=== PATIENT | female | born 1985 | race Caucasian/White ===

== ENCOUNTER 2017-02-22 10:36 | Inpatient (IN) ==
[2017-02-22] MEDS ORDERED: CEFAZOLIN PREMIX (MC ONLY) 2 GM/50 ML BAG IV ONE (10:55)
[2017-02-22] MEDS ORDERED: FAMOTIDINE PB 20 MG/50 ML BAG IV ONE (10:55)
[2017-02-22] MEDS ORDERED: CITRIC ACID/SODIUM CITRATE 30ml PO ONE (10:55)
--- OUTSIDE RECORDS SUMMARY | 2017-02-22 10:55 | External Medical Summary ---
:1985 Author Organization eClinicalWorks Care Team Providers Name Role Phone Mitesh Dickinson Provider Role Unavailable Allergies No Known Allergies Problems Problem Type Condition ICD-9 Code Onset Dates Condition Status Problem Hyperlipemia 272.4 Active Medications Medication Code System Code Instructions Start Date End Date Status Dosage alprazolam [facility] [address]64 0.25 mg orally 2 July 11, 1 tab(s) times a day as 2015 needed for anxiety Results No Known Results Summary Purpose eClinicalWorks Submission
--- OUTSIDE RECORDS SUMMARY | 2017-02-22 10:56 | External Medical Summary | Continuity of Care Document ---
:1985 Author Organization [facility] Address [address] [place], [place] [id number] Phone Care Team Providers Name Role Phone Mitesh Dickinson DO Unavailable Unavailable Allergies, Adverse Reactions, Alerts Substance Reaction Severity Status No Known Drug Allergies Unknown Active Medications Medication Instructions Dosage Effective Status Comments Dates (start - stop) valacyclovir 1 take 1 tablet by - Active gram tablet oral route every day for 5 days levothyroxine 50 take 1 tablet by 50 MCG - Active Adrian Kay , mcg tablet oral route every MD supervising day 28 mg take 1 tablet by Not Available - Active iron-800 mcg oral route every tablet day Problems Condition Effective Dates (start - stop) Clinical Status Encntr screen for infections w sexl - mode of transmiss state, incidental - Encounter for suprvsn of normal - , first trimester 8 weeks gestation of - Encounter for suprvsn of normal - , second trimester 20 weeks gestation of - Generalized anxiety disorder - 9 weeks gestation of - Irregular Menses Abnormal Pap, LSIL - Abnormal Pap, ALEXANDER - Encntr screen for infections w sexl mode of transmiss Encounter for test, result - positive state, incidental state, incidental Endo, nutritional and metab diseases - comp preg, first tri Encounter for suprvsn of normal - , first trimester 13 weeks gestation of - Abnormal Pap, LSIL Abnormal Pap, LSIL Encounter for test, result - negative 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) w/o abn findings Encntr screen for infections w sexl mode of transmiss Pap Smear Screening, Cervix - Encntr screen for infections w sexl mode of transmiss Pap Smear Screening, Cervix High risk heterosexual behavior Contact w and exposure to infect w a - sexl mode of transmiss Encounter for suprvsn of normal - , first trimester 10 weeks gestation of - Encounter for suprvsn of normal - , first trimester Less than 8 weeks gestation of - Encounter for suprvsn of normal - , first trimester 13 weeks gestation of - 9 weeks gestation of - Encounter for suprvsn of normal - , first trimester Encounter for suprvsn of normal - , first trimester 13 weeks gestation of - Encounter for suprvsn of normal - , second trimester 16 weeks gestation of - Encounter for screening of - mother 20 weeks gestation of - Encounter for suprvsn of normal - , second trimester 22 weeks gestation of - Encounter for suprvsn of normal - , second trimester 23 weeks gestation of - Encounter for suprvsn of normal - , second trimester 24 weeks gestation of - IUD Surveillance - Active Trichomonas Vaginitis - Active Vaginal Discharge - Active Herpes Simplex Virus Active Procedures Procedure Date Unknown Results Test Name Date and Time Measure Units Reference Range Abnormal Flag Comments Unknown Advance Directives Directive Yes / No Effective Date File Name Unknown Encounters Encounter Practice Location Reason(s) Diagnoses Date Provider Care Description For Visit Team Members Lowell Mishra Encounter for George-2 Rahul In Womens suprvsn of normal 6-201 [place]. 700 [facility] [place], , second 7 Medical PO Box [email or web address] weeks Center 1522, gestation of [place], 120, [place], [place], [id number], [place], [place] [id number] tel:+ , [place]. tel: [phone] Lowell Mishra Encounter for George-2 Rahul In Womens suprvsn of normal 0-201 [place]. 700 [facility] [place], , second 7 Medical PO Box [email or web address] weeks Center 1522, gestation of [place], 120, [place], [place], [id number], [place] [id number] tel:+ , [place]. tel: [phone] Lowell Mishra Encounter for George-1 Rahul In Womens suprvsn of normal 2-201 [place]. 700 [facility] [place], , second 7 Medical PO Box weeks Center 1522, gestation of [place], 120, [place], [place], [id number], [place] [id number] tel:+ , [place]. tel: [phone] [facility] [place]-0 Rahul In Womens 9-201 [place]. 700 [facility] [place], 7 Medical PO Box Center 1522, [place], 120, [place], [place], [id number], [place] [id number] tel:+ , [place]. tel:[phone] Lowell Mishra Encounter for Juancarlos-2 Rahul In Womens suprvsn of normal 8-201 [place]. 700 [facility] [place], , second 7 Medical PO Box [email or web address] weeks Center 1522, gestation of [place], 120, [place], [place], [id number], [place], [place] [id number] tel:+ , [place]. tel:[phone] Lowell Mishra Encounter for Juancarlos-2 Rahul In Womens Ultrasound screening 8-201 [place]. 700 [facility] [place], of [email or web address] weeks 7 Medical PO Box gestation of Center 1522, [place], 120, [place], [place], , [place] [id number] tel:+2 , [place]. tel: [phone] [facility] Encounter for Juancarlos-0 Rahul In Womens suprvsn of normal 1-201 [place]. 700 [facility] [place], , second 7 Medical PO Box [email or web address] weeks Center 1522, gestation of [place], 120, [place], [place], [id number], [place] [id number] tel: , [place]. tel: [phone] [facility] Encounter for May-1 Rahul In Womens suprvsn of normal 1-201 [place]. 700 [facility] [place], , first 7 Medical PO Box [email or web address] weeks Center 1522, gestation of [place], 120, [place], [place], [id number], [place], [place] [id number] tel: , [place]. tel: [phone] [facility] Endo, nutritional May-1 Rahul In Womens Ultrasound and metab diseases 1-201 [place]. 700 [facility] [place], comp preg, first 7 Medical PO Box triEncounter for Center 1522, suprvsn of normal [place], , first 120, [place], [email or web address] weeks [place], [id number], gestation of [place], [place] [id number] tel: , [place]. tel: [phone] Lowell Mishra Encounter for May-0 Rahul In Womens suprvsn of normal 9-201 [place]. 700 [facility] [place], , first 7 Medical PO Box [email or web address] weeks Center 1522, gestation of [place], 120, [place], [place], [id number], [place], [place] [id number] tel: , [place]. tel: [phone] [facility] Contact w and Apr-2 Rahul In Womens exposure to infect 0-201 [place]. 700 [facility] [place], w a sexl mode of 7 Medical PO Box transmissEncounter Center 1522, for suprvsn of [place], normal , 120, [place], first [email or web address] Mishra, [id number], weeks gestation of [place], [place] [id number] tel: , [place]. tel: [phone] Lowell Mishra 9 weeks gestation Apr-1 Rahul In Womens of 2-201 [place]. 700 [facility] [place], pregnancyEncounter 7 Medical PO Box for suprvsn of Center 1522, normal , [place], first trimester 120, [place], [place], [id number], [place], [place] [id number] tel:+ , [place]. tel: [phone] Lowell Mishra Generalized anxiety Apr-1 Rahul In Womens disorder9 weeks 0-201 [place]. 700 [facility], gestation of 7 Medical PO Box Center 1522, [place], 120, [place], [place], [id number], [place], [place] [id number] tel: , [place]. tel: [phone] Lowell Mishra Encounter for Mar-3 Rahul In Womens suprvsn of normal 0-201 [place]. 700 [facility], , first 7 Medical PO Box trimesterLess than Center 1522, 8 weeks gestation [place], of 120, [place], [place], [id number], [place], [place] [id number] tel:+ , [place]. tel: [phone] Lowell Mishra state, Mar-1 Rahul In Womens incidentalEncounter 6-201 [place]. 700 [facility], for suprvsn of 7 Medical PO Box normal , Center 1522, first trimester8 [place], weeks gestation of 120, [place], [place], , [place], [place] [id number] tel: , [place]. tel: [phone] Lowell Mishra Irregular Mar-0 [place] In Womens MensesAbnormal Pap, 8-201 [facility]. Health [place], LSILAbnormal Pap, 7 700 PO Box AGUSEncntr screen [place] [id number], for infections w Leland Sanam, sexl mode of [place], transmissEncounter 120, , for test, [place], [place] result [place], tel:+ positive [phone] state, , [place]. incidental tel: state, incidental [phone] Lowell Mishra Encntr screen for Aug-2 [place] In Womens infections w sexl 2-201 [place]. [facility] [place], mode of 6 700 PO Box transmissPap Smear Medical 1522, Screening, Center [place], CervixHigh risk [place], heterosexual 120, [id number], behavior [place], [place], tel:+ [phone] , [place]. tel: [phone] [facility] Abnormal Pap, Jun- Rahul In Womens LSILAbnormal Pap, - [place]. 700 [facility], LSILEncounter for 6 Medical PO Box test, Center 1522, result negative [place], 120, [place], [place], [id number], [place], [place] [id number] tel: , [place]. 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 [facility] [place], w/o abn 6 700 PO Box findingsEncntr Medical 1522, screen for Center [place], infections w sexl [place], mode of 120, , transmissEncntr [place]ish[place], screen for [place], tel: infections w sexl [phone] mode of , [place]. transmissPap Smear tel: Screening, Cervix [phone] Lowell Mishra Mar-0 [place] In Womens 4-200 [facility]. [facility], 8 700 PO Box Medical 1522, [address] [place] [address] [place], 120, [id number], [place], [place], tel:[phone] , [place]. tel: [phone] Family History Family Member Diagnosis Age At Onset Maternal uncle Diabetes mellitus Paternal Grandfather Diabetes mellitus Immunizations Vaccine Date Status Comments Unknown Payers Payer name Insurance type Covered libertarian ID [facility]) [facility] Medicare ALWAYS CI [id number] [facility] [id number] Medica [place] [id number] Social History Type Description Quantity Date Captured Unknown Vital Signs Date / Height Weight BMI Pulse Blood Temperature Respiratory Body Head BMI Time: Rate Pressure Rate Surface Circumference percentile Area Unknown Chief Complaint And Reason For Visit Unknown Chief Complaint And Reason For Visit Reason For Referral Reason For Referral Unknown Plan Of Care Date Type Action Status Appointment Ricky Dupree BOOKED Future Order: Radiology Order Ultrasound < 14 wks ([id number]) Ordered Future Order: Lab Order Pap Smear With HPV Reflex If ASCUS Ordered ([id number]) Future Order: Lab Order Pap Smear With HPV Reflex If ASCUS Ordered ([id number]) Future Order: Radiology Order Complete OB Ultrasound > 14 Ordered Weeks ([id number]) Date Type Problem Goal Intervention Status Start Date Unknown. History Of Present Illness Encounter Date Complaint History Of Present Illness This patient has no known history of present illness Functional Status Encounter Date Functional Assessment Cognitive Assessment Unknown Medications Administered Medication Instructions Dosage Effective Dates (start - stop) Status Comments Drug Treatment Unknown Instructions Date Instruction Additional Information HIV and other routine tests risk factors identified by history anticipated course of care nutrition and weight gain counseling, special diet toxoplasmosis precautions (cats / raw meat) sexual activity exercise indications for ultrasound influenza vaccine environmental / work hazards travel use of any medications (including supplements, vitamins, herbs, OTC drugs) domestic violence seat belt use childbirth classes / hospital facilities hospital registration genetic testing new ob handbook
--- OUTSIDE RECORDS SUMMARY | 2017-02-22 10:59 | External Medical Summary | Continuity of Care Document ---
:1985 Author Organization [facility] Address [address] [place], [place] [id number] Phone Care Team Providers Name Role Phone [...] 1 tablet by 50 MCG - Active dArian Kay , mcg tablet oral route every MD supervising day 28 mg take 1 tablet by Not Available - Active iron-800 mcg oral route every tablet day Problems Condition Effective Dates (start - stop) Clinical Status Encntr screen for infections w sexl - mode of transmiss Encounter for suprvsn of normal - , first trimester state, incidental - 8 weeks gestation of - 20 weeks gestation of - Encounter for suprvsn of normal - , second trimester Generalized anxiety disorder - 9 weeks gestation of - Irregular Menses Abnormal Pap, LSIL - Abnormal Pap, ALEXANDER - Encntr screen for infections w sexl mode of transmiss Encounter for test, result - positive state, incidental state, incidental Endo, nutritional and metab diseases - comp preg, first tri Encounter for suprvsn of normal - , first trimester 13 weeks gestation of - Endo, nutritional and metab diseases - comp preg, third tri Encounter for suprvsn of normal - , third trimester 28 weeks gestation of - Abnormal Pap, LSIL Abnormal Pap, LSIL Encounter for test, result - negative 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 [...] first trimester 10 weeks gestation of - Less than 8 weeks gestation of - Encounter for suprvsn of normal - , first trimester Encounter for suprvsn of normal - , first trimester 9 weeks gestation of - Encounter for suprvsn of normal - , first trimester 13 weeks gestation of - 13 weeks gestation of - Encounter for suprvsn of normal - , first trimester Encounter for suprvsn of normal - , second trimester 16 weeks gestation of - Encounter for screening of - mother 20 weeks gestation of - 22 weeks gestation of - Encounter for suprvsn of normal - , second trimester Encounter for suprvsn of normal - , second trimester 23 weeks gestation of - 24 weeks gestation of - Encounter for suprvsn of normal - , second trimester IUD Surveillance - Active Trichomonas Vaginitis - Active Vaginal Discharge - Active Herpes Simplex Virus Active Procedures Procedure Date Unknown Results Test Name Date and Time Measure Units Reference Range Abnormal Flag Comments Unknown Advance Directives Directive Yes / No Effective Date File Name Unknown Encounters Encounter Practice Location Reason(s) Diagnoses Date Provider Care Description For Visit Team Members [facility], nutritional Aug-2 Rahul In Womens and metab diseases 3-201 [place]. 700 [facility] [place], comp preg, third 7 Medical PO Box triEncounter for Center 1522, suprvsn of normal [place], , third 120, [place], [email or web address] weeks Mishra, , gestation of [place], [id number] tel:+ , [place]. tel: [phone] Lowell Mishra Aug-0 Rahul In Womens 4-201 [place]. 700 [facility] [place], 7 Medical PO Box [place] 1522, [place], 120, [place], [place], [id number], [place], [place] [id number] tel: , . tel: [phone] Lowell Mishra 24 weeks gestation George-2 Rahul In Womens of 6-201 [place]. 700 [facility] [place], pregnancyEncounter 7 Medical PO Box for suprvsn of [place] 1522, normal , [place], second trimester 120, [place], [place], , [place], [place] [id number] tel: , . tel: [phone] Lowell Mishra Encounter for George-2 Rahul In Womens suprvsn of normal 0-201 [place]. 700 [facility] [place], , second 7 Medical PO Box [email or web address] weeks Center 1522, gestation of [place], 120, [place], [place], , [place], [place] [id number] tel: , . tel: [phone] Lowell Mishra 22 weeks gestation George-1 Rahul In Womens 2-201 [place]. 700 [facility] [place], pregnancyEncounter 7 Medical PO Box for suprvsn of Center 1522, normal , [place], second trimester 120, [place], [place], , [place], [place] [id number] tel: , . tel: [phone] Lowell Mishra 20 weeks gestation Juancarlos-2 Rahul In Womens of 8-201 [place]. 700 [facility] [place], pregnancyEncounter 7 Medical PO Box for suprvsn of Center 1522, normal , [place], second trimester 120, [place], [place], [id number], [place], [place] [id number] tel:+ , [place]. tel:[phone] [facility] Encounter for Juancarlos-2 Rahul In Womens Ultrasound screening 8 [place]. 700 [facility] [place], of [email or web address] weeks 7 Medical PO Box gestation of Center 1522, [place], 120, [place], [place], [id number], [place], [place] [id number] tel:+ , [place]. tel: [phone] [facility] Encounter for Juancarlos-0 Rahul In Womens suprvsn of normal [place]. 700 [facility] [place], , second 7 Medical PO Box [email or web address] weeks Center 1522, gestation of [place], 120, [place], [place], [id number], [place], [place] [id number] tel:+ , [place]. tel:[phone] Lowell Mishra 13 weeks gestation May-1 Rahul In Womens of [place]. 700 [facility] [place], pregnancyEncounter 7 Medical PO Box for suprvsn of Center 1522, normal , [place], first trimester 120, [place], [place], [id number], [place], [place] [id number] tel:+ , [place]. tel: [phone] Lowell Mishra Endo, nutritional May-1 Rahul In Womens Ultrasound and metab diseases 1- [place]. 700 [facility] [place], comp preg, first 7 Medical PO Box triEncounter for Center 1522, suprvsn of normal [place], , first 120, [place], [id number] weeks Mishra, [id number], gestation of [place], [place] [id number] tel:+ , [place]. tel:[phone] Lowell Mishra Encounter for May-0 Rahul In Womens suprvsn of normal 9- [place]. 700 [facility] [place], , first 7 Medical PO Box [email or web address] weeks Center 1522, gestation of [place], 120, [place], [place], [id number], [place], [place] [id number] tel:+ , [place]. tel:[phone] [facility] Contact w and Apr-2 Rahul In Womens exposure to infect 0-201 [place]. 700 [facility] [place], w a sexl mode of [address] [facility] Center 1522, for suprvsn of [place], normal , 120, [place], first [email or web address] Mishra, [id number], weeks gestation of [place], [place] [id number] tel:+ , [place]. tel:[phone] [facility] Encounter for Apr-1 Rahul In Womens suprvsn of normal 2-201 [place]. 700 [facility] [place], , first 7 Medical PO Box trimester9 weeks Center 1522, gestation of [place], 120, [place], [place], [id number], [place], [place] [id number] tel:+ , [place]. tel:[phone] [facility] Generalized anxiety Apr-1 Rahul In Womens disorder9 weeks 0-201 [place]. 700 [facility] [place], gestation of 7 Medical PO Box Center 1522, [place], 120, [place], [place], , [place], [place] [id number] tel:+ , [place]. tel:[phone] [facility] Less than 8 weeks Mar-3 Rahul In Womens gestation of 0-201 [place]. 700 [facility] [place], pregnancyEnccollege medical centerer 7 Medical PO Box for suprvsn of Center 1522, normal , [place], first trimester 120, [place], [place], [id number], [place], [place] [id number] tel:+ , [place]. tel:[phone] [facility] Encounter for Mar-1 Rahul In Womens suprvsn of normal 6-201 [place]. 700 [facility] [place], , first 7 Medical PO Box trimester Center 1522, state, incidental8 [place], weeks gestation of 120, [place], [place], , [place], [place] [id number] tel: , [place]. tel: [phone] [facility] Irregular Mar-0 [place] In Womens MensesAbnormal Pap, 8-201 [facility]. [facility] [place], LSILAbnormal Pap, 7 700 PO Box AGUSEncntr screen Medical 1522, for infections w Center [place], sexl mode of [place], transmissEncounter 120, , for test, Mishra, result [place], tel: positive [phone] state, , [place]. incidental tel: state, incidental [phone] [facility] Encntr screen for Aug-2 [place] In Womens infections w sexl 2-201 [place]. [facility] [place], mode of 6 700 PO Box transmissPap Smear Medical 1522, Screening, [place], CervixHigh risk [place], heterosexual 120, [id number], behavior [place], [place], tel:[phone] , [place]. tel: [phone] [facility] Abnormal Pap, Mar-1 Rahul In Womens LSILAbnormal Pap, 1-201 [place]. 700 [facility] [place], LSILEncounter for 6 Medical PO Box test, Center 1522, result negative [place], 120, [place], [place], , [place], [place] [id number] tel: , [place]. 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 [facility] [place], w/o abn 6 700 PO Box findingsEncntr Medical 1522, screen for Center [place], infections w sexl [place], mode of 120, [id number], transmissEncntr [place]ish[place], screen for [place], tel: infections w sexl [phone] mode of , [place]. transmissPap Smear tel: Screening, Cervix [phone] [facility] Mar-0 [place] In Womens 4-200 [facility]. [facility] [place], 8 700 PO Box Medical 1522, [place], [place], 120, [id number], [place], [place], tel:[phone] 392310 , . tel:[phone] Family History Family Member Diagnosis Age At Onset Maternal uncle Diabetes mellitus Paternal Grandfather Diabetes mellitus Immunizations Vaccine Date Status Comments Unknown Payers Payer name Insurance type Covered libertarian ID Authorization(s) [employer] ([employer]) Medicare ALWAYS CI [id number] PRIM [employer] [place] [employer] - Medicaid MC [id number] Medica CI [id number] Social History Type Description Quantity Date Captured Alcohol Use Details No Caffeine Use Details Unknown Tobacco Use Status Unknown Smoking Status Never smoker Vital Signs Date / Height Weight BMI Pulse Blood Temperature Respiratory Body Head BMI Time: Rate Pressure Rate Surface Circumference percentile Area Unknown Chief Complaint And Reason For Visit Unknown Chief Complaint And Reason For Visit Reason For Referral Reason For Referral Unknown Plan Of Care Date Type Action Status Appointment Kristal Dupree & CHERIE BOOKED Future Order: Radiology Order Ultrasound < 14 wks ([id number]) Ordered Future Order: Lab Order Pap Smear With HPV Reflex If ASCUS Ordered ([id number]) Future Order: Lab Order Pap Smear With HPV Reflex If ASCUS Ordered ([id number]) Future Order: Radiology Order Complete OB Ultrasound > 14 Ordered Weeks ([id number]) Date Type Problem Goal Intervention Status Start [...]
--- OUTSIDE RECORDS SUMMARY | 2017-02-22 10:59 | External Medical Summary | Continuity of Care Document ---
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 tel: [phone] Lowell Mishra Encounter for George-2 Rahul In Womens suprvsn of normal 0-201 [place]. 700 Health [place], , second 7 Medical PO Box [email or web address] weeks Center 1522, gestation of [place], 120, [place], [place], [id number], [place], [place] [id number] tel:+ , [place]. tel: [phone] Lowell Mishra George-1 Rahul In Womens 9-201 [place]. 700 Health [place], 7 Medical PO Box Center 1522, [place], 120, [place], [place], , [place], [place] [id number] tel:+ , [place]. tel: [phone] Lowell Mishra Encounter for George-1 Rahul In Womens suprvsn of normal 2-201 [place]. 700 Health [place], , second 7 Medical PO Box [email or web address] weeks Center 1522, gestation of [place], 120, [place], [place], [id number], [place], [place] [id number] tel: , [place]. tel: [phone] Lowell Mishra Encounter for Juancarlos-2 Rahul In Womens suprvsn of normal 8-201 [place]. 700 Health [place], , second 7 Medical PO Box [email or web address] weeks Center 1522, gestation of [place], 120, [place], [place], [id number], [place], [place] [id number] tel: , [place]. tel: [phone] Lowell Mishra Encounter for Juancarlos-2 Rahul In Womens Ultrasound screening 8-201 [place]. 700 Health [place], of [email or web address] weeks 7 Medical PO Box gestation of Center 1522, [place], 120, [place], [place], , [place], [place] [id number] tel: , [place]. tel: [phone] [facility] Encounter for Juancarlos-0 Rahul In Womens suprvsn of normal 1-201 [place]. 700 Health [place], , second 7 Medical PO Box [email or web address] weeks Center 1522, gestation of [place], 120, [place], [place]ra, [id number], [place], [place] [id number] tel:+ , [place]. tel: [phone] [facility] Encounter for May-1 Rahul In Womens suprvsn of normal 1-201 [place]. 700 Health [place], , first 7 Medical PO Box [email or web address] weeks Center 1522, gestation of [place], 120, [place], [place], [id number], [place], [place] [id number] tel:+ , [place]. tel: [phone] [facility] Endo, nutritional May-1 Rahul In Womens Ultrasound and metab diseases 1-201 [place]. 700 Health [place], comp preg, first 7 Medical PO Box triEncounter for Neptune 1522, suprvsn of normal [place]es, , first 120, [place], [email or web address] weeks Tad, [id number], gestation of [place], [place] [id number] tel: , [place]. tel: [phone] Lowell Mishra 13 weeks gestation May-0 Rahul In Womens of 9-201 [place]. 700 Health [place], pregnancyEncounter 7 Medical PO Box for suprvsn of Ne[place] 1522, normal , [place] Montes, first trimester 120, [place], [place], [id number], [place], [place] [id number] tel: , [place]. tel: [phone] [facility] Contact w and Apr-2 Rahul In Womens exposure to infect 0-201 [place]. 700 [facility] [place], w a sexl mode of 7 Medical PO Box transmissEncounter Nept[place] 1522, for suprvsn of [place]es, normal , 120, [place], first [email or web address] Mishra, [id number], weeks gestation of [place], [place] [id number] tel: , [place]. tel: [phone] Lowell Mishra 9 weeks gestation Apr-1 Rahul In Womens of 2-201 [place]. 700 Health [place], pregnancyEncounter 7 Medical PO Box for suprvsn of Center 1522, normal , [place]es, first trimester 120, [place], Mishra, [id number], [place], [place] [id number] tel:+ , [place]. tel: [phone] Lowell Mishra Generalized anxiety Apr-1 Rahul In Womens disorder9 weeks 0-201 [place]. 700 [facility], gestation of 7 Medical PO Box Center 1522, [place], 120, [place], [place]ra, [id number], [place], [place] [id number] tel: , [place]. tel: [phone] Lowell Mishra Encounter for Mar-3 Rahul In Womens suprvsn of normal 0-201 [place]. 700 [facility], , first 7 Medical PO Box trimesterLess than Center 1522, 8 weeks gestation [place], of 120, [place], Mishra, [id number], [place], [place] [id number] tel:+ , [place]. tel: [phone] Lowell Mishra state, Mar-1 Rahul In Womens incidentalEncounter 6-201 [place]. 700 [facility], for suprvsn of 7 Medical PO Box normal , Center 1522, first trimester8 [place]es, weeks gestation of 120, [place], [place], , [place], [place] [id number] tel: , US. tel: [phone] Lowell Mishra Irregular Mar-0 Gibbs In Womens MensesAbnormal Pap, 8-201 [facility]. Health [place], LSILAbnormal Pap, 7 700 PO Box AGUSEncntr screen [place] [id number], for infections w Neptune Teller, sexl mode of [place] Montes, transmissEncounter 120, , for test, Mishra, [place] result [place], tel:+ positive [phone] state, , [place]. incidental tel: state, incidental [phone] Lowell Mishra Encntr screen for Aug-2 Gibbs In Womens infections w sexl 2-201 [place]. Health [place], mode of 6 700 PO Box transmissPap Smear Medical 1522, Screening, Center [place], CervixHigh risk [place] Montes, heterosexual 120, [id number], behavior Mishra, [place], tel:+ [phone] , [place]. tel: [phone] [facility] Abnormal Pap, Jun- Rahul In Womens LSILAbnormal Pap, - Adrian. 700 [employer] [place], LSILEncounter for 6 Medical PO Box test, Center 1522, result negative [place], 120, [place], Mishra, [id number], [place], [place] [id number] tel: , [place]. 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 Health [place], w/o abn 6 700 PO Box findingsEncntr Medical 1522, screen for [place], infections w sexl [place]es, mode of 120, , transmissEncntr Mishra, screen for [place], tel: infections w sexl [phone] mode of , [place]. transmissPap Smear tel: Screening, Cervix [phone] Lowell Mishra Mar-0 Gibbs In Womens 4-200 [place]. [employer] [place], 8 700 PO Box Medical 1522, [address] [place] [address] [place], 120, [id number], [place], [place], tel:[phone] , [place]. tel: [phone] Family History Family Member Diagnosis Age At Onset Maternal uncle Diabetes mellitus Paternal Grandfather Diabetes mellitus Immunizations Vaccine Date Status Comments Unknown Payers Payer name Insurance type Covered constitution party ID Authorization(s) [facility] Medicare ALWAYS CI [id number] [facility] [id number] Medica CI [id number] Social History Type Description Quantity Date Captured [...] Order: Radiology Order Ultrasound < 14 wks ([id number]) Ordered Future Order: Lab Order Pap Smear With HPV Reflex If ASCUS Ordered ([id number]) Future Order: Lab Order Pap Smear With HPV Reflex If ASCUS Ordered (WPMPap1) Future Order: Radiology Order Complete OB Ultrasound > 14 Ordered Weeks ([id number]) Date Type Problem Goal Intervention Status Start [...]
--- OUTSIDE RECORDS SUMMARY | 2017-02-22 10:59 | External Medical Summary | Continuity of Care Document ---
:1985 Author Organization [facility] [employer] [facility] Address [address] [place], [place] [phone] Phone Care Team Providers Name Role Phone [...] infections w sexl - mode of transmiss Endo, nutritional and metab diseases - comp preg, third tri Encounter for suprvsn of normal - , third trimester 28 weeks gestation of - state, incidental - Encounter for suprvsn of normal - , first trimester 8 weeks gestation of - Encounter for suprvsn of normal - , second trimester 20 weeks gestation of - Generalized anxiety disorder - 9 weeks gestation of - Irregular Menses Abnormal Pap, LSIL - Encntr screen for infections w sexl mode of transmiss Abnormal Pap, ALEXANDER - state, incidental state, incidental Encounter for test, result - positive Endo, nutritional and metab diseases - comp preg, first tri Encounter for suprvsn of normal - , first trimester 13 weeks gestation of - Encntr screen for infections w sexl mode of transmiss 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) w/o abn findings Pap Smear Screening, Cervix - Abnormal Pap, LSIL Abnormal Pap, LSIL Encounter for test, result - negative Encntr screen for infections w sexl mode of transmiss Pap Smear Screening, Cervix High risk heterosexual behavior Abnormal Pap, LSIL - Abnormal Pap, LSIL Encounter for suprvsn of normal - , third trimester Encounter for suprvsn of normal , third trimester 30 weeks gestation of - 30 weeks gestation of Encounter for suprvsn of normal - , first trimester Less than 8 weeks gestation of - Encounter for suprvsn of normal - , first trimester 9 weeks gestation of - Encounter for suprvsn of normal - , first trimester Contact w and exposure to infect w a - sexl mode of transmiss 10 weeks gestation of - Encounter for suprvsn of normal - , first trimester 13 weeks gestation of - Encounter for suprvsn of normal - , first trimester 13 weeks gestation of - Encounter for suprvsn of normal - , second trimester 16 weeks gestation of - Encounter for suprvsn of normal - , second trimester 22 weeks gestation of - Encounter for suprvsn of normal - , second trimester 23 weeks gestation of - Encounter for suprvsn of normal - , second trimester 24 weeks gestation of - Encounter for screening of - mother 20 weeks gestation of - IUD Surveillance - Active Trichomonas Vaginitis - Active Vaginal Discharge - Active Herpes Simplex Virus Active Procedures Procedure Date OB Visit No Charge Results Test Name Date and Time Measure Units Reference Range Abnormal Flag Comments Panel Description: Glucose [Mass/volume] in Serum or Plasma --1 hour post 50 g glucose PO GLUCOSE, 106 mg/dL <140 N Test performed at [facility] GESTATIONAL SCREEN 14:17:00 [id number] (50G)-[address] [place] [address]Yxjgbbhd: ASHTYN MACKEY DO,MPH Panel Description: HEMOGLOBIN + HEMATOCRIT HEMOGLOBIN 14:17:00 10.9 g/dL 11.7-15.5 L HEMATOCRIT 14:17:00 31.7 % 35.0-45.0 L Test performed at [id number] [place] [address]Mjcvnsrl: ASHTYN MACKEY DO,MPH Panel Description: Thyrotropin [Units/volume] in Serum or Plasma TSH 14:17:00 1.02 mIU/L N Reference Range > or=20 Years 0.40-4.50 Ranges First trimester 0.26-2.66 Second trimester 0.55-2.73 Third trimester 0.43-2.91REPORT COMMENT:FASTING:NOTest performed at [employer] [id number] [place] [address]Ossksabz: ASHTYN MACKEY DO,MPH Advance Directives Directive Yes / No Effective Date File Name Unknown Encounters Encounter Practice Location Reason(s) Diagnoses Date Provider Care Description For Visit Team Members Lowell Mishra Abnormal Pap, Sep-0 Rahul In Womens LSILAbnormal Pap, 6-[address], LSILEncounter for 7 Medical PO Box suprvsn of [place] Center 1522, , third DrCasper, trimesterEncount 120, [place], for suprvsn of Mishra, [id number], normal , [place], third [email or web address] tel:[phone] weeks gestation of , [place]. [email or web address] weeks tel: gestation of [phone] [facility] Endo, nutritional Aug-2 Rahul In Womens and metab diseases 3-201 [place]. 700 Health [place], comp preg, third 7 Medical PO Box triEncounter for Center 1522, suprvsn of normal [place], , third 120, [place], [email or web address] weeks Mishra, , gestation of [place], [place] [id number] tel:+ , [place]. tel: [phone] [facility] Encounter for George-2 Rahul In Womens suprvsn of normal 6-201 [place]. 700 Health [place], , second 7 Medical PO Box [email or web address] weeks Center 1522, gestation of [place], 120, [place], [place], [id number], [place], [place] [id number] tel: , [place]. tel: [phone] [facility] Encounter for George-2 Rahul In Womens suprvsn of normal 0-201 [place]. 700 Health [place], , second 7 Medical PO Box [email or web address] weeks Center 1522, gestation of [place], 120, [place], [place], [id number], [place], [place] [id number] tel: , [place]. tel: [phone] Lowell Mishra Encounter for George-1 Rahul In Womens suprvsn of normal 2-201 [place]. 700 [facility] [place], , second 7 Medical PO Box [email or web address] weeks Center 1522, gestation of [place], 120, [place], [place], [id number], [place], [place] [id number] tel: , . tel: [phone] Lowell Mishra Encounter for Juancarlos-2 Rahul In Womens suprvsn of normal 8-201 [place]. 700 [facility] [place], , second 7 Medical PO Box [email or web address] weeks Center 1522, gestation of [place], 120, [place], [place], [id number], [place], [place] [id number] tel: , . tel: [phone] [facility] Encounter for Juancarlos-2 Rahul In Womens Ultrasound screening 8-201 [place]. 700 Health [place], of [email or web address] weeks 7 Medical PO Box gestation of Center 1522, [place], 120, [place], Mishra, [id number], [place], [place] [id number] tel:+ , [place]. tel: [phone] [facility] Encounter for Juancarlos-0 Rahul In Womens suprvsn of normal 1-201 [place]. 700 [facility] [place], , second 7 Medical PO Box [email or web address] weeks Center 1522, gestation of [place], 120, [place], [place]ishra, [id number], [place], [place] [id number] tel:+ , [place]. tel: [phone] [facility] Encounter for May-1 Rahul In Womens suprvsn of normal 1-201 [place]. 700 [facility] [place], , first 7 Medical PO Box [email or web address] weeks Center 1522, gestation of [place], 120, [place], [place], [id number], [place], [place] [id number] tel:+ , [place]. tel: [phone] [facility] Endo, nutritional May-1 Rahul In Womens Ultrasound and metab diseases 1-201 [place]. 700 Health [place], comp preg, first 7 Medical PO Box triEncounter for Center 1522, suprvsn of normal [place], , first 120, [place], [email or web address] weeks Tad, , gestation of [place], [place] [id number] tel:+ , . tel: [phone] Lowell Mishra Encounter for May-0 Rahul In Womens suprvsn of normal 9-201 [place]. 700 Health [place], , first 7 Medical PO Box [email or web address] weeks Center 1522, gestation of [place], 120, [place], [place], [id number], [place], [place] [id number] tel:+ , . tel: [phone] Lowell Mishra Encounter for Apr-2 Rahul In Womens suprvsn of normal 0-201 [place]. 700 Health [place], , first 7 Medical PO Box trimesterContact w Center 1522, and exposure to [place]es, infect w a sexl 120, [place], mode of [email or web address] Mishra, , weeks gestation of [place], [place] [id number] tel:+ , [place]. tel:[phone] Lowell Mishra Encounter for Apr-1 Rahul In Womens suprvsn of normal 2-201 [place]. 700 [facility], , first 7 Medical PO Box trimester9 weeks Center 1522, gestation of [place], 120, [place], [place]ishra, [id number], [place], [place] [id number] tel:+ , [place]. tel:[phone] Lowell Mishra Generalized anxiety Apr-1 Rahul In Womens disorder9 weeks 0-201 [place]. 700 [facility], gestation of 7 Medical PO Box Center 1522, [place], 120, [place], Mishra, , [place], [place] [id number] tel:+ , [place]. tel:[phone] Lowell Mishra Encounter for Mar-3 Rahul In Womens suprvsn of normal 0-201 [place]. 700 [facility], , first 7 Medical PO Box trimesterLess than Center 1522, 8 weeks gestation [place], of 120, [place], Mishra, [id number], [place], [place] [id number] tel:+ , [place]. tel:[phone] Lowell Mishra state, Mar-1 Rahul In Womens incidentalEncounter 6-201 [place]. 700 [facility], for suprvsn of 7 Medical PO Box normal , Center 1522, first trimester8 [place]es, weeks gestation of 120, [place], [place], , [place], [place] [address] tel:+ , [place]. tel:[phone] Lowell Mishra Irregular Mar-0 Gibbs In Womens MensesAbnormal Pap, 8-201 [facility]. Health ID, LSILEncntr screen 7 700 PO Box for infections w Medical 1522, sexl mode of Center [place], transmissAbnormal [place]es, Pap, AGUS 120, , state, [place], [place] incidental [place], tel: [facility], [phone] incidentalEncounter , . for test, tel: result positive [phone] [facility] Veliz screen for Aug-2 Gibbs In Womens infections w sexl 2-201 [place]. Health [place], mode of 6 700 PO Box transmissPap Smear Medical 1522, Screening, Center [place], CervixHigh risk Cas[place] Montes, heterosexual 120, , behavior [place], [place], tel:[phone] , [place]. tel: [phone] [facility] Abnormal Pap, Mar-1 Rahul In Womens LSILAbnormal Pap, 1-201 [place]. 700 Health [place], LSILEncounter for 6 Medical PO Box test, Center 1522, result negative [place], 120, [place], Mish[place], , [place], [place] tel: , [place]. tel: [phone] Lowell Veliz screen for Mar-0 Gibbs In Womens infections w sexl 2-201 [place]. 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 Screening, Cervix tel: [phone] Lowell Mishra Mar-0 Gibbs In Womens 4-200 [facility] [place]. Health PA, 8 700 PO Box Medical 1522, Center [place], [place] Montes, 120, , [facility] [place], tel:[phone] , [place]. tel: [phone] Family History Family Member Diagnosis Age At Onset Maternal uncle Diabetes mellitus Paternal Grandfather Diabetes mellitus Immunizations Vaccine Date Status Comments Unknown Payers Payer name Insurance type Covered libertarian ID Authorization(s) [employer] ([employer]) Medicare ALWAYS CI [id number] PRIM [employer] [place] [employer] - Medicaid [place] [id number] Medica [id number] Social History Type Description Quantity Date Captured Alcohol Use Details No Caffeine Use Details Unknown Tobacco Use Status Unknown Smoking Status Never smoker Vital Signs Date / Height Weight BMI Pulse Blood Temperature Respiratory Body Head BMI Time: Rate Pressure Rate Surface Circumference percentile Area 179.70 29.9 126/63 -2017 lbs 0 mm[Hg] 1:26 kg/m PM eter (2) Chief Complaint And Reason For Visit Unknown Chief Complaint And Reason For Visit Reason For Referral Reason For Referral Unknown Plan Of Care Date Type Action Status Appointment Kristal Dupree BOOKED Future Order: Radiology Order Ultrasound < 14 wks ([id number]) Ordered Future Order: Lab Order Pap Smear With HPV Reflex If ASCUS Ordered (WPMPap1) Future Order: Lab Order Pap Smear With HPV Reflex If ASCUS Ordered (WPMPap1) Future Order: Radiology Order Complete OB Ultrasound > 14 Ordered Weeks ([id number]) Date Type Problem Goal Intervention Status Start [...]
--- OUTSIDE RECORDS SUMMARY | 2017-02-22 10:59 | External Medical Summary | Continuity of Care Document ---
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 tel: [phone] Lowell Mishra Encounter for George-2 Rahul In Womens suprvsn of normal 0-201 [place]. 700 Health [place], , second 7 Medical PO Box [email or web address] weeks Center 1522, gestation of [place] Montes, 120, [place], [place], [id number], [place], [place] [id number] tel:+ , [place]. tel: [phone] Lowell iMshra George-1 Rahul In Womens 3-201 [place]. 700 Health PA, 7 Medical PO Box Center 1522, [place], 120, [place], [place], , [place], [place] [id number] tel:+ , [place]. tel: [phone] Lowell Mishra Encounter for George-1 Rahul In Womens suprvsn of normal 2-201 [place]. 700 Health [place], , second 7 Medical PO Box [email or web address] weeks Center 1522, gestation of [place]es, 120, [place], [place]ad, [id number], [place], [place] [id number] tel: , [place]. tel: [phone] Lowell Mishra Encounter for Juancarlos-2 Rahul In Womens suprvsn of normal 8-201 [place]. 700 Health [place], , second 7 Medical PO Box [email or web address] weeks Center 1522, gestation of [place] Montes, 120, [place], [place], [id number], [place], [place] [id number] tel: , [place]. tel: [phone] Lowell Mishra Encounter for Juancarlos-2 Rahul In Womens Ultrasound screening 8-201 [place]. 700 Health PA, of weeks 7 Medical PO Box gestation of Center 1522, [place], 120, [place], [place], , [place], [place] [id number] tel: , [place]. tel: [phone] [facility] Encounter for Juancarlos-0 Rahul In Womens suprvsn of normal 1-201 [place]. 700 Health [place], , second 7 Medical PO Box [email or web address] weeks Center 1522, gestation of [place] Montes, 120, [place], Mishra, [id number], [place], [place] [id number] tel: , [place]. tel: [phone] Lowell Mishra Encounter for May-1 Rahul In Womens suprvsn of normal 1-201 [place]. 700 Health [place], , first 7 Medical PO Box [email or web address] weeks Center 1522, gestation of [place] Montes, 120, [place], [place]ad, [id number], [place], [place] [id number] tel:+ , [place]. tel: [phone] [facility] Endo, nutritional May-1 Rahul In Womens Ultrasound and metab diseases 1-201 [place]. 700 Health PA, comp preg, first 7 Medical PO Box [facility], suprvsn of normal [place], , first 120, [place], [email or web address] weeks Tad, [id number], gestation of [place], [place] [id number] tel: , [place]. tel: [phone] Lowell Mishra Encounter for May-0 Rahul In Womens suprvsn of normal 9-201 [place]. 700 Health PA, , first 7 Medical PO Box [email or web address] weeks Center 1522, gestation of [place] Montes, 120, [place], Tad, [id number], [place], [place] [id number] tel:+ , [place]. tel: [phone] [facility] Contact w and Apr-2 Rahul In Womens exposure to infect 0-201 [place]. 700 Health PA, w a sexl mode of 7 Medical PO Box transmissEncounter Center 1522, for suprvsn of [place] Montes, normal , 120, [place], first [email or web address] Mishra, [id number], weeks gestation of [place], [place] [id number] tel: , [place]. tel: [phone] Lowell Mishra 9 weeks gestation Apr-1 Rahul In Womens of 2-201 [place]. 700 Health MD, pregnancyEncounter 7 Medical PO Box for suprvsn of Center 1522, normal , [place] Montes, first trimester 120, [place], Mishra, [id number], [place], [place] [id number] tel:+ , [place]. tel: [phone] [facility] Generalized anxiety Apr-1 Rahul In Womens disorder9 weeks 0-201 [place]. 700 Health MD, gestation of 7 Medical PO Box Center 1522, [place], 120, [place], Mishra, [id number], [place], [place] [id number] tel: , [place]. tel: [phone] [facility] Less than 8 weeks Mar-3 Rahul In Womens gestation of 0-201 [facility] 700 [facility], pregnancyEncounter 7 Medical PO Box for suprvsn of Center 1522, normal , Cas[place] Montes, first trimester 120, [place], Mishra, [id number], [place], [place] [id number] tel: , [place]. tel: [phone] [facility] state, Mar-1 Rahul In Womens incidentalEncounter 6-201 [place]. 700 [facility], for suprvsn of 7 Medical PO Box normal , Center 1522, first trimester8 Casper Montes, weeks gestation of 120, [place], Mishra, , [place], [place] [id number] tel: , [place]. tel: [phone] [facility] Irregular Mar-0 Gibbs In Womens MensesAbnormal Pap, 8-201 [facility]. Health MD, LSILAbnormal Pap, 7 700 PO Box AGUSEncntr screen [place] [id number], for infections w [place], sexl mode of Casper Montes, transmissEncounter 120, , for test, Tad, result [place], tel:+ positive [phone] state, , [place]. incidental tel: state, incidental [phone] [facility] Encntr screen for Aug-2 Gibbs In Womens infections w sexl 2-201 [facility]. Health PA, mode of 6 700 PO Box transmissPap Smear Medical 1522, Screening, Center [place], CervixHigh risk Casper Montes, heterosexual 120, [id number], behavior Mishra, [place], tel:+ [phone] , [place]. tel: [phone] [facility] Abnormal Pap, Jun- Rahul In Womens LSILAbnormal Pap, - [place]. 700 [employer] PA, LSILEncounter for 6 Medical PO Box test, Center 1522, result negative [place], 120, [place], Mishra, [id number], [place], [place] [id number] tel: , [place]. 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 Health PA, w/o abn 6 700 PO Box findingsEncntr Medical 1522, screen for [place], infections w sexl Casper Montes, mode of 120, , transmissEncntr Mishra, screen for [place], tel: infections w sexl [id number] mode of , [place]. transmissPap Smear tel: Screening, Cervix [phone] Lowell Mishra Mar-0 Gibbs In Womens 4-200 [facility]. [employer] PA, 8 700 PO Box Medical 1522, [address] [place], 120, [id number], [place], [place], tel:[phone] , [place]. tel: [phone] Family History Family Member Diagnosis Age At Onset Maternal uncle Diabetes mellitus Paternal Grandfather Diabetes mellitus Immunizations Vaccine Date Status Comments Unknown Payers Payer name Insurance type Covered republican ID [facility]) [facility] Medicare ALWAYS CI [id number] [facility] [id number] Medica CI [id number] Social History Type Description Quantity Date Captured [...] Order: Radiology Order Ultrasound < 14 wks ([id number]) Ordered Future Order: Lab Order Pap Smear With HPV Reflex If ASCUS Ordered (WPMPap1) Future Order: Lab Order Pap Smear With HPV Reflex If ASCUS Ordered (WPMPap1) Future Order: Radiology Order Complete OB Ultrasound > 14 Ordered Weeks ([id number]) Date Type Problem Goal Intervention Status Start [...]
--- OUTSIDE RECORDS SUMMARY | 2017-02-22 10:59 | External Medical Summary | Continuity of Care Document ---
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 tel: [phone] Lowell Mishra Encounter for George-2 Rahul In Womens suprvsn of normal 0-201 [place]. 700 [facility] [place], , second 7 Medical PO Box [email or web address] weeks Center 1522, gestation of [place], 120, [place], [place], [id number], [place], [place] [id number] tel:+ , [place]. tel: [phone] Lowell Mishra Encounter for George-1 Rahul In Womens suprvsn of normal 2-201 [place]. 700 Health [place], , second 7 Medical PO Box [email or web address] weeks Center 1522, gestation of [place], 120, [place], [place], [id number], [place], [place] [id number] tel:+ , [place]. tel: [phone] Lowell Mishra George-1 Rahul In Womens 2-201 [place]. 700 Health [place], 7 Medical PO Box Center 1522, [place], 120, [place], [place], [id number], [place], [place] [id number] tel:+ , [place]. tel: [phone] Lowell Mishra Encounter for Juancarlos-2 Rahul In Womens suprvsn of normal 8-201 [place]. 700 Health [place], , second 7 Medical PO Box [email or web address] weeks Center 1522, gestation of [place], 120, [place], [place], [id number], [place], [place] [id number] tel:+ , [place]. tel:[phone] Lowell Mishra Encounter for Juancarlos-2 Rahul In Womens Ultrasound screening 8-201 [place]. 700 Health [place], of weeks 7 Medical PO Box gestation of Center 1522, [place], 120, [place], [place], [id number], [place] [id number] tel:+ , [place]. tel: [phone] [facility] Encounter for Juancarlos-0 Rahul In Womens suprvsn of normal 1-201 [place]. 700 [facility] [place], , second 7 Medical PO Box [email or web address] weeks Center 1522, gestation of [place], 120, [place], [place], [id number], [place], [place] [id number] tel: , [place]. tel: [phone] Lowell Mishra Encounter for May-1 Rahul In Womens suprvsn of normal 1-201 [place]. 700 Health [place], , first 7 Medical PO Box [email or web address] weeks Center 1522, gestation of [place], 120, [place], [place], [id number], [place], [place] [id number] tel:+ , [place]. tel: [phone] [facility] Endo, nutritional May-1 Rahul In Womens Ultrasound and metab diseases 1-201 [place]. 700 Health [place], comp preg, first 7 [facility], suprvsn of normal [place], , first 120, [place], [email or web address] weeks Tad, [id number], gestation of [place], [place] [id number] tel: , [place]. tel: [phone] Lowell Mishra Encounter for May-0 Rahul In Womens suprvsn of normal 9-201 [place]. 700 Health [place], , first 7 Medical PO Box [email or web address] weeks Center 1522, gestation of [place], 120, [place], [place], [id number], [place], [place] [id number] tel:+ , [place]. tel: [phone] [facility] Contact w and Apr-2 Rahul In Womens exposure to infect 0-201 [place]. 700 [facility] [place], w a sexl mode of 7 Medical PO Box transmissEncounter Center 1522, for suprvsn of [place], normal , 120, [place], first [email or web address] Mishra, [id number], weeks gestation of [place], [place] [id number] tel: , [place]. tel: [phone] Lowell Mishra 9 weeks gestation Apr-1 Rahul In Womens of 2-201 [place]. 700 Health [place], pregnancyEncounter 7 Medical PO Box for suprvsn of Center 1522, normal , [place], first trimester 120, [place], [place], [id number], [place], [place] [id number] tel:+ , [place]. tel: [phone] [facility] Generalized anxiety Apr-1 Rahul In Womens disorder9 weeks 0-201 [place]. 700 Health [place], gestation of 7 Medical PO Box Center 1522, [place], 120, [place], [place], [id number], [place], [place] [id number] tel: , [place]. tel: [phone] [facility] Less than 8 weeks Mar-3 Rahul In Womens gestation of 0-201 [facility] 700 [facility], pregnancyEncounter 7 Medical PO Box for suprvsn of Center 1522, normal , [place], first trimester 120, [place], [place], [id number], [place], [place] [id number] tel: , [place]. tel: [phone] [facility] state, Mar-1 Rahul In Womens incidentalEncounter 6-201 [place]. 700 [facility], for suprvsn of 7 Medical PO Box normal , Center 1522, first trimester8 [place], weeks gestation of 120, [place], [place], , [place], [place] [id number] tel: , [place]. tel: [phone] [facility] Irregular Mar-0 Gibbs In Womens MensesAbnormal Pap, 8-201 [facility]. Health [place], LSILAbnormal Pap, 7 700 PO Box AGUSEncntr screen [place] [id number], for infections w [place], sexl mode of [place]es, transmissEncounter 120, , for test, Tad, result [place], tel:+ positive [phone] state, , [place]. incidental tel: state, incidental [phone] [facility] Encntr screen for Aug-2 Gibbs In Womens infections w sexl 2-201 [place]. Health [place], mode of 6 700 PO Box transmissPap Smear Medical 1522, Screening, [place], CervixHigh risk [place], heterosexual 120, [id number], behavior [place], [place], tel:+ [phone] , [place]. tel: [phone] [facility] Abnormal Pap, Jun- Rahul In Womens LSILAbnormal Pap, - [place]. 700 [facility], LSILEncounter for 6 Medical PO Box test, Center 1522, result negative [place], 120, [place], [place], [id number], [place], [place] [id number] tel: , [place]. 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 [facility] [place], w/o abn 6 700 PO Box findingsEncntr Medical 1522, screen for [place], infections w sexl [place], mode of 120, , transmissEncntr Mishra, screen for [place], tel: infections w sexl [phone] mode of , [place]. transmissPap Smear tel: Screening, Cervix [phone] Lowell Mishra Mar-0 Gibbs In Womens 4-200 [place]. [facility], 8 700 PO Box Medical 1522, [address] [place], 120, [id number], [place], [place], tel:[phone] , [place]. tel: [phone] Family History Family Member Diagnosis Age At Onset Maternal uncle Diabetes mellitus Paternal Grandfather Diabetes mellitus Immunizations Vaccine Date Status Comments Unknown Payers Payer name Insurance type Covered democrat ID [facility] Medicare ALWAYS CI [id number] [facility] [id number] Medica CI [id number] Social History Type Description Quantity Date Captured [...] Order: Radiology Order Ultrasound < 14 wks ([id number]) Ordered Future Order: Lab Order Pap Smear With HPV Reflex If ASCUS Ordered ([id number]) Future Order: Lab Order Pap Smear With HPV Reflex If ASCUS Ordered ([id number]) Future Order: Radiology Order Complete OB Ultrasound > 14 Ordered Weeks ([id number]) Date Type Problem Goal Intervention Status Start [...]
--- OUTSIDE RECORDS SUMMARY | 2017-02-22 11:00 | External Medical Summary | Continuity of Care Document ---
:1985 Author Organization [facility] Address [address] [place], [place] [phone] Phone Care Team Providers Name Role Phone Mitesh Dickinson DO Unavailable Unavailable Allergies, Adverse Reactions, Alerts Substance Reaction Severity Status No Known Drug Allergies Unknown Active Medications Medication Instructions Dosage Effective Dates Status Comments (start - stop) LEVOTHYROXIN 50MCG TAKE ONE TABLET BY - Active TAB MOUTH ONCE DAILY ProAir HFA 90 inhale 2 puff by Not Available - Active mcg/actuation Inhalation route aerosol inhaler every 4 - 6 hours as needed valacyclovir 1 gram take 1 tablet by - Active tablet oral route every day for 5 days 28 mg take 1 tablet by Not Available - Active iron-800 mcg tablet oral route every day Problems Condition Effective Dates (start - stop) Clinical Status Encntr screen for infections w sexl - mode of transmiss state, incidental - Encounter for suprvsn of normal - , first trimester 8 weeks gestation of - Encounter for suprvsn of normal - , third trimester 32 weeks gestation of - Encounter for suprvsn of normal - , third trimester 37 weeks gestation of - Generalized anxiety disorder [...] metab diseases - comp preg, third tri 36 weeks gestation of - Endo, nutritional and metab diseases - comp preg, third tri Encounter for suprvsn of normal - , third trimester 36 weeks gestation of - Endo, nutritional and metab diseases - comp preg, third tri Encounter for suprvsn of normal - , third trimester 28 weeks gestation of - Abnormal Pap, LSIL - Abnormal Pap, LSIL Encounter for suprvsn of normal - , third trimester Encounter for suprvsn of normal , third trimester 30 weeks gestation of - 30 weeks gestation of Abnormal Pap, LSIL Abnormal Pap, LSIL Encounter for test, result - negative 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) - (routine) w/o abn findings [...] second trimester 20 weeks gestation of - Encounter for suprvsn of normal - , second trimester 16 weeks gestation of - Encounter for suprvsn of normal - , second trimester 23 weeks gestation of - Encounter for suprvsn of normal - , second trimester 24 weeks gestation of - Encounter for suprvsn of normal - , third trimester 32 weeks gestation of - Encounter for suprvsn of normal - , third trimester Encounter for suprvsn of normal - , third trimester 34 weeks gestation of - Encounter for screening [...] Practice Location Reason(s) Diagnoses Date Provider Care Team Description For Visit Members Lowell Mishra Encounter for Oct-2 Rahul In Womens suprvsn of normal 5-[address], , third 7 Medical PO Box [email or web address] weeks Center 1522, gestation of [place], 120, [place], [place], [id number], [place], [place] [id number] tel: , [place]. [id number] tel: [phone] Lowell Mishra Encounter for Oct-2 Rahul In Womens suprvsn of normal 0-[address], , third 7 Medical PO Box trimester Center 1522, [place], 120, [place], [place], , [place], [place] [id number] tel: , [place]. tel: [phone] Lowell Barry, nutritional Oct-1 Rahul Referring In Womens and metab 8-201 [place]. 700 Provider: Health PA, diseases comp 7 Medical [place] PO Box preg, third Center Rahul R, 1522, triEncounter for [place], suprvsn of normal 120, Medical [place], , third [facility] [id number], weeks [place], [facility] 120, [place] gestation of [id number] Tad, tel: , [place]. [place] tel:[phone]. [id number] tel:[phone] Lowell Barry, nutritional Oct-1 Rahul In Womens Ultrasound and metab 8-201 [place]. 700 Health [place], diseases comp 7 Medical PO Box preg, third tri36 Center 1522, weeks gestation [place], of 120, [place], [place], [id number], [place], [place] [id number] tel: , [place]. tel: [phone] Lowell Mishra Oct-0 Rahul In Womens 9-201 [place]. 700 Health [place], 7 Medical PO Box Center 1522, [place], 120, [place], [place], [id number], [place], [place] [id number] tel: , [place]. tel: [phone] Lowell Mishra Encounter for Oct-0 Rahul In Womens suprvsn of normal 3-201 [place]. 700 Health [place], , third 7 Medical PO Box [email or web address] weeks Center 1522, gestation of [place], 120, [place], [place], [id number], [place], [place] [id number] tel: , [place]. tel: [phone] Lowell Mishra Encounter for Sep-2 Rahul In Womens suprvsn of normal 2-201 [place]. 700 Health [place], , third 7 Medical PO Box weeks Center 1522, gestation of [place], 120, [place], [place], [id number], [place], [place] [id number] tel: , [place]. tel: [phone] Lowell Mishra Encounter for Sep-1 Rahul In Womens suprvsn of normal 9-201 [place]. 700 Health [place], , third 7 Medical PO Box [email or web address] weeks Center 1522, gestation of [place], 120, [place], [place], [id number], [place], [place] [id number] tel:+ , [place]. tel: [phone] [facility] Sep-1 Rahul In Womens 4-201 [place]. 700 [facility] [place], 7 Medical PO Box Center 1522, [place], 120, [place], [place], , [place], [place] tel:+ , [place]. tel: [phone] Lowell Mishra Abnormal Pap, Sep-0 Rahul In Womens LSILAbnormal Pap, 6-201 [place]. 700 Health PA, LSILEncounter for 7 Medical PO Box suprvsn of normal Center 1522, , third [place], trimesterEncounte 120, [place], r for suprvsn of Mishra, , normal , [place], [place] third [id number] tel:+2 weeks gestation , [place]. of [email or web address] tel:+05-19 weeks gestation [phone] of [facility] Endo, nutritional Aug-2 Rahul In Womens and metab 3-201 [place]. 700 Health PA, diseases comp 7 Medical PO Box preg, third Center 1522, triEncounter for [place], suprvsn of normal 120, [place], , third Tad, , [email or web address] weeks [place], [place] gestation of [id number] tel: , [place]. tel: [phone] Lowell Mishra Encounter for George-2 Rahul In Womens suprvsn of normal 6-201 [place]. 700 Health [place], , second 7 Medical PO Box [email or web address] weeks Center 1522, gestation of [place], 120, [place], [place], [id number], [place], [place] [id number] tel: , [place]. tel: [phone] Lowell Mishra Encounter for George-2 Rahul In Womens suprvsn of normal 0-201 [place]. 700 Health [place], , second 7 Medical PO Box [email or web address] weeks Center 1522, gestation of [place], 120, [place], [place], [id number], [place], [place] [id number] tel:+ , [place]. tel: [phone] [facility] Encounter for George-1 Rahul In Womens suprvsn of normal 2-201 [place]. 700 Health [place], , second 7 Medical PO Box [email or web address] weeks Center 1522, gestation of [place], 120, [place], [place], [id number], [place], [place] [id number] tel:+ , [place]. tel: [phone] [facility] Encounter for Juancarlos-2 Rahul In Womens suprvsn of normal 8-201 [place]. 700 Health [place], , second 7 Medical PO Box weeks Center 1522, gestation of [place], 120, [place], [place], [id number], [place], [place] [id number] tel:+ , [place]. tel: [phone] Lowell Mishra Encounter for Juancarlos-2 Rahul In Womens Ultrasound 8-201 [place]. 700 Health [place], screening of 7 Medical PO Box [email or web address] weeks Center 1522, gestation of [place], 120, [place], [place], [id number], [place], [place] [id number] tel:+ , [place]. tel: [phone] Lowell Mishra Encounter for Juancarlos-0 Rahul In Womens suprvsn of normal 1-201 [place]. 700 Health [place], , second 7 Medical PO Box [email or web address] weeks Center 1522, gestation of [place], 120, [place], [place], [id number], [place], [place] [id number] tel:+ , [place]. tel:[phone] Lowell Mishra Encounter for May-1 Rahul In Womens suprvsn of normal 1-201 [place]. 700 Health [place], , first 7 Medical PO Box [email or web address] weeks Center 1522, gestation of [place], 120, [place], [place], [id number], [place], [place] [id number] tel:+ , [place]. tel: [phone] [facility] Endo, nutritional May-1 Rahul In Womens Ultrasound and metab 1-201 [place]. 700 Health PA, diseases comp 7 Medical PO Box preg, first Center 1522, triEncounter for [place], suprvsn of normal 120, [place], , first Mishra, [id number], weeks [place], [place] gestation of [id number] tel: , [place]. tel: [phone] [facility] Encounter for May-0 Rahul In Womens suprvsn of normal 9-201 [place]. 700 Health PA, , first 7 Medical PO Box [email or web address] weeks Center 1522, gestation of [place], 120, [place], [place], [id number], [place], [place] [id number] tel: , [place]. tel: [phone] [facility] Contact w and Apr-2 Rahul In Womens exposure to 0-201 [place]. 700 Health PA, infect w a sexl 7 Medical PO Box mode of Center 1522, transmissEncounte [place], r for suprvsn of 120, [place], normal , Mishra, , first [id number] [place], [place] weeks gestation [id number] tel: of , [place]. tel: [phone] Lowell Mishra Encounter for Apr-1 Rahul In Womens suprvsn of normal 2-201 [place]. 700 Health [place], , first 7 Medical PO Box trimester9 weeks Center 1522, gestation of [place], 120, [place], [place], [id number], [place], [place] [id number] tel:+ , [place]. tel: [phone] [facility] Generalized Apr-1 Rahul In Womens anxiety disorder9 0-201 [place]. 700 Health [place], weeks gestation 7 Medical PO Box of Center 1522, [place], 120, [place], [place], [id number], [place], [place] [id number] tel: , [place]. tel: [phone] Lowell Mishra Encounter for Mar-3 Rahul In Womens suprvsn of normal 0-201 [place]. 700 Health [place], , first 7 Medical PO Box trimesterLess Center 1522, than 8 weeks [place], gestation of 120, [place], [place], , [place], [place] tel:+ , [place]. tel: [phone] Lowell Mishra state, Mar-1 Rahul In Womens incidentalEncount 6-201 [place]. 700 [facility], er for suprvsn of 7 Medical PO Box normal , Center 1522, first trimester8 [place], weeks gestation 120, [place], of [place], , [place], [place] tel: , [place]. tel: [phone] Lowell Mishra Irregular Mar-0 Gibbs In Womens MensesAbnormal 8-201 [facility]. Health [place], Pap, LSILAbnormal 7 700 PO Box [facility], screen for [facility] [place], infections w sexl [place], mode of 120, , transmissEncounte Mishra, [place] r for [place], tel: test, result positive , [place]. state, tel: incidentalPregnan [phone] t state, incidental [facility] Veliz screen for Aug-2 Gibbs In Womens infections w sexl 2-201 [facility]. Health [place], mode of 6 700 PO Box transmissPap [facility] 1522, [facility] CervixHigh risk [place], heterosexual 120, [id number], behavior [place], [place], tel:[phone] , [place]. tel: [phone] Lowell Mishra Abnormal Pap, Mar-1 Rahul In Womens LSILAbnormal Pap, 1-201 [facility] 700 Health [place], LSILEncounter for 6 Medical PO Box test, Center 1522, result negative [place], 120, [place], [place]ra, [id number], [place], [place] [id number] tel: , [place]. 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 [facility], (routine) w/o abn 6 700 PO Box findingsEncntr Medical 1522, screen for [facility] [place], infections w sexl , [place], mode of 120, [id number], transmissEncntr Mishra, screen for [place], tel: infections w sexl [phone] mode of , [place]. transmissPap tel: Smear Screening, [phone] Cervix [facility] Mar-0 Gibbs In Womens 4-200 [facility]. [facility], 8 700 PO Box Medical 1522, Center [place], [place], 120, [id number], [place], [place], tel: [phone] , [place]. tel: [phone] Family History Family Member Diagnosis Age At Onset Maternal uncle Diabetes mellitus Paternal Grandfather Diabetes mellitus Immunizations Vaccine Date Status Comments Influenza, injectable, completed Source: New Immunization Record quadrivalent, preservative free, 3 yrs or older Tdap completed Source: New Immunization Record Tdap ordered Source: New Immunization Record Payers Payer name Insurance type Covered libertarian ID Authorization(s) [employer] Medicare ALWAYS CI [id number] PRIM [employer] [place] [employer] - Medicaid [place] [id number] Medica CI [id number] [employer]) Medicare ALWAYS CI [id number] PRIM [employer] [place] [employer] - Medicaid MC [id number] [employer] Medicare ALWAYS CI [id number] PRIM [employer] [place] [employer] - Medicaid MC [id number] Social History Type Description Quantity Date Captured Unknown Vital Signs Date / Height Weight BMI Pulse Blood Temperature Respiratory Body Head BMI Time: Rate Pressure Rate Surface Circumference percentile Area Unknown Chief Complaint And Reason For Visit Unknown Chief Complaint And Reason For Visit Reason For Referral Reason For Referral Unknown Plan Of Care Date Type Action Status Appointment Kristal Dupree BOOKED Appointment Kristal Dupree [place] [facility] [place], BOOKED PPTL Appointment Kristal Dupree [facility] [place]/S, PPTL. BOOKED MB Assist Unknown Immunization Tdap ordered Future Order: Radiology Order Ultrasound < 14 wks ([id number]) Ordered Future Order: Radiology Order Ultrasound OB Follow-up ([id number]) Ordered Future Order: Lab Order Pap Smear With HPV Reflex If ASCUS Ordered (WPMPap1) Future Order: Lab Order Pap Smear With HPV Reflex If ASCUS Ordered (WPMPap1) Future Order: Radiology Order Complete OB Ultrasound > 14 Ordered Weeks ([id number]) Date Type Problem Goal Intervention Status Start [...]
--- OUTSIDE RECORDS SUMMARY | 2017-02-22 11:00 | External Medical Summary | Continuity of Care Document ---
:1985 Author Organization [facility] Address [address] [place], [place] [phone] Phone Care Team Providers Name Role Phone [...] second trimester 23 weeks gestation of - state, incidental - [...] for test, result - negative Encntr for crna exam (general) - (routine) w/o abn findings [...] gestation of [place] Montes, 120, [place], [place], [id number], [place], [place] [id number] tel:+ , [place]. tel: [phone] Lowell Mishra Encounter for George-2 Rahul In Womens suprvsn of normal 0-201 [place]. 700 [facility] [place], , second 7 Medical PO Box [email or web address] weeks Center 1522, gestation of [place] Montes, 120, [place], [place], , [place], [place] [id number] tel:+ , [place]. tel: [phone] Lowell Mishra Encounter for George-1 Rahul In Womens suprvsn of normal 2-201 [place]. 700 [facility] [place], , second 7 Medical PO Box [email or web address] weeks Center 1522, gestation of [place], 120, [place], [place], [id number], [place], [place] [id number] tel:+ , [place]. tel: [phone] Lowell Mishra Encounter for Juancarlos-2 Rahul In Womens suprvsn of normal 8-201 [place]. 700 [facility] [place], , second 7 Medical PO Box [email or web address] weeks Center 1522, gestation of [place] Montes, 120, [place], [place], , [place], [place] [id number] tel:+ , [place]. tel: [phone] Lowell Mishra Encounter for Juancarlos-2 Rahul In Womens Ultrasound screening 8-201 [place]. 700 [facility] [place], of [email or web address] weeks 7 Medical PO Box gestation of Center 1522, [place], 120, [place], [place], , [place], [place] [id number] tel:+ , [place]. tel: [phone] Lowell Mishra Encounter for Juancarlos-0 Rahul In Womens suprvsn of normal 1-201 [place]. 700 [facility] [place], , second 7 Medical PO Box [email or web address] weeks Center 1522, gestation of [place]es, 120, [place], [place], [id number], [place], [place] [id number] tel:+ , [place]. tel:[phone] [facility] Encounter for May-1 Rahul In Womens suprvsn of normal 1-201 [place]. 700 [facility] [place], , first 7 Medical PO Box [email or web address] weeks Center 1522, gestation of [place] Montes, 120, [place], [place], [id number], [place], [place] [id number] tel:+ , [place]. tel: [phone] [facility] Endo, nutritional May-1 Rahul In Womens Ultrasound and metab diseases 1-201 [place]. 700 [facility] [place], comp preg, first 7 Medical PO Box triEncounter for Center 1522, suprvsn of normal [place]es, , first 120, [place], [email or web address] weeks Tad, , gestation of [place], [place] [id number] tel:+ , [place]. tel: [phone] Lowell Mishra Encounter for May-0 Rahul In Womens suprvsn of normal 9-201 [place]. 700 [facility] [place], , first 7 Medical PO Box [email or web address] weeks Center 1522, gestation of [place] Montes, 120, [place], [place], , [place], [place] [id number] tel:+ , [place]. tel: [phone] [facility] Contact w and Apr-2 Rahul In Womens exposure to infect 0-201 [place]. 700 [facility] [place], w a sexl mode of 7 Medical PO [facility], for suprvsn of [place]aper Montes, normal , 120, [place], first [id number] Tad, [id number], weeks gestation of [place], [place] [id number] tel:+ , [place]. tel:[phone] Lowell Mishra 9 weeks gestation Apr-1 Rahul In Womens of 2-201 [place]. 700 [facility] [place], pregnancyEncounter 7 Medical PO Box for suprvsn of [place] 1522, normal , [place] Montes, first trimester 120, [place], [place], [id number], [place], [place] tel: , [place]. tel: [phone] Lowell Mishra Generalized anxiety Apr-1 Rahul In Womens disorder9 weeks 0-201 [place]. [facility] [place], gestation of 7 Medical PO Box Center 1522, [place], 120, [place], [place]ra, [id number], [place], [place] tel: , [place]. tel: [phone] Lowell Mishra Encounter for Mar-3 Rahul In Womens suprvsn of normal 0-201 [place]. 700 [facility], , first 7 Medical PO Box trimesterLess than Center 1522, 8 weeks gestation [place] Montes, of 120, [place], [place], , [place], [place] tel: , [place]. tel: [phone] Lowell Mishra state, Mar-1 Rahul In Womens incidentalEncounter 6-[address], for suprvsn of 7 Medical PO Box normal , Center 1522, first trimester8 [place] Montes, weeks gestation of 120, [place], [place], , [place], [place] tel: , [place]. tel: [phone] Lowell Mishra Irregular Mar-0 Gibbs In Womens MensesAbnormal Pap, 8-201 [facility]. [facility] [place], LSILAbnormal Pap, 7 700 PO Box AGUSEncntr screen [facility] 1522, for infections w [facility], sexl mode of [place] Montes, transmissEncounter 120, , for test, Mishra, [place] result [place], tel: positive [phone] [facility], , [place]. incidental tel: state, incidental [phone] Lowell Mishra Encntr screen for Aug-2 Gibbs In Womens infections w sexl 2-201 [facility]. Health [place], mode of 6 700 PO Box transmissPap Smear [facility] 1522, [facility] CervixHigh risk [place] Montes, heterosexual 120, , behavior [place], [place], tel:[phone] , [place]. tel: [phone] Lowell Mishra Abnormal Pap, Mar-1 Rahul In Womens LSILAbnormal Pap, 1-201 [place]. 700 [facility], LSILEncounter for 6 Medical PO Box test, Center 1522, result negative [place], 120, [place], [place]ra, [id number], [place], [place] [id number] tel: , [place]. tel: [phone] Lowell Mishra Encntr for crna exam Mar-0 Gibbs In Womens (general) (routine) 2-201 Mary [facility]. [facility], w/o abn 6 700 PO Box findingsEncntr Medical 1522, screen for Center [place], infections w sexl [place] Montes, mode of 120, [id number], transmissEncntr Mishra, screen for [place], tel: infections w sexl [phone] mode of , [place]. transmissPap Smear tel: Screening, Cervix [phone] Lowell Mishra Mar-0 Gibbs In Womens 4-200 Mary Beth. [facility] [place], 8 700 PO Box Medical 1522, Center [place], [place] Montes, 120, [id number], [place], [place], tel: [phone] 196790 , [place]. tel: [phone] Family History Family Member Diagnosis Age At Onset Maternal uncle Diabetes mellitus Paternal Grandfather Diabetes mellitus Immunizations Vaccine Date Status Comments Unknown Payers Payer name Insurance type Covered constitution party ID Authorization(s) [facility] Medicare ALWAYS CI [id number] PRIM [employer] - Medicaid MC [id number] Medica CI [id number] Social History Type Description Quantity Date Captured Alcohol Use Details No Caffeine Use Details Unknown Tobacco Use Status Unknown Smoking Status Never smoker Vital Signs Date / Height Weight BMI Pulse Blood Temperature Respiratory Body Head BMI Time: Rate Pressure Rate Surface Circumference percentile Area 170.10 28.3 123/74 -2017 lbs 0 mm[Hg] 1:47 kg/m PM eter (2) George-20 28.6 -2017 0 1:47 kg/m PM eter (2) Chief Complaint And Reason For Visit Unknown Chief Complaint And Reason For Visit Reason For Referral Reason For Referral Unknown Plan Of Care Date Type Action Status Appointment Ricky Dupree BOOKED Future Order: Radiology Order Ultrasound < 14 wks ([id number]) Ordered Future Order: Lab Order Pap Smear With HPV Reflex If ASCUS Ordered ([id number]) Future Order: Lab Order Pap Smear With HPV Reflex If ASCUS Ordered (WPMPap1) Future Order: Radiology Order Complete OB Ultrasound > 14 Ordered Weeks ([id number]) Date Type Problem Goal Intervention Status Start [...]
--- OUTSIDE RECORDS SUMMARY | 2017-02-22 11:00 | External Medical Summary | Continuity of Care Document ---
:1985 Author Organization [facility] Address [address] [place], [place] [phone] Phone Care Team Providers Name Role Phone [...] for test, result - negative Encntr for paediatric thoracic physician exam (general) - (routine) w/o abn findings [...] Rahul In Womens suprvsn of normal 5-[address], , third 7 Medical PO Box [email or web address] weeks Center 1522, gestation of [place] Montes, 120, [place], [place], [id number], [place], [place] [id number] tel: , [place]. [phone] tel: [phone] Lowell Mishra Encounter for Oct-2 Rahul In Womens suprvsn of normal 0-[address], , third 7 Medical PO Box trimester Center 1522, [place], 120, [place], [place], , [place], [place] [id number] tel: , [place]. tel: [phone] Lowell Barry, nutritional Oct-1 Rahul Referring In Womens and metab 8-201 [place]. 700 Provider: Health [place], diseases comp 7 Medical [place] PO Box preg, third Center Rahul R, 1522, triEncounter for [place] Montes, suprvsn of normal 120, Medical [place], , third [facility] [id number], [email or web address] weeks [place], [facility] 120, [place] gestation of [id number] Tad, tel: , [place]. [place] tel:[phone]. [id number] tel:[phone] Lowell Barry, nutritional Oct-1 Rahul In Womens Ultrasound and metab 8-201 [place]. 700 [facility] [place], diseases comp 7 Medical PO Box preg, third tri36 Center 1522, weeks gestation [place]es, of 120, [place], [place], [id number], [place], [place] [id number] tel: , [place]. tel: [phone] Lowell Mishra Oct-1 Rahul In Womens 1-201 [place]. 700 Health [place], 7 Medical PO Box Center 1522, [place] Montes, 120, [place], [place], [id number], [place], [place] [id number] tel: , [place]. tel: [phone] Lowell Mishra Encounter for Oct-0 Rahul In Womens suprvsn of normal 3-201 [place]. 700 [facility] [place], , third 7 Medical PO Box [email or web address] weeks Center 1522, gestation of [place] Montes, 120, [place], [place], [id number], [place], [place] [id number] tel: , [place]. tel: [phone] Lowell Mishra Encounter for Sep-2 Rahul In Womens suprvsn of normal 2-201 [place]. 700 [facility] [place], , third 7 Medical PO Box weeks Center 1522, gestation of [place] Montes, 120, [place], [place], [id number], [place], [place] [id number] tel: , [place]. tel: [phone] Lowell Mishra Encounter for Sep-1 Rahul In Womens suprvsn of normal 9-201 [place]. 700 [facility] [place], , third 7 Medical PO Box [email or web address] weeks Center 1522, gestation of [place] Montes, 120, [place], [place], [id number], [place], [place] [id number] tel:+ , [place]. tel: [phone] [facility] Sep-1 Rahul In Womens 4-201 [place]. 700 [facility] [place], 7 Medical PO Box Center 1522, [place], 120, [place], [place], , [place], [place] tel:+ , [place]. tel: [phone] Lowell Mishra Abnormal Pap, Sep-0 Rahul In Womens LSILAbnormal Pap, 6-201 [place]. 700 [facility] [place], LSILEncounter for 7 Medical PO Box suprvsn of normal Center 1522, , third [place] Montes, trimesterEncounte 120, [place], r for suprvsn of Mishra, , normal , [place], [place] third [email or web address] tel:+2 weeks gestation , [place]. of [email or web address] tel:+05-19 weeks gestation [phone] of [facility] Endo, nutritional Aug-2 Rahul In Womens and metab 3-201 [place]. 700 [facility] [place], diseases comp 7 Medical PO Box preg, third Center 1522, triEncounter for [place]es, suprvsn of normal 120, [place], , third Tad, , [email or web address] weeks [place], [place] gestation of [id number] tel: , [place]. tel: [phone] Lowell Mishra Encounter for George-2 Rahul In Womens suprvsn of normal 6-201 [place]. 700 [facility], , second 7 Medical PO Box [email or web address] weeks Center 1522, gestation of [place] Montes, 120, [place], [place]ra, [id number], [place], [place] [id number] tel: , [place]. tel: [phone] Lowell Mishra Encounter for George-2 Rahul In Womens suprvsn of normal 0-201 [place]. 700 [facility], , second 7 Medical PO Box [email or web address] weeks Center 1522, gestation of [place] Montes, 120, [place], [place], [id number], [place], [place] [id number] tel:+ , [place]. tel: [phone] [facility] Encounter for George-1 Rahul In Womens suprvsn of normal 2-201 [place]. 700 [facility], , second 7 Medical PO Box [email or web address] weeks Center 1522, gestation of [place] Montes, 120, [place], [place], [id number], [place], [place] [id number] tel:+ , [place]. tel: [phone] [facility] Encounter for Juancarlos-2 Rahul In Womens suprvsn of normal 8-201 [place]. 700 [facility] [place], , second 7 Medical PO Box [email or web address] weeks Center 1522, gestation of [place] Montes, 120, [place], [place], [id number], [place], [place] [id number] tel:+ , [place]. tel: [phone] Lowell Mishra Encounter for Juancarlos-2 Rahul In Womens Ultrasound 8-201 [place]. 700 [facility] [place], screening of 7 Medical PO Box [email or web address] weeks Center 1522, gestation of [place] Montes, 120, [place], [place], [id number], [place], [place] [id number] tel:+ , [place]. tel: [phone] Lowell Mishra Encounter for Juancarlos-0 Rahul In Womens suprvsn of normal 1-201 [place]. 700 [facility], , second 7 Medical PO Box [email or web address] weeks Center 1522, gestation of [place] Montes, 120, [place], [place], [id number], [place], [place] [id number] tel:+ , [place]. tel:[phone] Lowell Mishra Encounter for May-1 Rahul In Womens suprvsn of normal 1-201 [place]. 700 [facility], , first 7 Medical PO Box [email or web address] weeks Center 1522, gestation of [place] Montes, 120, [place], [place], [id number], [place], [place] [id number] tel:+ , [place]. tel: [phone] [facility] Endo, nutritional May-1 Rahul In Womens Ultrasound and metab 1-201 [place]. 700 [facility] [place], diseases comp 7 Medical PO Box preg, first Center 1522, triEncounter for [place] Montes, suprvsn of normal 120, [place], , first Mishra, [id number], [email or web address] weeks [place], [place] gestation of [id number] tel: , [place]. tel: [phone] [facility] Encounter for May-0 Rahul In Womens suprvsn of normal 9-201 [place]. 700 [facility], , first 7 Medical PO Box [email or web address] weeks Center 1522, gestation of [place] Montes, 120, [place], [place], [id number], [place], [place] [id number] tel: , [place]. tel: [phone] [facility] Contact w and Apr-2 Rahul In Womens exposure to 0-201 [place]. 700 [facility] [place], infect w a sexl 7 Medical PO Box mode of Center 1522, transmissEncounte [place]es, r for suprvsn of 120, [place], normal , Mishra, , first [email or web address] [place], [place] weeks gestation [id number] tel: of , [place]. tel: [phone] Lowell Mishra Encounter for Apr-1 Rahul In Womens suprvsn of normal 2-201 [place]. 700 [facility], , first 7 Medical PO Box trimester9 weeks Center 1522, gestation of [place] Montes, 120, [place], [place], [id number], [place], [place] [id number] tel:+ , [place]. tel: [phone] [facility] Generalized Apr-1 Rahul In Womens anxiety disorder9 0-201 [place]. 700 [facility] [place], weeks gestation 7 Medical PO Box of Center 1522, [place] Mont[place], 120, [place], Mishra, [id number], [place], [place] [id number] tel: , [place]. tel: [phone] Lowell Mishra Encounter for Mar-3 Rahul In Womens suprvsn of normal 0-201 [place]. 700 [facility] [place], , first 7 Medical PO Box trimesterLess Center 1522, than 8 weeks [place]es, gestation of 120, [place], [place], , [place], [place] tel:+ , [place]. tel: [phone] Lowell Mishra state, Mar-1 Rahul In Womens incidentalEncount 6-201 [place]. 700 [facility] er for suprvsn of 7 Medical PO Box normal , Center 1522, first trimester8 [place] Montes, weeks gestation 120, [place], of [place], , [place], [place] tel: , [place]. tel: [phone] Lowell Mishra Irregular Mar-0 Gibbs In Womens MensesAbnormal 8-201 [facility]. Health [place], Pap, LSILAbnormal 7 700 PO Box Pap, [facility], screen for [facility] [place], infections w sexl [place] Montes, mode of 120, , transmissEncounte Mishra, [place] r for [place], tel: test, result positive , [place]. state, tel: incidentalPregnan [id number] t state, incidental [facility] Veliz screen for Aug-2 Gibbs In Womens infections w sexl 2-201 [facility]. Health [place], mode of 6 700 PO Box transmissPap [facility] 1522, Smear Screening, [facility], CervixHigh risk [place] Montes, heterosexual 120, [id number], behavior Mishra, [place], tel:[phone] , [place]. tel: [phone] Lowell Mishra Abnormal Pap, Mar-1 Rahul In Womens LSILAbnormal Pap, 1-201 [facility] 700 Health [place], LSILEncounter for 6 Medical PO Box test, Center 1522, result negative [place] Mont[place], 120, [place], Mishra, [id number], [place], [place] [id number] tel: , [place]. tel: [phone] Lowell Mishra Encntr for paediatric thoracic physician Mar-0 Gibbs In Womens exam (general) 2-201 Mary Beth. [facility] [place], (routine) w/o abn 6 700 PO Box findingsEncntr Medical 1522, screen for [facility] [place], infections w sexl , [place], mode of 120, [id number], transmissEncntr Mishra, screen for [place], tel: infections w sexl [phone] mode of , [place]. transmissPap tel: Smear Screening, [phone] Cervix [facility] Mar-0 Gibbs In Womens 4-200 Mary Beth. WiN [place], 8 700 PO Box Medical 1522, Center [place], [place] Montes, 120, [id number], [place], [place], tel: [phone] , [place]. tel: [phone] Family History Family Member Diagnosis Age At Onset Maternal uncle Diabetes mellitus Paternal Grandfather Diabetes mellitus Immunizations Vaccine Date Status Comments Influenza, injectable, completed Source: New Immunization Record quadrivalent, preservative free, 3 yrs or older Tdap completed Source: New Immunization Record Tdap ordered Source: New Immunization Record Payers Payer name Insurance type Covered green party ID Authorization(s) [employer] ([employer]) Medicare ALWAYS CI [id number] PRIM [employer] [place] [employer] - Medicaid MC [id number] Medica CI [id number] [employer] ([employer]vantra) Medicare ALWAYS CI [id number] PRIM [employer] - Medicaid MC [id number] [employer] ([employer]) Medicare ALWAYS CI [id number] PRIM [employer] - Medicaid [place] [id number] Social History Type Description Quantity Date Captured [...] Kristal Dupree BOOKED Appointment Kristal Dupree - [facility] [place] - Primary C/S, BOOKED PPTL Appointment Kristal Dupree [facility] [place] Primary C/S, PPTL. BOOKED MB Assist Unknown Immunization Tdap ordered Future Order: Radiology Order Ultrasound < 14 wks ([id number]) Ordered Future Order: Radiology Order Ultrasound OB Follow-up ([id number]) Ordered Future Order: Lab Order Pap Smear With HPV Reflex If ASCUS Ordered (WPMPap1) Future Order: Lab Order Pap Smear With HPV Reflex If ASCUS Ordered (WPMPap1) Future Order: Radiology Order Complete OB Ultrasound > 14 Ordered Weeks ([id number]) Date Type Problem Goal Intervention Status Start [...]
--- OUTSIDE RECORDS SUMMARY | 2017-02-22 11:00 | External Medical Summary | Continuity of Care Document ---
:1985 Author Organization [facility] Address [address] [place], [place] [id number] Phone Care Team Providers Name Role Phone Mitesh Dickinson DO Unavailable Unavailable Allergies, Adverse Reactions, Alerts Substance Reaction Severity Status No Known Drug Allergies Unknown Active Medications Medication Instructions Dosage Effective Status Comments Dates (start - stop) ProAir HFA 90 inhale 2 puff by Not Available - Active mcg/actuation Inhalation route aerosol inhaler every 4 - 6 hours as needed valacyclovir 1 take 1 tablet by - [...] - mode of transmiss state, incidental - 8 weeks gestation of - Encounter for suprvsn of normal - , first trimester Encounter for suprvsn of normal - , second trimester 20 weeks gestation of - Encounter for suprvsn of normal - , third trimester 32 weeks gestation of - Generalized anxiety disorder - 9 weeks gestation of - Irregular Menses Abnormal Pap, LSIL - Abnormal Pap, ALEXANDER - Encntr screen for infections w sexl mode of transmiss Encounter for test, result - positive state, incidental state, incidental Endo, nutritional and metab diseases - comp preg, first tri 13 weeks gestation of - Encounter for suprvsn of normal - , first trimester Endo, nutritional and metab diseases - comp preg, third tri 28 weeks gestation of - Encounter for suprvsn of normal - , third trimester Abnormal Pap, LSIL - Abnormal Pap, LSIL 30 weeks gestation of - 30 weeks gestation of Encounter for suprvsn of normal - , third trimester Encounter for suprvsn of normal , third trimester Abnormal Pap, LSIL Abnormal Pap, LSIL Encounter for test, result - negative Encntr for vp lab exam (general) - (routine) w/o abn findings [...] first trimester 9 weeks gestation of - 13 weeks gestation of - Encounter for suprvsn of normal - , first trimester 16 weeks gestation of - Encounter for suprvsn of normal - , second trimester 20 weeks gestation of - Encounter for screening of - mother 22 weeks gestation of - Encounter for [...] third trimester 34 weeks gestation of - IUD Surveillance - [...] Visit Team Members Lowell Mishra Encounter for Oct-0 Rahul In Womens suprvsn of normal 3-201 [place]. [place], , third 7 Medical PO Box [email or web address] weeks Center 1522, gestation of [place], 120, [place], [place], , [place], [place] [id number] tel:+ , [place]. tel: [phone] Lowell Mishra Encounter for Sep-2 Rahul In Womens suprvsn of normal 2-201 [place]. [place], , third 7 Medical PO Box [email or web address] weeks Center 1522, gestation of [place], 120, [place], [place], [id number], [place], [place] [id number] tel: , [place]. tel: [phone] Lowell Mishra Encounter for Sep-1 Rahul In Womens suprvsn of normal 9-201 [place]. [place], , third 7 Medical PO Box [email or web address] weeks Center 1522, gestation of [place], 120, [place], [place], , [place], [place] [id number] tel: , [place]. tel: [phone] Lowell Mishra Sep-1 Rahul In Womens 4-201 [place]. 700 [facility] [place], 7 Medical PO Box Center 1522, [place], 120, [place], [place], [id number], [place], [place] [id number] tel:+ , [place]. tel: [phone] Lowell Mishra Abnormal Pap, Sep-0 Rahul In Womens LSILAbnormal Pap, 6-201 [place]. 700 [facility] [place], [email or web address] weeks 7 Medical PO Box gestation of Center 1522, [email or web address] weeks [place], gestation of 120, [place], pregnancyEncounter [place], , for suprvsn of [place], [place] normal , [id number] tel:+ third , [place]. trimesterEncounter tel: for suprvsn of [phone] normal , third trimester [facility] Endo, nutritional Aug-2 Rahul In Womens and metab diseases 3-201 [place]. 700 [facility] [place], comp preg, third 7 Medical PO Box tri28 weeks Center 1522, gestation of [place], pregnancyEncounter 120, [place], for suprvsn of Tad, [id number], normal , [place], [place] third trimester tel:+ , [place]. tel: [phone] Lowell Mishra Encounter for George-2 Rahul In Womens suprvsn of normal 6-201 [place]. 700 [facility] [place], , second 7 Medical PO Box [email or web address] weeks Center 1522, gestation of [place], 120, [place], [place], [id number], [place], [place] [id number] tel: , [place]. tel: [phone] Lowell Mishra Encounter for George-2 Rahul In Womens suprvsn of normal 0-201 [place]. 700 [facility] [place], , second 7 Medical PO Box [email or web address] weeks Center 1522, gestation of [place], 120, [place], [place], [id number], [place], [place] [id number] tel: , [place]. tel: [phone] Lowell Mishra 22 weeks gestation George-1 Rahul In Womens of 2-201 [place]. 700 [facility] [place], pregnancyEncounter 7 Medical PO Box for suprvsn of Center 1522, normal , [place], second trimester 120, [place], [place], [id number], [place], [place] [id number] tel:+ , [place]. tel: [phone] [facility] Encounter for Juancarlos-2 Rahul In Womens suprvsn of normal 8-201 [place]. 700 [facility] [place], , second 7 Medical PO Box [email or web address] weeks Center 1522, gestation of [place], 120, [place], [place], [id number], [place], [place] [id number] tel:+ , [place]. tel: [phone] [facility] 20 weeks gestation Juancarlos-2 Rahul In Womens Ultrasound of [place]. 700 [facility] [place], pregnancyEncounter 7 Medical PO Box for Center 1522, screening of mother [place], 120, [place], [place], , [place], [place] [id number] tel: , [place]. tel: [phone] Lowell Mishra 16 weeks gestation Juancarlos-0 Rahul In Womens of [place]. 700 [place], pregnancyEncounter 7 Medical PO Box for suprvsn of Center 1522, normal , [place], second trimester 120, [place], [place], [id number], [place], [place] [id number] tel:+ , [place]. tel: [phone] Lowell Mishra 13 weeks gestation May-1 Rahul In Womens of [place]. 700 [facility] [place], pregnancyEncounter 7 Medical PO Box for suprvsn of Center 1522, normal , [place], first trimester 120, [place], [place], [id number], [place], [place] [id number] tel:+ , [place]. tel: [phone] [facility] Endo, nutritional May-1 Rahul In Womens Ultrasound and metab diseases [place]. 700 [facility] [place], comp preg, first 7 Medical PO Box tri13 weeks Center 1522, gestation of [place], pregnancyEncount 120, [place], for suprvsn of Mishra, [id number], normal , [place], [place] first trimester tel:+ , [place]. tel: [phone] [facility] Encounter for May-0 Rahul In Womens suprvsn of normal 9-201 [place]. 700 [facility] [place], , first 7 Medical PO Box [email or web address] weeks Center 1522, gestation of [place], 120, [place], [place], [id number], [place], [place] [id number] tel:+ , [place]. tel: [phone] [facility] Contact w and Apr-2 Rahul In Womens exposure to infect 0-201 [place]. 700 [facility] [place], w a sexl mode of 7 Medical PO Box [facility] Center 1522, for suprvsn of [place], normal , 120, [place], first [email or web address] [place]ad, , weeks gestation of [place], [place] tel:+ , [place]. tel: [phone] Lowell Mishra Encounter for Apr-1 Rahul In Womens suprvsn of normal 2-201 [place]. 700 [facility] [place], , first 7 Medical PO Box trimester9 weeks Center 1522, gestation of [place], 120, [place], [place], , [place], [place] [id number] tel:+ , [place]. tel:[phone] Lowell Mishra Generalized anxiety Apr-1 Rahul In Womens disorder9 weeks 0-201 [place]. 700 [facility] [place], gestation of 7 Medical PO Box Center 1522, [place], 120, [place], [place], , [place], [place] [id number] tel:+ , [place]. tel: [phone] Lowell Mishra Encounter for Mar-3 Rahul In Womens suprvsn of normal 0-201 [place]. 700 [facility] [place], , first 7 Medical PO Box trimesterLess than Center 1522, 8 weeks gestation [place], of 120, [place], [place], [id number], [place], [place] [id number] tel:+ , [place]. tel: [phone] Lowell Mishra state, Mar-1 Rahul In Womens incidental8 weeks 6-201 [place]. 700 [place], gestation of 7 Medical PO Box pregnancyEncounter Center 1522, for suprvsn of [place], normal , 120, [place], first trimester Mishra, [id number], [place], [place] [id number] tel:+ , [place]. tel: [phone] [facility] Irregular Mar-0 Gibbs In Womens MensesAbnormal Pap, 8-201 [place]. [facility] [place], LSILAbnormal Pap, 7 700 PO Box AGUSEncntr screen Medical 1522, for infections w Center [place], sexl mode of [place], transmissEncounter 120, , for test, Mishra, result [place], tel: positive [phone] state, , [place]. incidental tel: state, incidental [phone] [facility] Enckishorer screen for Aug-2 Gibbs In Womens infections w sexl 2-201 [place]. [facility] [place], mode of 6 700 PO Box transmissPap Smear [facility] 1522, Screening, [place], CervixHigh risk [place], heterosexual 120, [id number], behavior [place]ish[place], [place], tel:[phone] , [place]. tel: [phone] Lowell Mishra Abnormal Pap, Mar-1 Rahul In Womens LSILAbnormal Pap, 1-201 [place]. 700 Health [place], LSILEncounter for 6 Medical PO Box test, Center 1522, result negative [place], 120, [place], Mishra, , [place], [place] [id number] tel: , [place]. tel: [phone] [facility] Veliz for vp lab exam Mar-0 Gibbs In Womens (general) (routine) 2-201 [place]. [facility] [place], w/o abn 6 700 PO Box findingsEncntr [facility] 1522, screen for Center [place], infections w sexl [place], mode of 120, [id number], transmissEncntr Mishra, screen for [place], tel:[phone] infections w sexl [id number] mode of , [place]. transmissPap Smear tel: Screening, Cervix [phone] [facility] Jun-0 Gibbs In Womens 4-200 [facility], 8 700 PO [facility] 15[address], [address] Sanam, [place], 120, [id number], [place], [place], tel: [phone] , [place]. tel: [phone] Family History Family Member Diagnosis Age At Onset Maternal uncle Diabetes mellitus Paternal Grandfather Diabetes mellitus Immunizations Vaccine Date Status Comments Unknown Payers Payer name Insurance type Covered democrat ID Authorization(s) [employer] (Advantra) Medicare ALWAYS CI [id number] PRIM [facility] Medicaid [id number] Medica CI [id number] Social History Type Description Quantity Date Captured [...] Appointment Kristal Dupree BOOKED Appointment Kristal Dupree BOOKED Future Order: Radiology Order Ultrasound < 14 wks ([id number]) Ordered Future Order: Lab Order Pap Smear With HPV Reflex If ASCUS Ordered ([id number]) Future Order: Lab Order Pap Smear With HPV Reflex If ASCUS Ordered (WPMPap1) Future Order: Radiology Order Complete OB Ultrasound > 14 Ordered Weeks ([id number]) Date Type Problem Goal Intervention Status Start [...]
--- OUTSIDE RECORDS SUMMARY | 2017-02-22 11:00 | External Medical Summary ---
:1985 Author Organization [employer] Care Team Providers Name Role Phone Mitesh Dickinson Provider Role Unavailable Allergies No Known Allergies Problems Problem Type Condition Code Onset Dates Condition Status Problem Hyperlipemia 272.4 Active Medications Medication Code System Code Instructions Start Date End Date Status Dosage alprazolam [facility] 27838 0.25 mg orally 2 August 03, 1 tab(s) times a day as 2015 needed for anxiety Results No Known Results Summary Purpose eClinicalWorks Submission
--- OUTSIDE RECORDS SUMMARY | 2017-02-22 11:00 | External Medical Summary ---
:1986 Author Organization [employer] Care Team Providers Name Role Phone Mitesh Dickinson Provider Role Unavailable Allergies No Known Allergies Problems Problem Type Condition ICD-9 Code Onset Dates Condition Status Problem Hyperlipemia 272.4 Active Medications Medication Code System Code Instructions Start Date End Date Status Dosage alprazolam [facility] 10605 0.25 mg orally 2 May 22, 2014 1 tab(s) times a day as needed for anxiety Results No Known Results Summary Purpose eClinicalWorks Submission
--- OUTSIDE RECORDS SUMMARY | 2017-02-22 11:00 | External Medical Summary ---
:1986 Author Organization [employer] Care Team Providers Name Role Phone Mitesh Dickinson Provider Role Unavailable Allergies No Known Allergies Problems Problem Type Condition Code Onset Dates Condition Status Problem Hyperlipemia 272.4 Active Medications No Known Medications Results No Known Results Summary Purpose [employer]ClinicalWorks Submission
--- OUTSIDE RECORDS SUMMARY | 2017-02-22 11:01 | External Medical Summary | Continuity of Care Document ---
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 700 Health [place], , third 7 Medical PO Box trimester Center 1522, [place], [facility], MATad, [id number], [place], [place] [id number] tel:[phone] , [place]. [id number] tel: [phone] Lowell Mishra Endo, nutritional Oct-1 Rahul Referring In Womens and metab 8-201 [place]. 700 Provider: Health [place], diseases comp 7 Medical [place] PO Box preg, third Center Rahul R, 1522, triEncounter for [place], suprvsn of normal 120, Medical [place], , third [place] [id number], [email or web address] weeks [place] 120, [place] gestation of [id number] T[place], tel: , [place]. [place], tel:[phone]. [id number] tel:[phone] [facility] Endo, nutritional Oct-1 Rahul In Womens Ultrasound and metab 8-201 [place]. 700 Health [place], diseases comp 7 Medical PO Box preg, third tri36 Center 1522, weeks gestation [place], of 120, [place], [place], , [place], [place] [id number] tel: , [place]. tel: [phone] [facility] Encounter for Oct-0 Rahul In Womens suprvsn of normal 3-201 [place]. 700 [facility] [place], , third 7 Medical PO Box [email or web address] weeks Center 1522, gestation of [place], 120, [place], [place], [id number], [place], [place] [id number] tel: , [place]. tel: [phone] Lowell Mishra Encounter for Sep-2 Rahul In Womens suprvsn of normal 2-201 [place]. 700 [facility] [place], , third 7 Medical PO Box [email or web address] weeks Center 1522, gestation of [place], 120, [place], [place], , [place], [place] [id number] tel: , [place]. tel: [phone] Lowell Mishra Encounter for Sep-1 Rahul In Womens suprvsn of normal 9-201 [place]. 700 [facility] [place], , third 7 Medical PO Box [email or web address] weeks Center 1522, gestation of [place], 120, [place], [place], , [place], [place] [id number] tel: , [place]. tel: [phone] Lowell Mishra Sep-1 Rahul In Womens 4-201 [place]. 700 [facility] [place], 7 Medical PO Box Center 1522, [place], 120, [place], [place], , [place], [place] [id number] tel: , [place]. tel: [phone] Lowell Mishra Abnormal Pap, Sep-0 Rahul In Womens LSILAbnormal Pap, 6-201 [place]. 700 Health [place], LSILEncounter for 7 Medical PO Box suprvsn of normal Center 1522, , third [place], trimesterEncounte 120, [place], r for suprvsn of Mishra, [id number], normal , [place], [place] third [id number] tel:[phone] weeks gestation , [place]. of [email or web address] tel:+- weeks gestation [phone] of [facility] Endo, nutritional Aug-2 Rahul In Womens and metab 3-201 [place]. 700 Health [place], diseases comp 7 Medical PO Box preg, third Center 1522, triEncounter for [place], suprvsn of normal 120, [place], , third Mishra, , weeks [place], [place] gestation of [id number] tel:+ , [place]. tel:[phone] Lowell Mishra Encounter for George-2 Rahul In Womens suprvsn of normal 6-201 [place]. 700 [facility] [place], , second 7 Medical PO Box [email or web address] weeks Center 1522, gestation of [place], 120, [place], [place], [id number], [place], [place] [id number] tel:+ , [place]. tel:[phone] Lowell Mishra Encounter for George-2 Rahul In Womens suprvsn of normal 0-201 [place]. 700 [facility] [place], , second 7 Medical PO Box [email or web address] weeks Center 1522, gestation of [place], 120, [place], [place], , [place], [place] [id number] tel:+ , [place]. tel:[phone] Lowell Mishra Encounter for George-1 Rahul In Womens suprvsn of normal 2-201 [place]. 700 [facility] [place], , second 7 Medical PO Box [email or web address] weeks Center 1522, gestation of [place], 120, [place], [place], [id number], [place], [place] [id number] tel:+ , [place]. tel:[phone] Lowell Mishra Encounter for Juancarlos-2 Rahul In Womens suprvsn of normal 8-201 [place]. 700 [facility] [place], , second 7 Medical PO Box [email or web address] weeks Center 1522, gestation of [place], 120, [place], [place], [id number], [place], [place] [id number] tel:+ , [place]. tel:[phone] [facility] Encounter for Juancarlos-2 Rahul In Womens Ultrasound 8-201 [place]. 700 [facility] [place], screening of 7 Medical PO Box [email or web address] weeks Center 1522, gestation of [place], 120, [place], Mishra, [id number], [place], [place] [id number] tel:+ , [place]. tel: [phone] [facility] Encounter for Juancarlos-0 Rahul In Womens suprvsn of normal 1-201 [place]. 700 [facility] [place], , second 7 Medical PO Box [email or web address] weeks Center 1522, gestation of [place], 120, [place], [place], [id number], [place], [place] [id number] tel:+ , [place]. tel: [phone] Lowell Mishra Encounter for May-1 Rahul In Womens suprvsn of normal 1-201 [place]. 700 [facility] [place], , first 7 Medical PO Box [email or web address] weeks Center 1522, gestation of [place], 120, [place], [place], , [place], [place] [id number] tel:+ , [place]. tel: [phone] Lowell Mishra Endo, nutritional May-1 Rahul In Womens Ultrasound and metab 1-201 [place]. 700 [facility] [place], diseases comp 7 Medical PO Box preg, first Center 1522, triEncounter for [place], suprvsn of normal 120, [place], , first Mishra, [id number], [email or web address] weeks [place], [place] gestation of [id number] tel:+ , [place]. tel: [phone] Lowell Mishra Encounter for May-0 Rahul In Womens suprvsn of normal 9-201 [place]. 700 [facility] [place], , first 7 Medical PO Box [email or web address] weeks Center 1522, gestation of [place], 120, [place], [place], [id number], [place], [place] [id number] tel: , . tel: [phone] [facility] Contact w and Apr-2 Rahul In Womens exposure to 0-201 [place]. 700 [facility] [place], infect w a sexl 7 Medical PO Box mode of Center 1522, transmissEncounte [place], r for suprvsn of 120, [place], normal , Mishra, [id number], first [email or web address] [place], [place] weeks gestation tel:+ of , [place]. tel: [phone] [facility] Encounter for Apr-1 Rahul In Womens suprvsn of normal 2-201 [place]. 700 [facility] [place], , first 7 Medical PO Box trimester9 weeks Center 1522, gestation of [place], 120, [place], Mishra, [id number], [place], [place] tel: , . tel: [phone] Lowell Mishra Generalized Apr-1 Rahul In Womens anxiety disorder9 0-201 [place]. 700 [facility] [place], weeks gestation 7 Medical PO Box of Center 1522, [place], 120, [place], Mish[place], , [place], [place] tel: , . tel: [phone] Lowell Mishra Encounter for Mar-3 Rahul In Womens suprvsn of normal 0-201 [place]. 700 [facility] [place], , first 7 Medical PO Box trimesterLess Center 1522, than 8 weeks [place], gestation of 120, [place], Mishra, [id number], [place], [place] tel: , . tel: [phone] Lowell Mishra state, Mar-1 Rahul In Womens incidentalEncount 6-201 [place]. 700 Health [place], er for suprvsn of 7 Medical PO Box normal , Center 1522, first trimester8 [place], weeks gestation 120, [place], of [place]ad, [id number], [place], [place] tel: , . tel: [phone] Lowell Mishra Irregular Mar-0 Gibbs In Womens MensesAbnormal 8-201 [place]. [facility] [place], Pap, LSILAbnormal 7 700 PO Box Pap, AGUSEncntr Medical 1522, screen for [place], infections w sex[address] Dr, mode of 120, [id number], transmissEncounte Mishra, r for [place], tel: test, result positive , [place]. state, tel: incidentalPregnan [id number] t state, incidental [facility] Veliz screen for Aug-2 Gibbs In Womens infections w sexl 2-201 [place]. [facility] [place], mode of 6 700 PO Box transmissPap Medical 1522, Smear Screening, [place], CervixHigh risk [place], heterosexual 120, , behavior [place], [place], tel:[phone] , [place]. tel: [phone] [facility] Abnormal Pap, Jun-1 Rahul In Womens LSILAbnormal Pap, 1-201 [place]. 700 Health [place], LSILEncounter for 6 Medical PO Box test, Center 1522, result negative [place], 120, [place], Mishra, , [place], [place] [id number] tel: , [place]. 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 [facility] [place], (routine) w/o abn 6 700 PO Box findingsEncntr Medical 1522, screen for [place], infections w sexl [place], mode of 120, , transmissEncntr Mishra, screen for [place], tel: infections w sexl [phone] mode of , [place]. transmissPap tel: Smear Screening, [id number] Cervix [facility] Mar-0 Gibbs In Womens 4-200 [place]. [facility] [place], 8 700 PO Box Medical 1522, Center [place], [place], 120, [id number], [place], [place], tel: [phone] , [place]. tel: [phone] Family History Family Member Diagnosis Age At Onset Maternal uncle Diabetes mellitus Paternal Grandfather Diabetes mellitus Immunizations Vaccine Date Status Comments Influenza, injectable, completed Source: New Immunization Record quadrivalent, preservative free, 3 yrs or older Tdap completed Source: New Immunization Record Tdap ordered Source: New Immunization Record Payers Payer name Insurance type Covered libertarian ID Authorization(s) [employer] (Advantra) Medicare ALWAYS CI [id number] PRIM [employer] - Medicaid MC [id number] Medica CI [id number] [employer] (Advantra) Medicare ALWAYS CI [id number] PRIM [employer] [place] [employer] - Medicaid [place] [id number] [employer] ([employer]) Medicare ALWAYS CI [id number] PRIM [employer] - Medicaid [place] [id number] Social History Type Description Quantity Date Captured Alcohol Use Details No Caffeine Use Details Unknown Tobacco Use Status Unknown Smoking Status Never smoker Vital Signs Date / Height Weight BMI Pulse Blood Temperature Respiratory Body Head BMI Time: Rate Pressure Rate Surface Circumference percentile Area 180.80 30.0 /2017 lbs 8 mm[Hg] 10:27 kg/m AM eter (2) Chief Complaint And Reason For Visit Unknown Chief Complaint And Reason For Visit Reason For Referral Reason For Referral Unknown Plan Of Care Date Type Action Status Appointment Kristal Dupree BOOKED Appointment Kristal Dupree BOOKED Appointment Kristal Dupree - [facility] [place]S, BOOKED PPTL Appointment Kristal Dupree [facility] [place] Primary [place]/S, PPTL. BOOKED MB Assist Unknown Immunization Tdap ordered Future Order: Radiology Order Ultrasound < 14 wks ([id number]) Ordered Future Order: Radiology Order Ultrasound OB Follow-up ([id number]) Ordered Future Order: Lab Order Pap Smear With HPV Reflex If ASCUS Ordered (WPMPap1) Future Order: Lab Order Pap Smear With HPV Reflex If ASCUS Ordered (WPMPap1) Future Order: Radiology Order Complete OB Ultrasound > 14 Ordered Weeks ([id number]) Date Type Problem Goal Intervention Status Start [...]
--- OUTSIDE RECORDS SUMMARY | 2017-02-22 11:01 | External Medical Summary | Continuity of Care Document ---
:1985 Author Organization [facility] Address [address] [place], [place] [id number] Phone Care Team Providers Name Role Phone [...] 50 MCG - Active Adrian Kay , mayra tablet oral route supervising every day 28 mg take 1 tablet by Not Available - Active iron-800 mcg oral route tablet every day valacyclovir 1 take 1 tablet by - No Longer gram tablet oral route Active every day for 5 days Problems Condition Effective Dates (start - stop) [...] third trimester 28 weeks gestation of - Encntr screen for infections w sexl mode of transmiss Encntr for or rn exam (general) - (routine) w/o abn findings [...] Description For Visit Team Members [facility] Sep-1 Rahul In Womens -[address] [facility] [place], 7 Medical PO Box Center [address], [place], 120, [place], [place], [id number], [place], [place] tel:[phone] , [place]. tel:[phone] [facility] Abnormal Pap, Sep-0 Rahul In Womens LSILAbnormal Pap, [place]. [facility] [place], LSILEncounter [facility] 7 Medical PO Box suprvsn of normal Center 1522, , third [place], trimesterEncounter 120, [place], for suprvsn of Tad, [id number], normal , [place], [place] third [id number] tel:[phone] weeks gestation of , [place]. [id number] weeks tel:+05-19 gestation of [id number] [facility] Aug-2 Rahul In Womens 4-[address] [facility] [place], 7 Medical PO Box [address], [place], 120, [place], [place], [id number], [place], [place] [id number] tel:+ , [place]. tel: [phone] [facility] Endo, nutritional Aug-2 Rahul In Womens and metab diseases 3-201 [place] [id number] [facility] [place], comp preg, third 7 Medical PO Box triEncounter for Center 1522, suprvsn of normal [place], , third 120, [place], [id number] weeks Tad, [id number], gestation of [place], [place] [id number] tel:[phone] , [place]. tel:[phone] Lowell Mishra Encounter for George-2 Rahul In Womens suprvsn of normal 6-201 [place]. 700 Health [place], , second 7 Medical PO Box weeks Center 1522, gestation of [place], 120, [place], [place], [id number], [place], [place] [id number] tel: , [place]. tel: [phone] [facility] Encounter for George-2 Rahul In Womens suprvsn of normal 0-201 [place]. 700 Health [place], , second 7 Medical PO Box [email or web address] weeks Center 1522, gestation of [place], 120, [place], [place], [id number], [place], [place] [id number] tel:+ , [place]. tel: [phone] [facility] Encounter for George-1 Rahul In Womens suprvsn of normal 2-201 [place]. 700 Health [place], , second 7 Medical PO Box [email or web address] weeks Center 1522, gestation of [place], 120, [place], [place], [id number], [place], [place] [id number] tel:+ , [place]. tel: [phone] Lowell Mishra Encounter for Juancarlos-2 Rahul In Womens suprvsn of normal 8-201 [place]. 700 [facility] [place], , second 7 Medical PO Box [email or web address] weeks Center 1522, gestation of [place], 120, [place], [place], , [place], [place] [id number] tel: , [place]. tel: [phone] Lowell Mishra Encounter for Juancarlos-2 Rahul In Womens Ultrasound screening 8-201 [place]. 700 [facility] [place], of weeks 7 Medical PO Box gestation of Center 1522, [place], 120, [place], [place], , [place], [place] [id number] tel:+ , [place]. tel: [phone] Lowell Mishra Encounter for Juancarlos-0 Rahul In Womens suprvsn of normal 1-201 [place]. 700 [facility] [place], , second 7 Medical PO Box [id number] weeks Center 1522, gestation of [place], 120, [place], [place], [id number], [place], [place] [id number] tel: , [place]. tel: [phone] Lowell Mishra Encounter for May-1 Rahul In Womens suprvsn of normal 1-201 [place]. 700 [facility] [place], , first 7 Medical PO Box [email or web address] weeks Center 1522, gestation of [place], 120, [place], [place], [id number], [place], [place] [id number] tel:+ , [place]. tel: [phone] [facility] Endo, nutritional May-1 Rahul In Womens Ultrasound and metab diseases 1-201 [place]. 700 [facility] [place], comp preg, first 7 Medical PO Box triEncounter for Center 1522, suprvsn of normal [place], , first 120, [place], [id number] weeks Tad, , gestation of [place], [place] tel:+ , [place]. tel: [phone] Lowell Mishra Encounter for May-0 Rahul In Womens suprvsn of normal 9-201 [place]. 700 [facility] [place], , first 7 Medical PO Box [email or web address] weeks Center 1522, gestation of [place], 120, [place], [place], , [place], [place] tel:+ , [place]. tel: [phone] Lowell Mishra Encounter for Apr-2 Rahul In Womens suprvsn of normal 0-201 [place]. 700 [facility] [place], , first 7 Medical PO Box trimesterContact w Center 1522, and exposure to [place], infect w a sexl 120, [place], mode of [email or web address] Tad, , weeks gestation of [place], [place] [id number] tel:+ , [place]. tel: [phone] Lowell Mishra Encounter for Apr-1 Rahul In Womens suprvsn of normal 2-201 [place]. 700 [facility] [place], , first 7 Medical PO Box trimester9 weeks Center 1522, gestation of [place], 120, [place], [place], , [place], [place] tel: , [place]. tel: [phone] [facility] Generalized anxiety Apr-1 Rahul In Womens disorder9 weeks 0-201 [place]. 700 [facility] [place], gestation of 7 Medical PO Box Center [address], [place], 120, [place], [place], [id number], [place], [place] tel: , [place]. tel: [phone] [facility] Encounter for Mar-3 Rahul In Womens suprvsn of normal 0-201 [place]. 700 [facility] [place], , first 7 Medical PO Box trimesterLess than Center 1522, 8 weeks gestation [place], of 120, [place], [place], , [place], [place] tel: , [place]. tel: [phone] Lowell Mishra state, Mar-1 Rahul In Womens incidentalEncounter 6-201 [place]. 700 [facility] [place], for suprvsn of 7 Medical PO Box normal , Center [address], first trimester8 [place], weeks gestation of 120, [place], [place], , [place], [place] tel: , [place]. tel: [phone] Lowell Mishra Irregular Mar-0 Gibbs In Womens MensesAbnormal Pap, 8-201 [place]. Health [place], LSILEncntr screen 7 700 PO Box for infections w [facility] 1522, sexl mode of [facility], transmissAbnormal [place], Pap, AGUS 120, , state, [place], incidental [place], tel: [facility], [phone] [id number] [facility] , . for test, tel: result positive [phone] [facility] Encntr screen for Aug-2 Gibbs In Womens infections w sexl 2-201 [place]. Health [place], mode of 6 700 PO Box transmissPap Smear [facility] 1522, Screening, [facility], CervixHigh risk [place], heterosexual 120, , behavior [place], [place], tel:[phone] , [place]. tel: [phone] Lowell Mishra Abnormal Pap, Mar-1 Rahul In Womens LSILAbnormal Pap, 1-201 [place]. 700 [facility] [place], LSILEncounter for 6 Medical PO Box test, Center 1522, result negative [place], 120, [place], [place], [id number], [place], [place] [id number] tel: , [place]. tel: [phone] Lowell Mishra Encntr screen for Mar-0 Gibbs In Womens infections w sexl 2-201 [place]. [facility] [place], mode of 6 700 PO Box transmissEncntr Medical 1522, screen for [facility] [place], infections w sexl [place], mode of 120, , transmissEncntr for [place], or rn exam (general) [place], tel: (routine) w/o abn [id number] findingsPap Smear , [place]. Screening, Cervix tel: [phone] Lowell Mishra Mar-0 Gibbs In Womens 4-200 [place]. [facility] [place], 8 700 PO Box Medical 1522, Center [place], [place], 120, [id number], [place], [place], tel: [phone] [address] , [place]. tel: [phone] Family History Family Member Diagnosis Age At Onset Maternal uncle Diabetes mellitus Paternal Grandfather Diabetes mellitus Immunizations Vaccine Date Status Comments Unknown Payers Payer name Insurance type Covered alliance party ID Authorization(s) [facility] Medicare ALWAYS CI [id number] PRIM [employer] [place] [employer] - Medicaid MC [id number] Medica CI [id number] Social History Type Description Quantity Date Captured [...] Order: Radiology Order Ultrasound < 14 wks ([id number]) Ordered Future Order: Lab Order Pap Smear With HPV Reflex If ASCUS Ordered ([id number]) Future Order: Lab Order Pap Smear With HPV Reflex If ASCUS Ordered (WPMPap1) Future Order: Radiology Order Complete OB Ultrasound > 14 Ordered Weeks ([id number]) Date Type Problem Goal Intervention Status Start [...]
--- OUTSIDE RECORDS SUMMARY | 2017-02-22 11:03 | External Medical Summary ---
:1985 Author Organization [employer] Care Team Providers Name Role Phone Neetu Castaneda Provider Role Unavailable Allergies, Adverse Reactions, Alerts Substance Reaction Event Type N.K.D.A. 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 Assessment Encounter for initial prescription Z30.011 Active of contraceptive pills Problem Encounter for initial prescription Z30.011 Active of contraceptive pills Assessment Encounter for test, Z32.00 Active result unknown Medications Medication Code System Code Instructions Start End Date Status Dosage Date Ortho [facility] 65319-498 0.18/0.215/0.25 Feb 23, 1 tablet Tri-Cyclen Lo 1-15 MG-25 MCG Orally 2015 Once a day Acyclovir [facility] 64144-611 400 MG Orally Jan 21, 1 tablet 3-01 Twice a day 2015 Procedures Procedure Coding System Code Date Office Visit, Est Pt., Level 3 CPT-4 40355 Feb 24, 2016 URINE TEST CPT-4 90398 Feb 24, 2016 Vital Signs Date/Time: Feb 24, 2016 BMI 22.75 Index Weight 143.12 lbs Height 66.5 in Blood Pressure Diastolic 74 mm Hg Blood Pressure Systolic 121 mm Hg Temperature 98.0 F Cardiac Monitoring Heart Rate 78 /min Results Name Result Date Reference Range Unit Abnormality Flag Urine Test (GM) ----Negative Negative [id number] Summary Purpose [employer] Submission
--- OUTSIDE RECORDS SUMMARY | 2017-02-22 11:03 | External Medical Summary | Continuity of Care Document ---
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 tel: [phone] Lowell Mishra George-2 Rahul In Womens 3-201 [place]. 700 [facility] [place], 7 Medical PO Box Center [address], [place], 120, [place], [place], [id number], [place], [place] [id number] tel:+ , [place]. tel: [phone] Lowell Mishra Encounter for George-2 Rahul In Womens suprvsn of normal 0-201 [place]. 700 Health [place], , second 7 Medical PO Box weeks Center 1522, gestation of [place], 120, [place], [place], , [place], [place] [id number] tel:+ , [place]. tel: [phone] Lowell Mishra Encounter for George-1 Rahul In Womens suprvsn of normal 2-201 [place]. 700 [facility] [place], , second 7 Medical PO Box [email or web address] weeks Center 1522, gestation of [place], 120, [place], [place], , [place], [place] [id number] tel: , [place]. tel: [phone] Lowell Mishra Encounter for Juancarlos-2 Rahul In Womens suprvsn of normal 8-201 [place]. 700 [facility] [place], , second 7 Medical PO Box [email or web address] weeks Center 1522, gestation of [place], 120, [place], [place], [id number], [place], [place] [id number] tel: , [place]. tel: [phone] Lowell Mishra Encounter for Juancarlos-2 Rahul In Womens Ultrasound screening 8-201 [place]. 700 [facility] [place], of [email or web address] weeks 7 Medical PO Box gestation of Center 1522, [place], 120, [place], [place], , [place], [place] [id number] tel: , [place]. tel: [phone] [facility] Encounter for Juancarlos-0 Rahul In Womens suprvsn of normal 1-201 [place]. 700 [facility] [place], , second 7 Medical PO Box [email or web address] weeks Center 1522, gestation of [place], 120, [place], [place], [id number], [place], [place] [id number] tel:+ , [place]. tel: [phone] Associates aTd Encounter for May-1 Rahul In Womens suprvsn of normal 1-201 [place]. 700 [facility] [place], , first 7 Medical PO Box [id number] weeks Center 1522, gestation of [place], 120, [place], [place], [id number], [place], [place] [id number] tel:+ , [place]. tel: [phone] [facility] Endo, nutritional May-1 Rahul In Womens Ultrasound and metab diseases 1-201 [place]. 700 [facility] [place], comp preg, first 7 Medical PO Box triEncounter for [place] 1522, suprvsn of normal [place], , first 120, [place], [email or web address] weeks Tad, [id number], gestation of [place], [place] [id number] tel: , [place]. tel: [phone] Lowell Mishra 13 weeks gestation May-0 Rahul In Womens of 9-201 [place]. 700 [facility] [place], pregnancyEncounter 7 Medical PO Box for suprvsn of [place] 1522, normal , [place], first trimester 120, [place], [place], [id number], [place], [place] [id number] tel: , [place]. tel: [phone] [facility] Contact w and Apr-2 Rahul In Womens exposure to infect 0-201 [place]. 700 [facility] [place], w a sexl mode of 7 Medical PO Box transmissEncounter [place] 1522, for suprvsn of [place], normal , 120, [place], first [email or web address] Mishra, [id number], weeks gestation of [place], [place] [id number] tel: , [place]. tel: [phone] Lowell Mishra 9 weeks gestation Apr-1 Rahul In Womens of 2-201 [place]. 700 Health [place], pregnancyEncounter 7 Medical PO Box for suprvsn of Center 1522, normal , [place], first trimester 120, [place], [place], [id number], [place], [place] [id number] tel:+ , [place]. tel: [phone] Lowell Mishra Generalized anxiety Apr-1 Rahul In Womens disorder9 weeks 0-201 [place]. 700 [facility], gestation of 7 Medical PO Box Center [address], [place], 120, [place], [place], [id number], [place], [place] [id number] tel: , [place]. tel: [phone] Lowell Mishra Encounter for Mar-3 Rahul In Womens suprvsn of normal 0-201 [place]. 700 [facility], , first 7 Medical PO Box trimesterLess than Center 1522, 8 weeks gestation [place], of 120, [place], [place], [id number], [place], [place] [id number] tel:+ , [place]. tel: [phone] Lowell Mishra state, Mar-1 Rahul In Womens incidentalEncounter 6-201 [place]. 700 [facility], for suprvsn of 7 Medical PO Box normal , Center 1522, first trimester8 [place], weeks gestation of 120, [place], [place], , [place], [place] [id number] tel: , [place]. tel: [phone] Lowell Mishra Irregular Mar-0 Gibbs In Womens MensesAbnormal Pap, 8-201 [facility]. Health [place], LSILAbnormal Pap, 7 700 PO Box AGUSEncntr screen [place] [id number], for infections w [place], sexl mode of [place], transmissEncounter 120, , for test, [place], [place] result [place], tel:+ positive [phone] state, , [place]. incidental tel: state, incidental [phone] Lowell Mishra Encntr screen for Aug-2 Gibbs In Womens infections w sexl 2-201 [place]. [facility] [place], mode of 6 700 PO Box transmissPap Smear Medical 1522, Screening, [place], CervixHigh risk [place], heterosexual 120, [id number], behavior [place], [place], tel:+ [phone] , [place]. tel: [phone] [facility] Abnormal Pap, Jun-1 Rahul In Womens LSILAbnormal Pap, -201 [place]. 700 [facility] [place], LSILEncounter for 6 Medical PO Box test, Center 1522, result negative [place], 120, [place], [place], [id number], [place], [place] [id number] tel:+ , [place]. 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 [facility] [place], w/o abn 6 700 PO Box findingsEncntr Medical 1522, screen for [facility] [place], infections w sexl [place], mode of 120, [id number], transmissEncntr [place]ish[place], screen for [place], tel: infections w sexl [phone] mode of , [place]. transmissPap Smear tel: Screening, Cervix [id number] Associates [facility]ad Mar-0 Gibbs In Womens 4-200 [place]. [facility] [place], 8 700 PO Box Medical 1522, [place] [address] [place], 120, [id number], [place], [place], tel: [phone] , [place]. tel: [phone] Family History Family Member Diagnosis Age At Onset Maternal uncle Diabetes mellitus Paternal Grandfather Diabetes mellitus Immunizations Vaccine Date Status Comments Unknown Payers Payer name Insurance type Covered libertarian ID Authorization(s) [place] ([employer]) Medicare ALWAYS CI [id number] [facility] [id number] Medica CI [id number] Social History Type Description Quantity Date Captured [...] Order: Radiology Order Ultrasound < 14 wks ([id number]) Ordered Future Order: Lab Order Pap Smear With HPV Reflex If ASCUS Ordered (WPMPap1) Future Order: Lab Order Pap Smear With HPV Reflex If ASCUS Ordered (WPMPap1) Future Order: Radiology Order Complete OB Ultrasound > 14 Ordered Weeks ([id number]) Date Type Problem Goal Intervention Status Start [...]
--- OUTSIDE RECORDS SUMMARY | 2017-02-22 11:04 | External Medical Summary | Continuity of Care Document ---
:1985 Author Organization [facility] Address [address] [place], [place] [id number] Phone Care Team Providers Name Role Phone [...] Adrian Kay , mcg tablet oral route supervising every day 28 mg take 1 tablet by Not Available - Active iron-800 mcg oral route tablet every day Proventil HFA 90 inhale 2 puff by Not Available - No Longer mcg/actuation Inhalation route Active aerosol inhaler every 4 - 6 hours as needed Problems Condition Effective Dates (start - stop) Clinical Status Encntr screen for infections w sexl - mode of transmiss Encounter for suprvsn of normal - , third trimester 32 weeks gestation of - state, incidental - 8 weeks gestation of [...] for test, result - negative 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 findings [...] second trimester 16 weeks gestation of - 20 weeks gestation of - Encounter for screening of - mother Encounter for suprvsn of normal - , second trimester 22 weeks gestation of - Encounter for suprvsn of normal - , second trimester 23 weeks gestation of - 24 weeks gestation of - Encounter for suprvsn of normal - , second trimester Encounter for suprvsn of normal - , third trimester 32 weeks gestation of - 34 weeks gestation of - Encounter for suprvsn of normal - , third trimester IUD Surveillance - Active Trichomonas Vaginitis [...] Description For Visit Team Members Lowell Mishra 34 weeks gestation Jan-0 Rahul In Womens of 3-201 [place]. [facility] MD, pregnancyEncounter 7 Medical PO Box for suprvsn of Center 1522, normal , [place], third trimester 120, [place], [place], [id number], [place], [place] [id number] tel: , [place]. [id number] tel: [phone] Lowell Mishra Encounter for Sep-2 Rahul In Womens suprvsn of normal 2-201 [place]. [facility] MD, , third 7 Medical PO Box [email or web address] weeks Center 1522, gestation of [place], 120, [place], [place], [id number], [place], [place] [id number] tel:2 , [place]. [id number] tel: [phone] Lowell Mishra Encounter for Sep-1 Rahul In Womens suprvsn of normal 9-201 [facility] MD, , third 7 Medical PO Box [email or web address] weeks Center 1522, gestation of [place], 120, [place], [place], [id number], [place], [place] [id number] tel: , [place]. tel: [phone] Lowell Mishra Sep-1 Rahul In Womens 4-201 [place]. [facility], 7 Medical PO Box Center 1522, [place], 120, [place], [place], [id number], [place], [place] [id number] tel:+ , [place]. tel: [phone] Lowell Mishra Abnormal Pap, Sep-0 Rahul In Womens LSILAbnormal Pap, 6-201 [place]. [facility] [place], [email or web address] weeks 7 Medical PO Box gestation of Center 1522, [email or web address] weeks [place], gestation of 120, [place], pregnancyEncounter T[place], , for suprvsn of [place], [place] normal , [id number] tel: third , [place]. trimesterEncounter tel: for suprvsn of [phone] normal , third trimester [facility] Endo, nutritional Aug-2 Rahul In Womens and metab diseases 3-201 [place]. [facility] [place], comp preg, third 7 Medical PO Box triEncounter for Center 1522, suprvsn of normal [place], , third 120, [place], [email or web address] weeks Mishra, , gestation of [place], [place] [id number] tel: , [place]. tel: [phone] Lowell Mishra 24 weeks gestation George-2 Rahul In Womens of 6-201 [place]. [facility] [place], pregnancyEncounter 7 Medical PO Box for suprvsn of Center 1522, normal , [place], second trimester 120, [place], [place], [id number], [place], [place] [id number] tel: , [place]. tel: [phone] [facility] Encounter for George-2 Rahul In Womens suprvsn of normal 0-201 [place]. [facility] [place], , second 7 Medical PO Box weeks Center 1522, gestation of [place], 120, [place], [place], [id number], [place], [place] [id number] tel:+ , [place]. tel: [phone] Lowell Mishra Encounter for George-1 Rahul In Womens suprvsn of normal 2-201 [place]. [facility] [place], , second 7 Medical PO Box [email or web address] weeks Center 1522, gestation of [place], 120, [place], [place], [id number], [place], [place] [id number] tel:+ , [place]. tel: [phone] Lowell Mishra Encounter for Juancarlos-2 Rahul In Womens suprvsn of normal 8-201 [place]. 700 [facility] [place], , second 7 Medical PO Box [email or web address] weeks Center 1522, gestation of [place], 120, [place], [place], [id number], [place], [place] [id number] tel:+ , [place]. tel: [phone] Lowell Mishra 20 weeks gestation Juancarlos-2 Rahul In Womens Ultrasound of 8-201 [place]. [facility] [place], pregnancyEncounter 7 Medical PO Box for Center 1522, screening of mother [place], 120, [place], [place], , [place], [place] [id number] tel:+ , [place]. tel: [phone] Lowell Mishra Encounter for Juancarlos-0 Rahul In Womens suprvsn of normal 1-201 [place]. 700 [facility] [place], , second 7 Medical PO Box [email or web address] weeks Center 1522, gestation of [place], 120, [place], [place], , [place], [place] [id number] tel:+ , [place]. tel: [phone] Lowell Mishra Encounter for May-1 Rahul In Womens suprvsn of normal 1-201 [place]. [facility] [place], , first 7 Medical PO Box [email or web address] weeks Center 1522, gestation of [place], 120, [place], [place], [id number], [place], [place] [id number] tel:+ , . tel: [phone] Lowell Mishra Endo, nutritional May-1 Rahul In Womens Ultrasound and metab diseases 1-201 [place]. 700 [facility] [place], comp preg, first 7 Medical PO Box triEncounter for Center 1522, suprvsn of normal [place], , first 120, [place], [email or web address] weeks Mishra, [id number], gestation of [place], [place] [id number] tel:+ , [place]. tel:[phone] [facility] Encounter for May-0 Rahul In Womens suprvsn of normal 9-201 [place]. 700 [facility] [place], , first 7 Medical PO Box [email or web address] weeks Center 1522, gestation of [place], 120, [place], [place], [id number], [place], [place] [id number] tel:+ , [place]. tel: [phone] [facility] Contact w and Apr-2 Rahul In Womens exposure to infect 0-201 [place]. 700 [facility] [place], w a sexl mode of 7 Medical PO [facility] [place] [facility], for suprvsn of [place], normal , 120, [place], first Mishra, [id number], weeks gestation of [place], [place] [id number] tel:+ , [place]. tel: [phone] Lowell Mishra Encounter for Apr-1 Rahul In Womens suprvsn of normal 2-201 [place]. 700 [facility] [place], , first 7 Medical PO Box trimester9 weeks Center 1522, gestation of [place], 120, [place], [place], [id number], [place], [place] [id number] tel:+ , [place]. tel: [phone] Lowell Mishra Generalized anxiety Apr-1 Rahul In Womens disorder9 weeks 0-201 [place]. [facility] [place], gestation of 7 Medical PO Box Center 1522, [place], 120, [place], [place], [id number], [place], [place] [id number] tel:+ , [place]. tel:[phone] Lowell Mishra Encounter for Mar-3 Rahul In Womens suprvsn of normal 0-201 [place]. 700 [facility] [place], , first 7 Medical PO Box trimesterLess than Center 1522, 8 weeks gestation [place], of 120, [place], Mishra, , [place], [place] [id number] tel: , [place]. tel: [phone] [facility] state, Mar-1 Rahul In Womens incidental8 weeks 6-201 [place]. 700 [facility] [place], gestation of 7 Medical PO Box pregnancyEncounter Center 1522, for suprvsn of [place], normal , 120, [place], first trimester Mishra, , [place], [place] [id number] tel: , [place]. tel: [phone] [facility] Irregular Mar-0 [place] In Womens MensesAbnormal Pap, 8-201 Health [place], LSILAbnormal Pap, 7 700 PO Box AGUSEncntr screen [facility] 1522, for infections w [place], sexl mode of [place], transmissEncounter 120, , for test, [place], result [place], tel: positive [phone] state, , [place]. incidental tel: state, incidental [phone] [facility] Encntr screen for Aug-2 Gibbs In Womens infections w sexl 2-201 Health [place], mode of 6 700 PO Box transmissPap Smear Medical 1522, Screening, [place], CervixHigh risk [place], heterosexual 120, , behavior Mishra, [place], tel:[phone] , [place]. tel: [phone] [facility] Abnormal Pap, Mar-1 Rahul In Womens LSILAbnormal Pap, 1-201 [place]. 700 Health [place], LSILEncounter for 6 Medical PO Box test, [place] 1522, result negative [place], 120, [place], Mishra, , [place], [place] [id number] tel: , [place]. 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 transmissPap Smear tel: Screening, Cervix [phone] [facility] Mar-0 [place] In Womens 4-200 [facility], 8 700 PO [facility] 15[address], [place] [address] Sanam, [place], 120, , [place]ishra, [place], tel: [phone] , [place]. tel: [phone] Family History Family Member Diagnosis Age At Onset Maternal uncle Diabetes mellitus Paternal Grandfather Diabetes mellitus Immunizations Vaccine Date Status Comments Unknown Payers Payer name Insurance type Covered republican ID Authorization(s) [employer]) Medicare ALWAYS CI [id number] PRIM [employer] [place] [employer] - Medicaid MC [id number] Medica CI [id number] Social History Type Description Quantity Date Captured Alcohol Use Details No Caffeine Use Details Unknown Tobacco Use Status Unknown Smoking Status Never smoker Vital Signs Date / Height Weight BMI Pulse Blood Temperature Respiratory Body Head BMI Time: Rate Pressure Rate Surface Circumference percentile Area 185.60 30.8 / lbs 8 mm[Hg] 2:32 kg/m PM eter (2) Chief Complaint And Reason For Visit Unknown Chief Complaint And Reason For Visit Reason For Referral Reason For Referral Unknown Plan Of Care Date Type Action Status Appointment Kristal Dupree BOOKED Appointment Kristal Dupree BOOKED Future Order: Radiology Order Ultrasound < 14 wks ([id number]) Ordered Future Order: Lab Order Pap Smear With HPV Reflex If ASCUS Ordered ([id number]) Future Order: Lab Order Pap Smear With HPV Reflex If ASCUS Ordered (WPMPap1) Future Order: Radiology Order Complete OB Ultrasound > 14 Ordered Weeks ([id number]) Date Type Problem Goal Intervention Status Start Date Unknown. History Of Present Illness Encounter Date Complaint History Of Present Illness This patient has no known history of present illness Functional Status Encounter Date Functional Assessment Cognitive Assessment Unknown Medications Administered Medication Instructions Dosage Effective Dates Status Comments (start - stop) Proventil HFA 90 inhale 2 puff by Not Available - No Longer mcg/actuation Inhalation route Active aerosol inhaler every 4 - 6 hours as needed Instructions Date Instruction Additional Information HIV and [...]
--- OUTSIDE RECORDS SUMMARY | 2017-02-22 11:04 | External Medical Summary ---
:1985 Author Organization [employer] Care Team Providers Name Role Phone Mitesh Dickinson Provider Role Unavailable Allergies No Known Allergies Problems Problem Type Condition ICD-9 Code Onset Dates Condition Status Problem Hyperlipemia 272.4 Active Medications Medication Code System Code Instructions Start Date End Date Status Dosage alprazolam [facility] 98547 0.25 mg orally 2 May 22, 2014 1 tab(s) times a day as needed for anxiety Results No Known Results Summary Purpose [employer] Submission
--- OUTSIDE RECORDS SUMMARY | 2017-02-22 11:04 | External Medical Summary | Continuity of Care Document ---
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 tel: [phone] Lowell Mishra Encounter for George-2 Rahul In Womens suprvsn of normal 0-201 [place]. 700 [facility] [place], , second 7 Medical PO Box [email or web address] weeks Center 1522, gestation of [place], 120, [place], [place], [id number], [place], [place] [id number] tel:+ , [place]. tel: [phone] Lowell Mishra George-1 Rahul In Womens 7-201 [place]. 700 [facility] [place], 7 Medical PO Box Center 1522, [place], 120, [place], [place], , [place], [place] [id number] tel:+ , [place]. tel: [phone] Lowell Mishra Encounter for George-1 Rahul In Womens suprvsn of normal 2-201 [place]. 700 [facility] [place], , second 7 Medical PO Box [email or web address] weeks Center 1522, gestation of [place], 120, [place], [place], [id number], [place], [place] [id number] tel: , [place]. tel: [phone] Lowell Mishra Encounter for Juancarlos-2 Rahul In Womens suprvsn of normal 8-201 [place]. 700 [facility] [place], , second 7 Medical PO Box [email or web address] weeks Center 1522, gestation of [place], 120, [place], [place], [id number], [place], [place] [id number] tel: , [place]. tel:[phone] Lowell Mishra Encounter for Juancarlos-2 Rahul In Womens Ultrasound screening 8-201 [place]. 700 [facility] [place], of [email or web address] weeks 7 Medical PO Box gestation of Center 1522, [place], 120, [place], [place], , [place], [place] [id number] tel: , [place]. tel: [phone] [facility] Encounter for Juancarlos-0 Rahul In Womens suprvsn of normal 1-201 [place]. 700 [facility] [place], , second 7 Medical PO Box [email or web address] weeks Center 1522, gestation of [place], 120, [place], [place]ra, [id number], [place], [place] [id number] tel:+ , [place]. tel: [phone] [facility] Encounter for May-1 Rahul In Womens suprvsn of normal 1-201 [place]. 700 [facility] [place], , first 7 Medical PO Box [email or web address] weeks Center 1522, gestation of [place], 120, [place], [place], [id number], [place], [place] [id number] tel:+ , [place]. tel: [phone] [facility] Endo, nutritional May-1 Rahul In Womens Ultrasound and metab diseases 1-201 [place]. 700 [facility] [place], comp preg, first 7 Medical PO Box triEncounter for [place] 1522, suprvsn of normal [place], , first 120, [place], [email or web address] weeks Tad, [id number], gestation of [place], [place] [id number] tel: , [place]. tel: [phone] Lowell Mishra 13 weeks gestation May-0 Rahul In Womens of 9-201 [place]. 700 [facility] [place], pregnancyEncounter 7 Medical PO Box for suprvsn of [place] 1522, normal , [place], first trimester 120, [place], [place], [id number], [place], [place] [id number] tel: , [place]. tel: [phone] [facility] Contact w and Apr-2 Rahul In Womens exposure to infect 0-201 [place]. 700 [facility] [place], w a sexl mode of 7 Medical PO Box transmissEncounter [place] 1522, for suprvsn of [place], normal , 120, [place], first [email or web address] Mishra, [id number], weeks gestation of [place], [place] [id number] tel: , [place]. tel: [phone] Lowell Mishra 9 weeks gestation Apr-1 Rahul In Womens of 2-201 [place]. 700 Health [place], pregnancyEncounter 7 Medical PO Box for suprvsn of Center 1522, normal , [place], first trimester 120, [place], [place], [id number], [place], [place] [id number] tel:+ , [place]. tel: [phone] Lowell Mishra Generalized anxiety Apr-1 Rahul In Womens disorder9 weeks 0-201 [place]. 700 [facility], gestation of 7 Medical PO Box Center 1522, [place], 120, [place], [place], [id number], [place], [place] [id number] tel: , [place]. tel: [phone] Lowell Mishra Encounter for Mar-3 Rahul In Womens suprvsn of normal 0-201 [place]. 700 [facility], , first 7 Medical PO Box trimesterLess than Center 1522, 8 weeks gestation [place], of 120, [place], [place]ra, [id number], [place], [place] [id number] tel:+ , [place]. tel: [phone] Lowell Mishra state, Mar-1 Rahul In Womens incidentalEncounter 6-201 [place]. 700 [facility], for suprvsn of 7 Medical PO Box normal , Center 1522, first trimester8 [place], weeks gestation of 120, [place], [place], , [place], [place] [id number] tel: , [place]. tel: [phone] Lowell Mishra Irregular Mar-0 [place] In Womens MensesAbnormal Pap, 8-201 [facility]. Health [place], LSILAbnormal Pap, 7 700 PO Box AGUSEncntr screen [place] [id number], for infections w [place], sexl mode of [place], transmissEncounter 120, , for test, Mishra, [place] result [place], tel:+ positive [phone] state, , [place]. incidental tel: state, incidental [phone] Lowell Mishra Encntr screen for Aug-2 [place] In Womens infections w sexl 2-201 [place]. Health [place], mode of 6 700 PO Box transmissPap Smear Medical 1522, Screening, [place], CervixHigh risk [place], heterosexual 120, [id number], behavior Mish[place], [place], tel:+ [phone] , [place]. tel: [phone] [facility] Abnormal Pap, Jun- Rahul In Womens LSILAbnormal Pap, - [place]. 700 [facility] [place], LSILEncounter for 6 Medical PO Box test, Center 1522, result negative [place], 120, [place], Mishra, [id number], [place], [place] [id number] tel: , [place]. 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 [facility] [place], w/o abn 6 700 PO Box findingsEncntr Medical 1522, screen for [place], infections w sexl [place], mode of 120, , transmissEncntr Mishra, screen for [place], tel: infections w sexl [phone] mode of , [place]. transmissPap Smear tel: Screening, Cervix [phone] Lowell Mishra Mar-0 [place] In Womens 4-200 [place]. Nanalysis PA, 8 700 PO Box Medical 1522, [place] [address] [place] [address] [place], 120, [id number], [place], [place], tel:[phone] , [place]. tel: [phone] Family History Family Member Diagnosis Age At Onset Maternal uncle Diabetes mellitus Paternal Grandfather Diabetes mellitus Immunizations Vaccine Date Status Comments Unknown Payers Payer name Insurance type Covered green party ID [facility]ization([facility]) [facility] Medicare ALWAYS CI [id number] [facility] [id number] Medica CI [id number] Social History Type Description Quantity Date Captured [...] Order: Radiology Order Ultrasound < 14 wks ([id number]) Ordered Future Order: Lab Order Pap Smear With HPV Reflex If ASCUS Ordered ([id number]) Future Order: Lab Order Pap Smear With HPV Reflex If ASCUS Ordered ([id number]) Future Order: Radiology Order Complete OB Ultrasound > 14 Ordered Weeks ([id number]) Date Type Problem Goal Intervention Status Start [...]
--- OUTSIDE RECORDS SUMMARY | 2017-02-22 11:04 | External Medical Summary | Continuity of Care Document ---
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 700 [facility] [place], , second 7 Medical PO Box [email or web address] weeks Center 1522, gestation of [place], 120, [place], [place], , [place] [id number] tel:+ , [place]. tel: [phone] Lowell Mishra Encounter for George-2 Rahul In Womens suprvsn of normal 0-201 [place]. 700 [facility] [place], , second 7 Medical PO Box [email or web address] weeks Center 1522, gestation of [place], 120, [place], [place], [id number], [place], [place] [id number] tel: , . tel: [phone] Lowell Mishra George-1 Rahul In Womens 4-201 [place]. 700 [facility] [place], 7 Medical PO Box Center 1522, [place], 120, [place], [place], , [place], [place] [id number] tel:+ , [place]. tel: [phone] Lowell Mishra Encounter for George-1 Rahul In Womens suprvsn of normal 2-201 [place]. 700 [facility] [place], , second 7 Medical PO Box [email or web address] weeks Center 1522, gestation of [place], 120, [place], [place], , [place], [place] [id number] tel: , . tel: [phone] Lowell Mishra Encounter for Juancarlos-2 Rhaul In Womens suprvsn of normal 8-201 [place]. 700 [facility] [place], , second 7 Medical PO Box [email or web address] weeks Center 1522, gestation of [place], 120, [place], [place], , [place], [place] [id number] tel: , . tel: [phone] Lowell Mishra Encounter for Juancarlos-2 Rahul In Womens Ultrasound screening 8-201 [place]. 700 Health [place], of [email or web address] weeks 7 Medical PO Box gestation of Center 1522, [place], 120, [place], [place], [id number], [place], [place] [id number] tel:+ , [place]. tel:[phone] [facility] Encounter for Juancarlos-0 Rahlu In Womens suprvsn of normal 1-201 [place]. 700 [facility] [place], , second 7 Medical PO Box [email or web address] weeks Center 1522, gestation of [place], 120, [place], [place], [id number], [place], [place] [id number] tel:+ , [place]. tel:[phone] [facility] Encounter for May-1 Rahul In Womens suprvsn of normal 1-201 [place]. 700 [facility] [place], , first 7 Medical PO Box [email or web address] weeks Center 1522, gestation of [place], 120, [place], [place], [id number], [place], [place] [id number] tel:+ , [place]. tel:[phone] [facility] Endo, nutritional May-1 Rahul In Womens Ultrasound and metab diseases 1-201 [place]. 700 [facility] [place], comp preg, first 7 Medical PO Box triEncounter for Center 1522, suprvsn of normal [place], , first 120, [place], weeks Tad, , gestation of [place], [place] [id number] tel:+ , [place]. tel: [phone] Lowell Mishra Encounter for May-0 Rahul In Womens suprvsn of normal 9-201 [place]. 700 [facility] [place], , first 7 Medical PO Box [email or web address] weeks Center 1522, gestation of [place], 120, [place], [place], [id number], [place], [place] [id number] tel:+ , [place]. tel:[phone] [facility] Contact w and Apr-2 Rahul In Womens exposure to infect 0-201 [place]. 700 [facility] [place], w a sexl mode of 7 Medical PO Box transmissEncounter Center 1522, for suprvsn of [place], normal , 120, [place], first [email or web address] Mishra, [id number], weeks gestation of [place], [place] [id number] tel: , [place]. tel: [phone] [facility] 9 weeks gestation Apr-1 Rahul In Womens of 2-201 [place]. 700 [facility] [place], pregnancyEncounter 7 Medical PO Box for suprvsn of [place] [address], normal , [place], first trimester 120, [place], [place], [id number], [place], [place] [id number] tel:+ , [place]. tel: [phone] [facility] Generalized anxiety Apr-1 Rahul In Womens disorder9 weeks 0-201 [place]. 700 Health [place], gestation of 7 Medical PO Box [place] [address], [place], 120, [place], [place], [id number], [place], [place] [id number] tel: , [place]. tel: [phone] [facility] Less than 8 weeks Mar-3 Rahul In Womens gestation of 0-201 [place]. 700 [facility] [place], pregnancyEncounter 7 Medical PO Box for suprvsn of [place] [address], normal , [place], first trimester 120, [place], [place], , [place], [place] [id number] tel: , [place]. tel: [phone] [facility] state, Mar-1 Rahul In Womens incidentalEncounter 6-201 [place]. 700 [facility] [place], for suprvsn of 7 Medical PO Box normal , [place] [address], first trimester8 [place], weeks gestation of 120, [place], [place], , [place], [place] [id number] tel: , [place]. tel: [phone] [facility] Irregular Mar-0 Gibbs In Womens MensesAbnormal Pap, 8-201 [facility]. Health [place], LSILAbnormal Pap, 7 700 PO Box AGUSEncntr screen [place] [address], for infections w [place], sexl mode of [place], transmissEncounter 120, , for test, [place], [place] result [place], tel:+ positive [phone] state, , [place]. incidental tel: state, incidental [phone] [facility] Veliz screen for Aug-2 Gibbs In Womens infections w sexl 2-201 [place]. Health [place], mode of 6 700 PO Box transmissPap Smear Medical 1522, Screening, [place], CervixHigh risk [place], heterosexual 120, , behavior Mishra, [place], tel:[phone] , [place]. tel: [phone] Lowell Mishra Abnormal Pap, Mar-1 Rahul In Womens LSILAbnormal Pap, [place]. 700 [employer] [place], LSILEncounter for 6 Medical PO Box test, Center 1522, result negative [place], 120, [place], [place], , [place], [place] [id number] tel: , [place]. 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 transmissPap Smear tel: Screening, Cervix [phone] Lowell Mishra Mar-0 Gibbs In Womens 4-200 Health PA, 8 700 PO Box Medical 1522, [place], [place], 120, [id number], [place], [place], tel:[phone] , [place]. tel: [phone] Family History Family Member Diagnosis Age At Onset Maternal uncle Diabetes mellitus Paternal Grandfather Diabetes mellitus Immunizations Vaccine Date Status Comments Unknown Payers Payer name Insurance type Covered republican ID Authorization(s) [employer] ([employer]) Medicare ALWAYS CI [id number] PRIM [facility] Medicaid [id number] [place] [id number] Social History Type Description Quantity Date Captured [...] Order: Radiology Order Ultrasound < 14 wks ([id number]) Ordered Future Order: Lab Order Pap Smear With HPV Reflex If ASCUS Ordered ([id number]) Future Order: Lab Order Pap Smear With HPV Reflex If ASCUS Ordered (WPMPap1) Future Order: Radiology Order Complete OB Ultrasound > 14 Ordered Weeks ([id number]) Date Type Problem Goal Intervention Status Start [...]
--- OUTSIDE RECORDS SUMMARY | 2017-02-22 11:04 | External Medical Summary | Continuity of Care Document ---
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 tel: [phone] Lowell Mishra Encounter for George-2 Rahul In Womens suprvsn of normal 0-201 [place]. 700 [facility] [place], , second 7 Medical PO Box [email or web address] weeks Center 1522, gestation of [place], 120, [place], [place], [id number], [place], [place] [id number] tel:+ , [place]. tel: [phone] Lowell Mishra George-2 Rahul In Womens 0-201 [place]. 700 [facility] [place], 7 Medical PO Box Center 1522, [place], 120, [place], [place], , [place], [place] [id number] tel:+ , [place]. tel: [phone] Lowell Mishra Encounter for George-1 Rahul In Womens suprvsn of normal 2-201 [place]. 700 [facility] [place], , second 7 Medical PO Box [email or web address] weeks Center 1522, gestation of [place], 120, [place], [place], [id number], [place], [place] [id number] tel:+ , [place]. tel: [phone] Lowell Mishra Encounter for Juancarlos-2 Rahul In Womens suprvsn of normal 8-201 [place]. 700 [facility] [place], , second 7 Medical PO Box [email or web address] weeks Center 1522, gestation of [place], 120, [place], [place], [id number], [place], [place] [id number] tel: , [place]. tel:[phone] Lowell Mishra Encounter for Juancarlos-2 Rahul In Womens Ultrasound screening 8-201 [place]. 700 Health [place], of [email or web address] weeks 7 Medical PO Box gestation of Center 1522, [place], 120, [place], [place], , [place], [place] [id number] tel: , [place]. tel: [phone] [facility] Encounter for Juancarlos-0 Rahul In Womens suprvsn of normal 1-201 [place]. 700 Health [place], , second 7 Medical PO Box [email or web address] weeks Center 1522, gestation of [place], 120, [place], [place], [id number], [place], [place] [id number] tel: , [place]. tel: [phone] Lowell Mishra Encounter for May-1 Rahul In Womens suprvsn of normal 1-201 [place]. 700 [facility] [place], , first 7 Medical PO Box [email or web address] weeks Center 1522, gestation of [place], 120, [place], [place], [id number], [place], [place] [id number] tel:+ , [place]. tel: [phone] [facility] Endo, nutritional May-1 Rahul In Womens Ultrasound and metab diseases 1-201 [place]. 700 Health [place], comp preg, first 7 Medical [facility], suprvsn of normal [place], , first 120, [place], [email or web address] weeks [place], [id number], gestation of [place], [place] [id number] tel: , [place]. tel: [phone] Lowell Mishra Encounter for May-0 Rahul In Womens suprvsn of normal 9-201 [place]. 700 [facility] [place], , first 7 Medical PO Box [email or web address] weeks Center 1522, gestation of [place], 120, [place], [place], [id number], [place], [place] [id number] tel:+ , [place]. tel: [phone] [facility] [place] Contact w and Apr-2 Rahul In Womens exposure to infect 0-201 [place]. 700 [facility] [place], w a sexl mode of 7 Medical PO Box transmissEncounter Center 1522, for suprvsn of [place], normal , 120, [place], first Mishra, [id number], weeks gestation of [place], [place] [id number] tel: , [place]. tel: [phone] Lowell Mishra 9 weeks gestation Apr-1 Rahul In Womens of 2-201 [place]. 700 Health [place], pregnancyEncounter 7 Medical PO Box for suprvsn of Center 1522, normal , [place], first trimester 120, [place], [place], [id number], [place], [place] [id number] tel:+ , [place]. tel: [phone] Lowell Mishra Generalized anxiety Apr-1 Rahul In Womens disorder9 weeks 0-201 [place]. 700 [place] [facility], gestation of 7 Medical PO Box Center 1522, [place], 120, [place], [place], [id number], [place], [place] [id number] tel:+ , [place]. tel: [phone] Lowell Mishra Encounter for Mar-3 Rahul In Womens suprvsn of normal 0-201 [place]. 700 [place] [facility], , first 7 Medical PO Box trimesterLess than Center 1522, 8 weeks gestation [place], of 120, [place], [place], [id number], [place], [place] [id number] tel:+ , [place]. tel: [phone] Lowell Mishra state, Mar-1 Rahul In Womens incidentalEncounter 6-201 [place]. 700 [place] [facility], for suprvsn of 7 Medical PO Box normal , Center 1522, first trimester8 [place], weeks gestation of 120, [place], [place], , [place], [place] [id number] tel: , [place]. tel: [phone] Lowell Mishra Irregular Mar-0 Gibbs In Womens MensesAbnormal Pap, 8-201 [facility]. Health [place], LSILAbnormal Pap, 7 700 PO Box AGUSEncntr screen [facility] 1522, for infections w [place], sexl mode of [place], transmissEncounter 120, , for test, Mishra, [place] result [place], tel:+ positive [phone] state, , [place]. incidental tel: state, incidental [phone] Lowell Mishra Encntr screen for Aug-2 Gibbs In Womens infections w sexl 2-201 [facility]. Health [place], mode of 6 700 PO Box transmissPap Smear Medical 1522, Screening, Center [place], CervixHigh risk [place], heterosexual 120, [id number], behavior Mish[place], [place], tel:+ [phone] , [place]. tel: [phone] Lowell Mishra Abnormal Pap, Mar-1 Rahul In Womens LSILAbnormal Pap, 1-201 [place]. 700 [employer] PA, LSILEncounter for 6 Medical PO Box test, Center 1522, result negative [place], 120, [place], [place], , [place], [place] [id number] tel:+ , [place]. 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 Health [place], w/o abn 6 700 PO Box findingsEncntr Medical 1522, screen for Center [place], infections w sexl [place], mode of 120, , transmissEncntr [place]ishra, screen for [place], tel:+ infections w sexl [phone] mode of , [place]. transmissPap Smear tel: Screening, Cervix [phone] Lowell Mishra Mar-0 Gibbs In Womens 4-200 [place]. [employer] PA, 8 700 PO Box Medical 1522, [address] [place], 120, [id number], [place], [place], tel: [phone] , [place]. tel: [phone] Family History Family Member Diagnosis Age At Onset Maternal uncle Diabetes mellitus Paternal Grandfather Diabetes mellitus Immunizations Vaccine Date Status Comments Unknown Payers Payer name Insurance type Covered libertarian ID Authorization(s) [place] [facility] Medicare ALWAYS CI [id number] [facility] [id number] Med[employer] CI [id number] Social History Type Description Quantity Date Captured [...] Order: Radiology Order Ultrasound < 14 wks ([id number]) Ordered Future Order: Lab Order Pap Smear With HPV Reflex If ASCUS Ordered (WPMPap1) Future Order: Lab Order Pap Smear With HPV Reflex If ASCUS Ordered (WPMPap1) Future Order: Radiology Order Complete OB Ultrasound > 14 Ordered Weeks ([id number]) Date Type Problem Goal Intervention Status Start [...]
--- OUTSIDE RECORDS SUMMARY | 2017-02-22 11:04 | External Medical Summary | Continuity of Care Document ---
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 tel: [phone] Lowell Mishra Encounter for George-2 Rahul In Womens suprvsn of normal 0-201 [place]. 700 Health [place], , second 7 Medical PO Box [email or web address] weeks Center 1522, gestation of [place], 120, [place], [place], [id number], [place], [place] [id number] tel:+ , [place]. tel: [phone] Lowell Mishra George-1 Rahul In Womens 9-201 [place]. 700 Health PA, 7 Medical PO Box Center 1522, [place], 120, [place], [place], , [place], [place] [id number] tel:+ , [place]. tel: [phone] Lowell Mishra Encounter for George-1 Rahul In Womens suprvsn of normal 2-201 [place]. 700 [facility] [place], , second 7 Medical PO Box [email or web address] weeks Center 1522, gestation of [place], 120, [place], [place], [id number], [place], [place] [id number] tel: , [place]. tel: [phone] Lowell Mishra Encounter for Juancarlos-2 Rahul In Womens suprvsn of normal 8-201 [place]. 700 Health PA, , second 7 Medical PO Box [email or web address] weeks Center 1522, gestation of [place], 120, [place], [place], [id number], [place], [place] [id number] tel: , [place]. tel: [phone] Lowell Mishra Encounter for Juancarlos-2 Rahul In Womens Ultrasound screening 8-201 [place]. 700 Health PA, of weeks 7 Medical PO Box gestation of Center 1522, [place], 120, [place], [place], , [place], [place] [id number] tel: , [place]. tel: [phone] [facility] Encounter for Juancarlos-0 Rahul In Womens suprvsn of normal 1-201 [place]. 700 [facility] [place], , second 7 Medical PO Box [email or web address] weeks Center 1522, gestation of [place], 120, [place], [place], [id number], [place], [place] [id number] tel:+ , [place]. tel: [phone] [facility] Encounter for May-1 Rahul In Womens suprvsn of normal 1-201 [place]. 700 [facility] [place], , first 7 Medical PO Box [email or web address] weeks Center 1522, gestation of [place], 120, [place], [place], [id number], [place], [place] [id number] tel:+ , [place]. tel: [phone] [facility] Endo, nutritional May-1 Rahul In Womens Ultrasound and metab diseases 1-201 [place]. 700 Health PA, comp preg, first 7 Medical PO Box triEncounter for [place] 1522, suprvsn of normal [place], , first 120, [place], [email or web address] weeks Tad, [id number], gestation of [place], [place] [id number] tel: , [place]. tel: [phone] Lowell Mishra 13 weeks gestation May-0 Rahul In Womens of 9-201 [place]. 700 Health PA, pregnancyEncounter 7 Medical PO Box for suprvsn of [place] 1522, normal , [place], first trimester 120, [place], [place], [id number], [place], [place] [id number] tel: , [place]. tel: [phone] [facility] Contact w and Apr-2 Rahul In Womens exposure to infect 0-201 [place]. 700 Health [place], w a sexl mode of 7 Medical PO Box transmissEncounter [place] 1522, for suprvsn of [place], normal , 120, [place], first [email or web address] Mishra, [id number], weeks gestation of [place], [place] [id number] tel: , [place]. tel: [phone] Lowell Mishra 9 weeks gestation Apr-1 Rahul In Womens of 2-201 [place]. 700 Health [place], pregnancyEncounter 7 Medical PO Box for suprvsn of Center 1522, normal , [place], first trimester 120, [place], [place], [id number], [place], [place] [id number] tel:+ , [place]. tel: [phone] Lowell Mishra Generalized anxiety Apr-1 Rahul In Womens disorder9 weeks 0-201 [place]. 700 [facility], gestation of 7 Medical PO Box Center 1522, [place], 120, [place], [place], [id number], [place], [place] [id number] tel: , [place]. tel: [phone] Lowell Mishra Encounter for Mar-3 Rahul In Womens suprvsn of normal 0-201 [place]. 700 [facility], , first 7 Medical PO Box trimesterLess than Center 1522, 8 weeks gestation [place], of 120, [place], [place], [id number], [place], [place] [id number] tel:+ , [place]. tel: [phone] Lowell Mishra state, Mar-1 Rahul In Womens incidentalEncounter 6-201 [place]. 700 [facility], for suprvsn of 7 Medical PO Box normal , Center 1522, first trimester8 [place], weeks gestation of 120, [place], [place], , [place], [place] [address] tel: , [place]. tel: [phone] Lowell Mishra Irregular Mar-0 Gibbs In Womens MensesAbnormal Pap, 8-201 [facility]. Health [place], LSILAbnormal Pap, 7 700 PO Box AGUSEncntr screen [place] [address], for infections w [place], sexl mode of [place]es, transmissEncounter 120, , for test, Mishra, [place] result [place], tel:+ positive [phone] state, , [place]. incidental tel: state, incidental [phone] Lowell Mishra Encntr screen for Aug-2 Gibbs In Womens infections w sexl 2-201 [facility]. Health [place], mode of 6 700 PO Box transmissPap Smear Medical 1522, Screening, Center [place], CervixHigh risk [place], heterosexual 120, [id number], behavior M[place], [place], tel:+ [phone] , [place]. tel: [phone] [facility] Abnormal Pap, Jun- Rahul In Womens LSILAbnormal Pap, - Adrian. 700 [employer] PA, LSILEncounter for 6 Medical PO Box test, Center 1522, result negative [place], 120, [place], [place], [id number], [place], [place] [address] tel: , [place]. 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 Health PA, w/o abn 6 700 PO Box findingsEncntr Medical 1522, screen for Center [place], infections w sexl [place], mode of 120, , transmissEncntr Mishra, screen for [place], tel: infections w sexl [phone] mode of , [place]. transmissPap Smear tel: Screening, Cervix [phone] Lowell Mishra Mar-0 Gibbs In Womens 4-200 [facility] [place]. [employer] PA, 8 700 PO Box Medical 1522, [place] [address] [place], 120, [id number], [place], [place], tel:[phone] , [place]. tel: [phone] Family History Family Member Diagnosis Age At Onset Maternal uncle Diabetes mellitus Paternal Grandfather Diabetes mellitus Immunizations Vaccine Date Status Comments Unknown Payers Payer name Insurance type Covered libertarian ID Authorization(s[facility] ALWAYS CI [id number] [facility] [id number] Medica CI [id number] Social History Type Description Quantity Date Captured [...] Order: Radiology Order Ultrasound < 14 wks ([id number]) Ordered Future Order: Lab Order Pap Smear With HPV Reflex If ASCUS Ordered (WPMPap1) Future Order: Lab Order Pap Smear With HPV Reflex If ASCUS Ordered (WPMPap1) Future Order: Radiology Order Complete OB Ultrasound > 14 Ordered Weeks ([id number]) Date Type Problem Goal Intervention Status Start [...]
--- OUTSIDE RECORDS SUMMARY | 2017-02-22 11:05 | External Medical Summary ---
:1985 Author Organization [employer] Care Team Providers Name Role Phone Mitesh Dickinson Provider Role Unavailable Allergies, Adverse Reactions, Alerts Substance Reaction Event Type N.K.D.A. Info Not Available Non Drug Allergy Problems Problem Type Condition Code Onset Dates Condition Status Assessment Cognitive changes 799.59 Active Problem Hyperlipemia 272.4 Active Medications Medication Code System Code Instructions Start Date End Date Status Dosage alprazolam NDC 61947 0.25 mg orally 2 July 11, 1 tab(s) times a day as 2015 needed for anxiety buspirone NDC 88138 15 mg orally 3 1 tab(s) times a day Procedures Procedure Coding System Code Date Office/Outpatient Visit-Est CPT-4 75057 August 02, 2014 Vital Signs Date/Time: August 02, 2014 Temperature 98.7 F Blood Pressure Diastolic 80 mm Hg Blood Pressure Systolic 108 mm Hg BMI 24.77 Index Height 64.75 in Weight 147.7 lbs Pulse 89 /min Results No Known Results Summary Purpose [employer] Submission
--- OUTSIDE RECORDS SUMMARY | 2017-02-22 11:05 | External Medical Summary ---
:[address] [facility]. Summary purpose CCDA Sent to [facility] Chief Complaint and Reason for Visit Admit Diagnosis 1 SINUS INFECTION Problem list No authorized problems tracked for continuity of care are available for this visit. Encounters No authorized problems tracked for encounter diagnoses are available for this visit. Medications No medications recorded for this patient visit Allergies, adverse reactions, alerts Allergen Category Ingredient Status Reaction Severity Onset No Known Drug No Known Drug No Known Drug Active Allergy Allergy Allergy No Known Food No Known Food No Known Food Active Allergy Allergy Allergy Immunizations No immunizations recorded for this patient visit Relevant diagnostic tests and/or laboratory data No authorized results are available for this patient visit History of procedures No procedures recorded for this patient visit. Functional status Cognitive Status Finding Observation Time Level of Consciousne Alert :20 Oriented to Person Yes :[address] Yes :20 Oriented to Time Yes [id number] Vital signs Type Value Date Respirations 16 :40 Pulse 74 :40 O2 Saturation 96% :40 Systolic Blood Press 108mm/HG :40 Diastolic Blood Pres 59mm/HG :40 Temperature (Fahr) 98.5Degrees :55 Height 66in :50 Weight 140LB :50 Social history Type Value Smoking Status NEVER SMOKER Treatment Plan No treatment plan text is available for this visit. Hospital discharge instructions No discharge instruction text is available for this visit.
--- OUTSIDE RECORDS SUMMARY | 2017-02-22 11:06 | External Medical Summary | Continuity of Care Document ---
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 [facility] [place], , second 7 Medical PO Box [email or web address] weeks Center 1522, gestation of [place], 120, [place], [place], [id number], [place], [place] [id number] tel:+ , [place]. tel: [phone] Lowell Mishra Encounter for George-2 Rahul In Womens suprvsn of normal 0-201 [place]. [facility] [place], , second 7 Medical PO Box [email or web address] weeks Center 1522, gestation of [place], 120, [place], [place], [id number], [place] [id number] tel:+ , [place]. tel: [phone] Lowell Mishra Encounter for George-1 Rahul In Womens suprvsn of normal 2-201 [place]. [facility] [place], , second 7 Medical PO Box [email or web address] weeks Center 1522, gestation of [place], 120, [place], [place], [id number], [place], [place] [id number] tel:+ , [place]. tel: [phone] Lowell Mishra Encounter for Juancarlos-2 Rahul In Womens suprvsn of normal 8-201 [place]. 700 [facility] [place], , second 7 Medical PO Box [email or web address] weeks Center 1522, gestation of [place], 120, [place], [place], [id number], [place] [id number] tel: , [place]. tel: [phone] Lowell Mishra Encounter for Juancarlos-2 Rahul In Womens Ultrasound screening 8-201 [place]. [facility] [place], of [email or web address] weeks 7 Medical PO Box gestation of Center 1522, [place], 120, [place], [place], [id number], [place], [place] [id number] tel:+ , [place]. tel: [phone] Lowell Mishra Encounter for Juancarlos-0 Rahul In Womens suprvsn of normal 1-201 [place]. 700 [facility] [place], , second 7 Medical PO Box [email or web address] weeks Center 1522, gestation of [place], 120, [place], [place], [id number], [place] [id number] tel:+ , [place]. tel:[phone] [facility] Encounter for May-1 Rahul In Womens suprvsn of normal 1-201 [place]. 700 [facility] [place], , first 7 Medical PO Box [email or web address] weeks Center 1522, gestation of [place], 120, [place], [place], [id number], [place], [place] [id number] tel:+ , [place]. tel:[phone] [facility] Endo, nutritional May-1 Rahul In Womens Ultrasound and metab diseases 1-201 [place]. [facility] [place], comp preg, first 7 Medical PO Box triEncounter for [place] 1522, suprvsn of normal [place], , first 120, [place], [email or web address] weeks Tad, , gestation of [place], [place] [id number] tel:+ , [place]. tel: [phone] Lowell Mishra Encounter for May-0 Rahul In Womens suprvsn of normal 9-201 [place]. [facility] [place], , first 7 Medical PO Box [email or web address] weeks Center 1522, gestation of [place], 120, [place], [place], [id number], [place] [id number] tel:+ , [place]. tel:[phone] [facility] Contact w and Apr-2 Rahul In Womens exposure to infect 0-201 [place]. 700 [facility] [place], w a sexl mode of 7 Medical [facility], for suprvsn of [place], normal , 120, [place], first [email or web address] [place], [id number], weeks gestation of [place], [place] [id number] tel:+ , [place]. tel:[phone] Lowell Mishra 9 weeks gestation Apr-1 Rahul In Womens of 2-201 [place]. 700 [facility] [place], pregnancyEncounter 7 Medical PO Box for suprvsn of [place] 1522, normal , [place], first trimester 120, [place], [place], [id number], [place], [place] [id number] tel: , [place]. tel: [phone] [facility] Generalized anxiety Apr-1 Rahul In Womens disorder9 weeks 0-201 [place]. 700 [facility] [place], gestation of 7 Medical PO Box [facility], [place], 120, [place], [place], [id number], [place], [place] tel: , [place]. tel: [phone] [facility] Less than 8 weeks Mar-3 Rahul In Womens gestation of 0-201 [place]. 700 [facility] [place], pregnancyEncounter 7 Medical PO Box for suprvsn of Center 1522, normal , [place], first trimester 120, [place], [place], , [place], [place] tel: , [place]. tel: [phone] [facility] state, Mar-1 Rahul In Womens incidentalEncounter 6-201 [place]. 700 [facility] [place], for suprvsn of 7 Medical PO Box normal , [place] [id number], first trimester8 [place], weeks gestation of 120, [place], [place], , [place], [place] tel: , [place]. tel: [phone] Lowell Mishra Irregular Mar-0 Gibbs In Womens MensesAbnormal Pap, 8-201 [place]. [facility] [place], LSILAbnormal Pap, 7 700 PO Box AGUSEncntr screen [facility] 1522, for infections w [place], sexl mode of [place], transmissEncounter 120, , for test, Mishra, [place] result [place], tel: positive [phone] state, , [place]. incidental tel: state, incidental [phone] [facility] Encntr screen for Aug-2 Gibbs In Womens infections w sexl 2-201 [place]. Health [place], mode of 6 700 PO Box transmissPap Smear [place] [id number], [facility], [facility] CervixHigh risk [place], heterosexual 120, , behavior [place], [place], tel:[phone] , [place]. tel: [phone] Lowell Mishra Abnormal Pap, Mar-1 Rahul In Womens LSILAbnormal Pap, 1-201 [place]. [facility] [place], LSILEncounter for 6 Medical PO Box test, Center 1522, result negative [place], 120, [place], [place], [id number], [place], [place] [id number] tel: , [place]. 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 [facility] [place], w/o abn 6 700 PO Box findingsEncntr Medical 1522, screen for [place], infections w sexl [place], mode of 120, , transmissEncntr Mishra, screen for [place], tel: infections w sexl [phone] mode of , [place]. transmissPap Smear tel: Screening, Cervix [phone] Lowell Mishra Mar-0 Gibbs In Womens 4-200 [facility]. [facility] [place], 8 700 PO Box Medical 1522, [place], [place], 120, [id number], Mishra, DEBBY, tel:[phone] , [place]. tel: [phone] Family History Family Member Diagnosis Age At Onset Maternal uncle Diabetes mellitus Paternal Grandfather Diabetes mellitus Immunizations Vaccine Date Status Comments Unknown Payers Payer name Insurance type Covered constitution party ID [facility]ization([facility] Medicare ALWAYS CI [id number] PRIM [employer] [place] [employer] - Medicaid MC [id number] Medica CI [id number] Social History Type Description Quantity Date Captured Alcohol Use Details No Caffeine Use Details combo 8 oz per day Tobacco Use Status Never smoked tobacco Smoking Status Never smoker Vital Signs Date / Height Weight BMI Pulse Blood Temperature Respiratory Body Head BMI Time: Rate Pressure Rate Surface Circumference percentile Area 171.90 28.6 123/ lbs 0 mm[Hg] 1:28 kg/m PM eter (2) Chief Complaint And Reason For Visit Unknown Chief Complaint And Reason For Visit Reason For Referral Reason For Referral Unknown Plan Of Care Date Type Action Status Appointment Ricky Dupree BOOKED Future Order: Radiology Order Ultrasound < 14 wks ([id number]) Ordered Future Order: Lab Order Pap Smear With HPV Reflex If ASCUS Ordered ([id number]) Future Order: Lab Order Pap Smear With HPV Reflex If ASCUS Ordered ([id number]) Future Order: Radiology Order Complete OB Ultrasound > 14 Ordered Weeks ([id number]) Date Type Problem Goal Intervention Status Start [...]
--- OUTSIDE RECORDS SUMMARY | 2017-02-22 11:06 | External Medical Summary | Continuity of Care Document ---
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 700 [email or web address] [place], , third 7 Medical PO Box weeks Center 1522, gestation of [place], 120, [place], [place], [id number], [place], [place] [id number] tel:+ , [place]. tel: [phone] Lowell Mishra Sep-1 Rahul In Womens 4-201 [place]. 700 [email or web address] [place], 7 Medical PO Box Center 1522, [place], 120, [place], [place], , [place], [place] [id number] tel: , . tel: [phone] Lowell Mishra Abnormal Pap, Sep-0 Rahul In Women LSILAbnormal Pap, 6-201 [place]. 700 [email or web address] [place], LSILEncounter for 7 Medical PO Box suprvsn of normal Center 1522, , third [place], trimesterEncounter 120, [place], for suprvsn of Mishra, [id number], normal , [place], [place] third [email or web address] [id number] tel:+2 weeks gestation of , [place]. [email or web address] weeks tel:+05-19 gestation of [id number] [facility] Aug-3 Rahul In Womens 0-201 [place]. 700 [email or web address] [place], 7 Medical PO Box Center 1522, [place], 120, [place], [place], [id number], [place], [place] [id number] tel:+ , [place]. tel: [phone] [facility] Endo, nutritional Aug-2 Rahul In Womens and metab diseases 3-201 [place]. 700 [facility] [place], comp preg, third 7 Medical PO Box triEncounter for Center 1522, suprvsn of normal [place], , third 120, [place], [id number] weeks Mishra, [id number], gestation of [place], [place] [id number] tel:+ , [place]. tel: [phone] [facility] Encounter for George-2 Rahul In Womens suprvsn of normal 6-201 [place]. 700 [facility] [place], , second 7 Medical PO Box [email or web address] weeks Center 1522, gestation of [place], 120, [place], [place], [id number], [place], [place] [id number] tel:+ , [place]. tel:[phone] [facility] Encounter for George-2 Rahul In Womens suprvsn of normal 0-201 [place]. 700 [facility] [place], , second 7 Medical PO Box [email or web address] weeks Center 1522, gestation of [place], 120, [place], [place], [id number], [place], [place] [id number] tel:+ , [place]. tel: [phone] Lowell Mishra Encounter for George-1 Rahul In Womens suprvsn of normal 2-201 [place]. 700 [facility] [place], , second 7 Medical PO Box [email or web address] weeks Center 1522, gestation of [place], 120, [place], [place], [id number], [place], [place] [id number] tel:+ , [place]. tel:[phone] Lowell Mishra Encounter for Juancarlos-2 Rahul In Womens suprvsn of normal 8-201 [place]. 700 [facility] [place], , second 7 Medical PO Box [email or web address] weeks Center 1522, gestation of [place], 120, [place], [place], [id number], [place], [place] [id number] tel:+2 , [place]. tel: [phone] Lowell Mishra Encounter for Juancarlos-2 Rahul In Womens Ultrasound screening 8-201 [place]. 700 [facility] [place], of [email or web address] weeks 7 Medical PO Box gestation of Center 1522, [place], 120, [place], [place], , [place], [place] [id number] tel: , [place]. tel: [phone] [facility] Encounter for Juancarlos-0 Rahul In Womens suprvsn of normal 1-201 [place]. 700 [facility] [place], , second 7 Medical PO Box [email or web address] weeks Center 1522, gestation of [place], 120, [place], [place], [id number], [place], [place] [id number] tel:+ , [place]. tel: [phone] [facility] Encounter for May-1 Rahul In Womens suprvsn of normal 1-201 [place]. 700 [facility] [place], , first 7 Medical PO Box [email or web address] weeks Center 1522, gestation of [place], 120, [place], [place], , [place], [place] [id number] tel: , [place]. tel: [phone] [facility] Endo, nutritional May-1 Rahul In Womens Ultrasound and metab diseases 1-201 [place]. 700 [facility] [place], comp preg, first 7 Medical PO Box triEncounter for Center 1522, suprvsn of normal [place], , first 120, [place], [email or web address] weeks Tad, , gestation of [place], [place] [id number] tel:+ , [place]. tel: [phone] Lowell Mishra Encounter for May-0 Rahul In Womens suprvsn of normal 9-201 [place]. 700 [facility] [place], , first 7 Medical PO Box [email or web address] weeks Center 1522, gestation of [place], 120, [place], [place], [id number], [place], [place] [id number] tel: , [place]. tel: [phone] Lowell Mishra Encounter for Apr-2 Rahul In Womens suprvsn of normal 0-201 [place]. 700 [facility] [place], , first 7 Medical PO Box trimesterContact w Center 1522, and exposure to [place], infect w a sexl 120, [place], mode of Tad, , weeks gestation of [place], [place] [id number] tel: , [place]. tel: [phone] Lowell Mishra Encounter for Apr-1 Rahul In Womens suprvsn of normal 2-201 [place]. 700 [facility] [place], , first 7 Medical PO Box trimester9 weeks Center 1522, gestation of [place], 120, [place], [place], [id number], [place], [place] [id number] tel: , [place]. tel: [phone] Lowell Mishra Generalized anxiety Apr-1 Rahul In Womens disorder9 weeks 0-201 [place]. 700 [facility] [place], gestation of 7 Medical PO Box Center 1522, [place], 120, [place], [place], [id number], [place], [place] [id number] tel: , [place]. tel: [phone] Lowell Mishra Encounter for Mar-3 Rahul In Womens suprvsn of normal 0-201 [place]. 700 [facility] [place], , first 7 Medical PO Box trimesterLess than Center 1522, 8 weeks gestation [place], of 120, [place], [place], [id number], [place], [place] [id number] tel: , [place]. tel: [phone] Lowell Mishra state, Mar-1 Rahul In Womens incidentalEncounter 6-201 [place]. 700 [facility] [place], for suprvsn of 7 Medical PO Box normal , Center 1522, first trimester8 [place], weeks gestation of 120, [place], [place], [id number], [place], [place] [id number] tel: , [place]. tel: [phone] Lowell Mishra Irregular Mar-0 Gibbs In Womens MensesAbnormal Pap, 8-201 [facility]. Health [place], LSILEncntr screen 7 700 PO Box for infections w Medical 1522, sexl mode of [place], transmissAbnormal [place], Pap, AGUS 120, [id number], state, Mish[place], [place] incidental [place], tel: state, [phone] incidentalEncmission valley medical centerer , [place]. for test, tel: result positive [phone] [facility] Veliz screen for Aug-2 Gibbs In Womens infections w sexl 2-201 [place]. [facility] [place], mode of 6 700 PO Box transmissPap Smear Medical 1522, Screening, [place], CervixHigh risk [place], heterosexual 120, [id number], behavior [place], [place], tel:[phone] , [place]. tel: [phone] [facility] Abnormal Pap, Mar-1 Rahul In Womens LSILAbnormal Pap, 1-201 [place]. 700 [facility] [place], LSILEncounter for 6 Medical PO Box test, Center 1522, result negative [place], 120, [place], [place], , [place], [place] [id number] tel: , [place]. tel: [phone] [facility] [place] screen for Mar-0 Gibbs In Womens infections w sexl 2-201 [place]. 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 Screening, Cervix tel: [phone] [facility] Mar-0 Gibbs In Womens 4-200 [place]. [facility] [place], 8 700 PO Box Medical 1522, [address] [place], 120, [id number], M[place], [place], tel:[phone] , [place]. tel: [phone] Family History Family Member Diagnosis Age At Onset Maternal uncle Diabetes mellitus Paternal Grandfather Diabetes mellitus Immunizations Vaccine Date Status Comments Unknown Payers Payer name Insurance type Covered constitution party ID Authorization(s) [place] ([employer]) Medicare ALWAYS CI [id number] PRIM [employer] [place] [employer] - Medicaid MC [id number] Medica CI [id number] Social History Type Description Quantity Date Captured [...] Order: Radiology Order Ultrasound < 14 wks ([id number]) Ordered Future Order: Lab Order Pap Smear With HPV Reflex If ASCUS Ordered ([id number]) Future Order: Lab Order Pap Smear With HPV Reflex If ASCUS Ordered ([id number]) Future Order: Radiology Order Complete OB Ultrasound > 14 Ordered Weeks ([id number]) Date Type Problem Goal Intervention Status Start [...]
--- OUTSIDE RECORDS SUMMARY | 2017-02-22 11:06 | External Medical Summary ---
:1985 Author Organization [employer] Care Team Providers Name Role Phone Mitesh Dickinson Provider Role Unavailable Allergies No Known Allergies Problems Problem Type Condition Code Onset Dates Condition Status Problem Hyperlipemia 272.4 Active Medications Medication Code System Code Instructions Start Date End Date Status Dosage alprazolam [facility] 23584 0.25 mg orally 2 August 03, 1 tab(s) times a day as 2015 needed for anxiety Results No Known Results Summary Purpose [employer] Submission
--- OUTSIDE RECORDS SUMMARY | 2017-02-22 11:06 | External Medical Summary | Continuity of Care Document ---
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) - (routine) w/o abn findings Abnormal Pap, LSIL Abnormal Pap, LSIL Encounter for test, result - negative Pap Smear Screening, Cervix Encntr screen for infections w sexl mode of transmiss High risk heterosexual behavior Contact w and [...] Procedures Procedure Date OB Visit No Charge Colposcopy Of The Cervix Including Upper/adjacent Vagina Results Test Name Date and Time Measure Units Reference Range Abnormal Flag Comments Unknown Advance Directives Directive Yes / No Effective Date File Name Unknown Encounters Encounter Practice Location Reason(s) Diagnoses Date Provider Care Description For Visit Team Members Lowell Mishra Encounter for Sep-2 Rahul In Womens suprvsn of normal 2-[address] [place] [facility] [place], , third 7 Medical PO [address] [email or web address] weeks Center 1522, gestation of [place], 120, [place], [place], [id number], [place], [place] [id number] tel:+ , [place]. tel: [phone] Lowell Mishra Encounter for Sep-1 Rahul In Womens suprvsn of normal 9-[address] [place] [facility] [place] [place], , third 7 Medical PO Box [email or web address] weeks Center 1522, gestation of [place], 120, [place], [place], [id number], [place], [place] [id number] tel: , [place]. tel: [phone] Lowell Mishra Sep-1 Rahul In Womens 4-[address] [place] [facility] [place], 7 Medical PO Box Center 1522, [place], 120, [place], [place], [id number], [place], [place] [id number] tel:2 , [place]. tel: [phone] Lowell Mishra Abnormal Pap, Sep-0 Rahul In Womens LSILAbnormal Pap, 6-201 [place]. [facility], LSILEncounter for 7 Medical PO Box suprvsn of normal Center 1522, , third [place], trimesterEncounter 120, [place], for suprvsn of [place], [id number], normal , [place], [place] third [email or web address] [id number] tel:[phone] weeks gestation of , [place]. [email or web address] weeks tel:+-31 gestation of [id number] [facility] Endo, nutritional Aug-2 Rahul In Womens and metab diseases 3-201 [place]. [facility] [place], comp preg, third 7 Medical PO Box triEncounter for Center 1522, suprvsn of normal [place], , third 120, [place], [email or web address] weeks Mishra, , gestation of [place], [place] [id number] tel:+[phone] , [place]. tel:[phone] [facility] Encounter for George-2 Rahul In Womens suprvsn of normal 6-201 [place]. [facility] [place], , second 7 Medical PO Box [email or web address] weeks Center 1522, gestation of [place], 120, [place], [place], [id number], [place], [place] [id number] tel:+ , [place]. tel:[phone] Lowell Mishra Encounter for George-2 Rahul In Womens suprvsn of normal 0-201 [place]. [facility] [place], , second 7 Medical PO Box weeks Center 1522, gestation of [place], 120, [place], [place], , [place], [place] [id number] tel:+ , [place]. tel:[phone] Lowell Mishra Encounter for George-1 Rahul In Womens suprvsn of normal 2-201 [place]. [facility] [place], , second 7 Medical PO Box weeks Center 1522, gestation of [place], 120, [place], [place], [id number], [place] [id number] tel:+[phone] , [place]. tel:[phone] Lowell Mishra Encounter for Juancarlos-2 Rahul In Womens suprvsn of normal 8-201 [place]. [facility] [place], , second 7 Medical PO Box [email or web address] weeks Center 1522, gestation of [place], 120, [place], [place], [id number], [place], [place] [id number] tel:+ , [place]. tel: [phone] [facility] Encounter for Juancarlos-2 Rahul In Womens Ultrasound screening 8-201 [place]. [facility] [place], of [email or web address] weeks 7 Medical PO Box gestation of Center 1522, [place], 120, [place], [place], [id number], [place], [place] [id number] tel:+ , [place]. tel: [phone] [facility] Encounter for Juancarlos-0 Rahul In Womens suprvsn of normal 1-201 [place]. [facility] [place], , second 7 Medical PO Box [email or web address] weeks Center 1522, gestation of [place], 120, [place], [place], [id number], [place], [place] [id number] tel:+ , [place]. tel: [phone] Lowell Mishra Encounter for May-1 Rahul In Womens suprvsn of normal 1-201 [place]. [facility] [place], , first 7 Medical PO Box [email or web address] weeks Center 1522, gestation of [place], 120, [place], [place], , [place], [place] [id number] tel:+ , [place]. tel: [phone] Lowell Mishra Endo, nutritional May-1 Rahul In Womens Ultrasound and metab diseases 1-201 [place]. [facility] [place], comp preg, first 7 Medical PO Box triEncounter for Center 1522, suprvsn of normal [place], , first 120, [place], [email or web address] weeks Mishra, , gestation of [place], [place] [id number] tel:+ , [place]. tel: [phone] Lowell Mishra Encounter for May-0 Rahul In Womens suprvsn of normal 9-201 [place]. [facility] [place], , first 7 Medical PO Box [email or web address] weeks Center 1522, gestation of [place], 120, [place], [place], [id number], [place], [place] [id number] tel:[phone] , [place]. tel: [phone] [facility] Contact w and Apr-2 Rahul In Womens exposure to infect 0-201 [place]. [facility] [place], w a sexl mode of 7 Medical PO Box [email or web address] weeks Center 1522, gestation of [place], pregnancyEncounter 120, [place], for suprvsn of [place], [id number], normal , [place], [place] first trimester tel: , [place]. tel: [phone] [facility] Encounter for Apr-1 Rahul In Womens suprvsn of normal 2-201 [place]. [facility] [place], , first 7 Medical PO Box trimester9 weeks Center 1522, gestation of [place], 120, [place], [place], [id number], [place], [place] tel: , [place]. tel: [phone] [facility] Generalized anxiety Apr-1 Rahul In Womens disorder9 weeks 0-201 [place]. [facility] [place], gestation of 7 Medical PO Box Center 1522, [place], 120, [place], [place], , [place], [place] [id number] tel: , [place]. tel: [phone] [facility] Less than 8 weeks Mar-3 Rahul In Womens gestation of 0-201 [place]. [facility] PO Box for suprvsn of Center 1522, normal , [place], first trimester 120, [place], [place], [id number], [place], [place] tel: , [place]. tel: [phone] [facility] state, Mar-1 Rahul In Womens incidental8 weeks 6-201 [place]. [facility] [place], gestation of 7 Medical PO Box pregnancyEncounter Center 1522, for suprvsn of [place], normal , 120, [place], first trimester [place], [id number], [place], [place] [id number] tel: , . tel: [phone] [facility] Irregular Mar-0 Gibbs In Womens MensesAbnormal Pap, 8-201 [place] [place], LSILAbnormal Pap, 7 700 PO Box AGUSEncntr screen Medical 1522, for infections w [facility], sexl mode of [place], transmissEncounter 120, , for test, [place], result [place], tel: positive [phone] [facility], , [place]. incidental tel: state, incidental [phone] [facility] Pap Smear Aug-2 Gibbs In Womens Screening, 2 [place]. [facility] [place], CervixEncntr screen 6 700 PO Box for infections w Medical 1522, sexl mode of [place], transmissHigh risk [place], heterosexual 120, [id number], behavior [place], [place], tel:[phone] , [place]. tel: [phone] [facility] Abnormal Pap, Mar-1 Rahul In Womens LSILAbnormal Pap, [place]. [facility] [place], LSILEncounter for 6 Medical PO Box test, [place], result negative [place], 120, [place], [place], , [place], [place] [id number] tel: , [place]. tel: [phone] [facility] Pap Smear Mar-0 Gibbs In Womens Screening, [place]. [facility] [place], CervixEncntr screen 6 700 PO Box for infections w Medical 1522, sexl mode of [place], transmissEncntr [place], screen for 120, , infections w sexl [place], mode of [place], tel: transmissEncntr for proposal rep exam (general) , [place]. (routine) w/o abn tel: findings [phone] [facility] Mar-0 Gibbs In Womens 4-200 [place]. [facility], 8 700 PO Box Medical 1522, [facility], [place], 120, [id number], [place], [place], tel: [phone] , [place]. tel: [phone] Family History Family Member Diagnosis Age At Onset Maternal uncle Diabetes mellitus Paternal Grandfather Diabetes mellitus Immunizations Vaccine Date Status Comments Unknown Payers Payer name Insurance type Covered democrat ID Authorization(s) [place] ([employer]ra) Medicare ALWAYS CI [id number] PRIM [employer] - Medicaid MC [id number] Medica CI [id number] Social History Type Description Quantity Date Captured Alcohol Use Details No Caffeine Use Details Unknown Tobacco Use Status Unknown Smoking Status Never smoker Vital Signs Date / Height Weight BMI Pulse Blood Temperature Respiratory Body Head BMI Time: Rate Pressure Rate Surface Circumference percentile Area 179.10 29.8 119/71 lbs 0 mm[Hg] 1:23 kg/m PM eter (2) Chief Complaint And Reason For Visit Unknown Chief Complaint And Reason For Visit Reason For Referral Reason For Referral Unknown Plan Of Care Date Type Action Status Appointment Kristal Dupree BOOKED Appointment Kristal Dupree BOOKED Appointment Kristal Dupree BOOKED Future Order: Radiology Order Ultrasound < 14 wks ([id number]) Ordered Future Order: Lab Order Pap Smear With HPV Reflex If ASCUS Ordered ([id number]) Future Order: Lab Order Pap Smear With HPV Reflex If ASCUS Ordered (WPMPap1) Future Order: Radiology Order Complete OB Ultrasound > 14 Ordered Weeks ([id number]) Date Type Problem Goal Intervention Status Start [...]
--- OUTSIDE RECORDS SUMMARY | 2017-02-22 11:06 | External Medical Summary ---
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
--- OUTSIDE RECORDS SUMMARY | 2017-02-22 11:06 | External Medical Summary | Continuity of Care Document ---
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 [place] [address], pregnancyEncounter 7 Medical PO Box for suprvsn of Center 1522, normal , [place], third trimester 120, [place], [place], [id number], [place], [place] [id number] tel: , [place]. tel: [phone] Lowell Mishra Encounter for Sep-2 Rahul In Womens suprvsn of normal 2-[address], , third 7 Medical PO Box [email or web address] weeks Center 1522, gestation of [place], 120, [place], [place], [id number], [place], [place] [id number] tel:2 , [place]. tel: [phone] Lowell Mishra Sep-2 Rahul In Womens 2-[address], 7 Medical PO Box Center 1522, [place], 120, [place], [place], [id number], [place], [place] [id number] tel:2 , [place]. tel: [phone] Lowell Mishra Encounter for Sep-1 Rahul In Womens suprvsn of normal 9-201 [place]. [facility], , third 7 Medical PO Box [email or web address] weeks Center 1522, gestation of [place], 120, [place], [place], [id number], [place], [place] [id number] tel:+ , [place]. tel: [phone] [facility] Sep-1 Rahul In Womens 4-201 [place]. [facility], 7 Medical PO Box Center 1522, [place], 120, [place], [place], [id number], [place], [place] tel:+ , [place]. tel: [phone] [facility] Abnormal Pap, Sep-0 Rahul In Womens LSILAbnormal Pap, 6-201 [place]. [facility], [email or web address] weeks 7 Medical PO Box gestation of Center 1522, [email or web address] weeks [place], gestation of 120, [place], pregnancyEncounter [place], , for suprvsn of [place], [place] normal , [id number] tel: third , [place]. trimesterEncounter tel: for suprvsn of [id number] normal , third trimester [facility] Endo, nutritional Aug-2 Rahul In Womens and metab diseases 3-201 [place]. [facility], comp preg, third 7 Medical PO Box triEncounter for Center 1522, suprvsn of normal [place], , third 120, [place], [email or web address] weeks Mishra, , gestation of [place], [place] [id number] tel: , [place]. tel: [phone] Lowell Mishra 24 weeks gestation George-2 Rahul In Womens of 6-201 [place]. [facility], pregnancyEncounter 7 Medical PO Box for suprvsn of Center 1522, normal , [place], second trimester 120, [place], [place], [id number], [place], [place] [id number] tel: , [place]. tel: [phone] [facility] Encounter for George-2 Rahul In Womens suprvsn of normal 0-201 [facility], , second 7 Medical PO Box [email or web address] weeks Center 1522, gestation of [place], 120, [place], [place], [id number], [place], [place] [id number] tel:+ , [place]. tel: [phone] [facility] Encounter for George-1 Rahul In Womens suprvsn of normal 2-201 [place]. [facility], , second 7 Medical PO Box [email or web address] weeks Center 1522, gestation of [place], 120, [place], [place], [id number], [place], [place] [id number] tel:+ , [place]. tel: [phone] [facility] Encounter for Juancarlos-2 Rahul In Womens suprvsn of normal 8-201 [place]. [facility], , second 7 Medical PO Box weeks Center 1522, gestation of [place], 120, [place], [place], [id number], [place], [place] [id number] tel:+ , [place]. tel: [phone] Lowell Mishra 20 weeks gestation Juancarlos-2 Rahul In Womens Ultrasound of 8-201 [place]. [facility], pregnancyEncounter 7 Medical PO Box for Center 1522, screening of mother [place], 120, [place], [place], , [place], [place] [id number] tel:+ , [place]. tel: [phone] Lowell Mishra Encounter for Juancarlos-0 Rahul In Womens suprvsn of normal 1-201 [place]. [facility], , second 7 Medical PO Box [email or web address] weeks Center 1522, gestation of [place], 120, [place], [place], [id number], [place], [place] [id number] tel:+ , [place]. tel: [phone] Lowell Mishra Encounter for May-1 Rahul In Womens suprvsn of normal 1-201 [place]. [facility], , first 7 Medical PO Box [email or web address] weeks Center 1522, gestation of [place], 120, [place], [place], [id number], [place], [place] [id number] tel:+ , [place]. tel: [phone] Lowell Mishra Endo, nutritional May-1 Rahul In Womens Ultrasound and metab diseases 1-201 [place]. [facility], comp preg, first 7 Medical PO Box triEncounter for Center 1522, suprvsn of normal [place], , first 120, [place], [email or web address] weeks Mishra, [id number], gestation of [place], [place] [id number] tel:+ , [place]. tel:[phone] [facility] Encounter for May-0 Rahul In Womens suprvsn of normal 9-201 [place]. [facility], , first 7 Medical PO Box [email or web address] weeks Center 1522, gestation of [place], 120, [place], [place], [id number], [place], [place] [id number] tel:+ , [place]. tel: [phone] [facility] Contact w and Apr-2 Rahul In Womens exposure to infect 0-201 [place]. [facility], w a sexl mode of 7 Medical PO Box [facility], for suprvsn of [place], normal , 120, [place], first [email or web address] Mishra, [id number], weeks gestation of [place], [place] [id number] tel:+ , [place]. tel: [phone] Lowell Mishra Encounter for Apr-1 Rahul In Womens suprvsn of normal 2-201 [place]. [facility], , first 7 Medical PO Box trimester9 weeks Center 1522, gestation of [place], 120, [place], [place], [id number], [place], [place] [id number] tel:+ , [place]. tel:[phone] Lowell Mishra Generalized anxiety Apr-1 Rahul In Womens disorder9 weeks 0-201 [place]. [facility], gestation of 7 Medical PO Box Center 1522, [place], 120, [place], [place], [id number], [place], [place] [id number] tel:+ , [place]. tel: [phone] Lowell Mishra Encounter for Mar-3 Rahul In Womens suprvsn of normal 0-201 [place]. [facility], , first 7 Medical PO Box trimesterLess than Center 1522, 8 weeks gestation [place], of 120, [place], [place], , [place], [place] [id number] tel: , [place]. tel: [phone] [facility] state, Mar-1 Rahul In Womens incidental8 weeks 6-201 [place]. 700 [facility], gestation of 7 Medical PO Box pregnancyEncounter [place] 1522, for suprvsn of [place], normal , 120, [place], first trimester M[place], , [place], [place] [id number] tel: , [place]. tel: [phone] [facility] Irregular Mar-0 Gibbs In Womens MensesAbnormal Pap, 8-201 [place]. [facility], LSILAbnormal Pap, 7 700 PO Box AGUSEncntr screen [facility] 1522, for infections w [place], sexl mode of [place], transmissEncounter 120, , for test, [place], result [place], tel: positive [phone] state, , [place]. incidental tel: state, incidental [phone] [facility] Encntr screen for Aug-2 Gibbs In Womens infections w sexl 2-201 [place]. [facility], mode of 6 700 PO Box transmissPap Smear [place] [address], Screening, [facility], CervixHigh risk [place], heterosexual 120, , behavior [place], [place], tel:[phone] , [place]. tel: [phone] [facility] Abnormal Pap, Mar-1 Rahul In Womens LSILAbnormal Pap, 1-201 [place]. 700 [facility], LSILEncounter for 6 Medical PO Box test, [place] 1522, result negative [place], 120, [place], [place], , [place], [place] [id number] tel: , [place]. tel: [phone] [facility] Encntr for area attendant exam Mar-0 Gibbs In Womens (general) (routine) 2-201 [place]. [facility] [place], w/o abn 6 700 PO Box findingsEncntr Medical 1522, screen for [place], infections w sexl , [place], mode of 120, [id number], transmissEncntr [place], [place] screen for [place], tel: infections w sexl [phone] mode of , [place]. transmissPap Smear tel: Screening, Cervix [phone] Lowell Mishra Mar-0 Gibbs In Womens 4-200 [place]. [facility] [place], 8 700 PO Box Medical 1522, [place], [place], 120, [id number], [place], [place], tel: [phone] , [place]. tel: [phone] Family History Family Member Diagnosis Age At Onset Maternal uncle Diabetes mellitus Paternal Grandfather Diabetes mellitus Immunizations Vaccine Date Status Comments Unknown Payers Payer name Insurance type Covered alliance party ID Authorization(s) [employer] ([employer]vantra) Medicare [facility] CI [id number] [facility] [id number] Medica CI [id number] Social History Type Description Quantity Date Captured [...] Order: Radiology Order Ultrasound < 14 wks ([id number]) Ordered Future Order: Lab Order Pap Smear With HPV Reflex If ASCUS Ordered (WPMPap1) Future Order: Lab Order Pap Smear With HPV Reflex If ASCUS Ordered (WPMPap1) Future Order: Radiology Order Complete OB Ultrasound > 14 Ordered Weeks ([id number]) Date Type Problem Goal Intervention Status Start [...]
--- OUTSIDE RECORDS SUMMARY | 2017-02-22 11:06 | External Medical Summary ---
:1985 Author Organization e[employer]Works Care Team Providers Name Role Phone Lala Henriquez Provider Role Unavailable Allergies, Adverse Reactions, Alerts Substance Reaction Event Type N.K.D.A. 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 Medications Medication Code System Code Instructions Start Date End Date Status Dosage Acyclovir [facility] [address] 400 MG Orally Jan 21, 1 tablet -01 Twice a day 2015 Procedures Procedure Coding System Code Date COMPREHEN METABOLIC PANEL CPT-4 22407 Jan 22, 2016 URINALYSIS, AUTO, W/O SCOPE CPT-4 09049 Jan 22, 2016 COMPLETE CBC W/AUTO DIFF WBC CPT-4 25739 Jan 22, 2016 Office Visit, New Pt., Level 3 CPT-4 34366 Jan 22, 2016 Vital Signs Date/Time: Jan 22, 2016 BMI 22.45 Index Weight 141.2 lbs Height 66.5 in Blood Pressure Diastolic 72 mm Hg Blood Pressure Systolic 109 mm Hg Temperature 98.6 F Cardiac Monitoring Heart Rate 60 /min Results Name Result Date Reference Range Unit Abnormality Flag Urinalysis (UA) (GM) ----PRO neg 20160122 ----pH 7.5 20160122 ----BLO tr-lysed 20160122 ----SG 1.020 20160122 ----KET neg 20160122 ----NIT neg 20160122 ----COLOR yellow 20160122 ----URO 0.2 20160122 ----CLARITY slightly cloudy 20160122 ----GLU neg 20160122 ----ANA neg 20160122 ----JAJA neg 20160122 Summary Purpose eClinicalWorks Submission
--- OUTSIDE RECORDS SUMMARY | 2017-02-22 11:06 | External Medical Summary | Continuity of Care Document ---
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 tel: [phone] Lowell Mishra Encounter for George-2 Rahul In Womens suprvsn of normal 0-201 [place]. 700 [facility] [place], , second 7 Medical PO Box [email or web address] weeks Center 1522, gestation of [place], 120, [place], [place], , [place], [place] [id number] tel:+ , [place]. tel: [phone] Lowell Mishra Encounter for George-1 Rahul In Womens suprvsn of normal 2-201 [place]. 700 [facility] [place], , second 7 Medical PO Box [email or web address] weeks Center 1522, gestation of [place], 120, [place], [place], [id number], [place], [place] [id number] tel:+ , [place]. tel: [phone] Lowell Mishra Encounter for Juancarlos-2 Rahul In Womens suprvsn of normal 8-201 [place]. 700 [facility] [place], , second 7 Medical PO Box [email or web address] weeks Center 1522, gestation of [place], 120, [place], [place], , [place], [place] [id number] tel:+ , [place]. tel: [phone] Lowell Mishra Encounter for Juancarlos-2 Rahul In Womens Ultrasound screening 8-201 [place]. 700 [facility] [place], of [email or web address] weeks 7 Medical PO Box gestation of Center 1522, [place], 120, [place], [place], , [place], [place] [id number] tel:+ , [place]. tel: [phone] Lowell Mishra Encounter for Juancarlos-0 Rahul In Womens suprvsn of normal 1-201 [place]. 700 [facility] [place], , second 7 Medical PO Box [email or web address] weeks Center 1522, gestation of [place], 120, [place], [place], [id number], [place], [place] [id number] tel:+ , [place]. tel:[phone] [facility] Encounter for May-1 Rahul In Womens suprvsn of normal 1-201 [place]. 700 [facility] [place], , first 7 Medical PO Box [email or web address] weeks Center 1522, gestation of [place], 120, [place], [place], [id number], [place], [place] [id number] tel:+ , [place]. tel: [phone] [facility] Endo, nutritional May-1 Rahul In Womens Ultrasound and metab diseases 1-201 [place]. 700 [facility] [place], comp preg, first 7 Medical PO Box triEncounter for Center 1522, suprvsn of normal [place], , first 120, [place], [email or web address] weeks Tad, , gestation of [place], [place] [id number] tel:+ , [place]. tel: [phone] Lowell Mishra Encounter for May-0 Rahul In Womens suprvsn of normal 9-201 [place]. 700 [facility] [place], , first 7 Medical PO Box [email or web address] weeks Center 1522, gestation of [place], 120, [place], [place], , [place], [place] [id number] tel:+ , [place]. tel: [phone] Associates aTd Contact w and Apr-2 Rahul In Womens exposure to infect 0-201 [place]. 700 [facility] [place], w a sexl mode of 7 Medical [facility], for suprvsn of [place], normal , 120, [place], first [email or web address] [place], [id number], weeks gestation of [place], [place] [id number] tel:+ , [place]. tel:[phone] Lowell Mishra 9 weeks gestation Apr-1 Rahul In Womens of 2-201 [place]. 700 [facility] [place], pregnancyEncounter 7 Medical PO Box for suprvsn of [facility]22, normal , [place], first trimester 120, [place], [place], [id number], [place], [place] [id number] tel: , [place]. tel: [phone] [facility] Generalized anxiety Apr-1 Rahul In Womens disorder9 weeks 0-201 [place]. [facility] Health [place], gestation of 7 Medical PO Box Center [facility], [place], 120, [place], [place], [id number], [place], [place] [id number] tel: , [place]. tel: [phone] [facility] Less than 8 weeks Mar-3 Rahul In Womens gestation of 0-[address], pregnancyEncounter 7 Medical PO Box for suprvsn of Center 1522, normal , [place], first trimester 120, [place], [place], , [place], [place] tel: , [place]. tel: [phone] [facility] state, Mar-1 Rahul In Womens incidentalEncounter 6-[address], for suprvsn of 7 Medical PO Box normal , [place] [id number], first trimester8 [place], weeks gestation of 120, [place], [place], , [place], [place] [id number] tel: , [place]. tel: [phone] Lowell Mishra Irregular Mar-0 Gibbs In Womens MensesAbnormal Pap, 8-201 [facility]. Health [place], LSILAbnormal Pap, 7 700 PO Box AGUSEncntr screen [facility] 1522, for infections w [place] [facility] Cylinder, sexl mode of [place], transmissEncounter 120, , for test, Mishra, [place] result [place], tel: positive [phone] state, , [place]. incidental tel: state, incidental [phone] [facility] Encntr screen for Aug-2 Gibbs In Womens infections w sexl 2-201 [facility]. Health [place], mode of 6 700 PO Box transmissPap Smear [place] [id number], Screening, [facility], CervixHigh risk [place], heterosexual 120, , behavior [place], [place], tel:[phone] , [place]. tel: [phone] Lowell Mishra Abnormal Pap, Mar-1 Rahul In Womens LSILAbnormal Pap, 1-201 [place]. 700 [facility], LSILEncounter for 6 Medical PO Box test, Center 1522, result negative [place], 120, [place], [place], [id number], [place], [place] [id number] tel: , [place]. 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 [facility], w/o abn 6 700 PO Box findingsEncntr Medical 1522, screen for [facility] Sanam, infections w sexl [place], mode of 120, [id number], transmissEncntr Mishra, screen for [place], tel: infections w sexl [phone] mode of , [place]. transmissPap Smear tel: Screening, Cervix [phone] Lowell Mishra Mar-0 Gibbs In Womens 4-200 Mary Beth. [facility], 8 700 PO Box Medical 1522, [place] [facility] [address] [place], 120, [id number], [place], [place], tel: [phone] [address] , [place]. tel: [phone] Family History Family Member Diagnosis Age At Onset Maternal uncle Diabetes mellitus Paternal Grandfather Diabetes mellitus Immunizations Vaccine Date Status Comments Unknown Payers Payer name Insurance type Covered democrat ID Authorization(s) [place] ([employer]) Medicare ALWAYS CI [id number] PRIM [employer] [place] [employer] - Medicaid [place] [id number] Medica CI [id number] Social History Type Description Quantity Date Captured Alcohol Use Details No Caffeine Use Details Unknown Tobacco Use Status Unknown Smoking Status Never smoker Vital Signs Date / Height Weight BMI Pulse Blood Temperature Respiratory Body Head BMI Time: Rate Pressure Rate Surface Circumference percentile Area 170.70 28.4 /2017 lbs 0 mm[Hg] 2:00 kg/m PM eter (2) Chief Complaint And Reason For Visit Unknown Chief Complaint And Reason For Visit Reason For Referral Reason For Referral Unknown Plan Of Care Date Type Action Status Appointment iRcky Dupree BOOKED Future Order: Radiology Order Ultrasound < 14 wks ([id number]) Ordered Future Order: Lab Order Pap Smear With HPV Reflex If ASCUS Ordered ([id number]) Future Order: Lab Order Pap Smear With HPV Reflex If ASCUS Ordered ([id number]) Future Order: Radiology Order Complete OB Ultrasound > 14 Ordered Weeks ([id number]) Date Type Problem Goal Intervention Status Start [...]
--- OUTSIDE RECORDS SUMMARY | 2017-02-22 11:09 | External Medical Summary | Continuity of Care Document ---
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 [place], , third 7 Medical PO Box [email or web address] weeks Center 1522, gestation of [place], 120, [place], [place], , [place], [place] [id number] tel:+ , [place]. tel: [phone] Lowell Mishra Encounter for Sep-2 Rahul In Womens suprvsn of normal 2-201 [place]. [place], , third 7 Medical PO Box [email or web address] weeks Center 1522, gestation of [place], 120, [place], [place], [id number], [place], [place] [id number] tel: , [place]. tel: [phone] Lowell Mishra Encounter for Sep-1 Rahul In Womens suprvsn of normal 9-201 [place]. [place], , third 7 Medical PO Box [email or web address] weeks Center 1522, gestation of [place], 120, [place], [place], , [place], [place] [id number] tel: , [place]. tel: [phone] Lowell Mishra Sep-1 Rahul In Womens 8-201 [place]. 700 [facility] [place], 7 Medical PO Box Center 1522, [place], 120, [place], [place], [id number], [place], [place] [id number] tel:+ , [place]. tel: [phone] Lowell Mishra Sep-1 Rahul In Womens 4-201 [place]. 700 [facility] [place], 7 Medical PO Box Center 1522, [place], 120, [place], [place], [id number], [place], [place] [id number] tel: , [place]. tel: [phone] Lowell Mishra Abnormal Pap, Sep-0 Rahul In Womens LSILAbnormal Pap, 6-201 [place]. 700 [facility] [place], [email or web address] weeks 7 Medical PO Box gestation of Center 1522, [email or web address] weeks [place], gestation of 120, [place], pregnancyEncounter Mishra, , for suprvsn of [place], [place] normal , [id number] tel: third , [place]. trimesterEncounter tel: for suprvsn of [phone] normal , third trimester [facility] Endo, nutritional Aug-2 Rahul In Womens and metab diseases 3-201 [place]. 700 [facility] [place], comp preg, third 7 Medical PO Box tri28 weeks Center 1522, gestation of [place], pregnancyEncounter 120, [place], for suprvsn of [place], [id number], normal , [place], [place] third trimester tel: , . tel: [phone] Lowell Mishra Encounter for George-2 Rahul In Womens suprvsn of normal 6-201 [place]. 700 [facility] [place], , second 7 Medical PO Box [email or web address] weeks Center 1522, gestation of [place], 120, [place], [place], [id number], [place], [place] [id number] tel: , [place]. tel: [phone] Lowell Mishra Encounter for George-2 Rahul In Womens suprvsn of normal 0-201 [place]. 700 [facility] [place], , second 7 Medical PO Box [email or web address] weeks Center 1522, gestation of [place], 120, [place], [place], [id number], [place], [place] [id number] tel: , [place]. tel: [phone] Lowell Mishra 22 weeks gestation George-1 Rahul In Womens of 2-201 [place]. 700 [facility] [place], pregnancyEncounter 7 Medical PO Box for suprvsn of Center 1522, normal , [place], second trimester 120, [place], [place], , [place], [place] [id number] tel: , [place]. tel: [phone] Lowell Mishra Encounter for Juancarlos-2 Rahul In Womens suprvsn of normal 8-201 [place]. 700 [facility], , second 7 Medical PO Box [email or web address] weeks Center 1522, gestation of [place], 120, [place], [place], , [place], [place] [id number] tel: , . tel: [phone] Lowell Mishra 20 weeks gestation Juancarlos-2 Rahul In Womens Ultrasound of 8-201 [place]. 700 [facility] [place], pregnancyEncounter 7 Medical PO Box for Center 1522, screening of mother [place], 120, [place], [place], , [place], [place] [id number] tel: , [place]. tel: [phone] Lowell Mishra 16 weeks gestation Juancarlos-0 Rahul In Womens of 1 [place]. 700 [facility] [place], pregnancyEncounter 7 Medical PO Box for suprvsn of Center 1522, normal , [place], second trimester 120, [place], [place], , [place], [place] [id number] tel: , . tel: [phone] Lowell Mishra 13 weeks gestation May-1 Rahul In Womens of 1- [place]. 700 [facility] [place], pregnancyEncounter 7 Medical PO Box for suprvsn of Center 1522, normal , [place], first trimester 120, [place], [place], , [place], [place] [id number] tel: , [place]. tel: [phone] Lowell Mishra Endo, nutritional May-1 Rahul In Womens Ultrasound and metab diseases 1-201 [place]. 700 [facility] [place], comp preg, first 7 Medical PO Box tri13 weeks Center 1522, gestation of [place], pregnancyEncounter 120, [place], for suprvsn of [place], [id number], normal , [place], [place] first trimester [id number] tel:+ , [place]. tel: [phone] [facility] Encounter for May-0 Rahul In Womens suprvsn of normal 9-201 [place]. 700 [facility] [place], , first 7 Medical PO Box [email or web address] weeks Center 1522, gestation of [place], 120, [place], [place], [id number], [place], [place] [id number] tel:+ , [place]. tel: [phone] [facility] Contact w and Apr-2 Rahul In Womens exposure to infect 0-201 [place]. 700 [facility] [place], w a sexl mode of 7 Medical PO Box [facility] 1522, for suprvsn of [place], normal , 120, [place], first [id number] Mishra, , weeks gestation of [place], [place] [id number] tel:+ , [place]. tel: [phone] Lowell Mishra Encounter for Apr-1 Rahul In Womens suprvsn of normal 2-201 [place]. 700 [facility] [place], , first 7 Medical PO Box trimester9 weeks Center 1522, gestation of [place], 120, [place], [place], , [place], [place] [id number] tel:+ , [place]. tel: [phone] Lowell Mishra Generalized anxiety Apr-1 Rahul In Womens disorder9 weeks 0-201 [place]. 700 [facility] [place], gestation of 7 Medical PO Box Center 1522, [place], 120, [place], [place], [id number], [place], [place] [id number] tel:+ , [place]. tel: [phone] Lowell Mishra Encounter for Mar-3 Rahul In Womens suprvsn of normal 0-201 [place]. 700 [facility] [place], , first 7 Medical PO Box trimesterLess than Center 1522, 8 weeks gestation [place], of 120, [place], [place], , [place], [place] [id number] tel: , [place]. tel: [phone] [facility] state, Mar-1 Rahul In Womens incidental8 weeks 6-201 AdrianMireya 700 [facility], gestation of 7 Medical PO Box pregnancyEncounter [place] 1522, for suprvsn of [place], normal , 120, [place], first trimester Mishra, , [place], [place] [id number] tel: , [place]. tel: [phone] [facility] Irregular Mar-0 Gibbs In Womens MensesAbnormal Pap, 8-201 Mary Beth. [facility], LSILAbnormal Pap, 7 700 PO Box AGUSEncntr screen [facility] 1522, for infections w [place], sexl mode of [place], transmissEncounter 120, , for test, [place], result [place], tel: positive [phone] state, , [place]. incidental tel: state, incidental [phone] [facility] Encntr screen for Aug-2 Gibbs In Womens infections w sexl 2-201 [facility]. [facility], mode of 6 700 PO Box transmissPap Smear [place] [id number], Screening, [facility], CervixHigh risk [place], heterosexual 120, , behavior [place], [place], tel:[phone] , [place]. tel: [phone] [facility] Abnormal Pap, Mar-1 Rahul In Womens LSILAbnormal Pap, 1-201 AdrianMireya 700 [facility], LSILEncounter for 6 Medical PO Box test, [place] 1522, result negative [place], 120, [place], [place], , [place], [place] [id number] tel: , [place]. 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 [employer] [place], w/o abn 6 700 PO Box findingsEncntr Medical 1522, screen for [facility], infections w sexl , [place], mode of 120, [id number], transmissEncntr [place]ish[place], [place] screen for [place], tel: infections w sexl [phone] mode of , [place]. transmissPap Smear tel: Screening, Cervix [phone] [facility] Mar-0 Gibbs In Womens 4-200 Mary Beth. [employer] [place], 8 700 PO Box Medical 1522, [facility], , [place], 120, [id number], Mish[place], [place], tel: [phone] , [place]. tel: [phone] Family History Family Member Diagnosis Age At Onset Maternal uncle Diabetes mellitus Paternal Grandfather Diabetes mellitus Immunizations Vaccine Date Status Comments Unknown Payers Payer name Insurance type Covered constitution party ID Authorization(s) [employer] ([employer]) Medicare [facility] CI [id number] [facility] [id number] Medica [place] [id number] Social History Type Description Quantity Date Captured [...] Order: Radiology Order Ultrasound < 14 wks ([id number]) Ordered Future Order: Lab Order Pap Smear With HPV Reflex If ASCUS Ordered (WPMPap1) Future Order: Lab Order Pap Smear With HPV Reflex If ASCUS Ordered (WPMPap1) Future Order: Radiology Order Complete OB Ultrasound > 14 Ordered Weeks ([id number]) Date Type Problem Goal Intervention Status Start [...]
--- OUTSIDE RECORDS SUMMARY | 2017-02-22 11:09 | External Medical Summary ---
:1985 Author Organization [employer] Care Team Providers Name Role Phone Mitesh Dickinson Provider Role Unavailable Allergies No Known Allergies Problems Problem Type Condition ICD-9 Code Onset Dates Condition Status Problem Hyperlipemia 272.4 Active Medications Medication Code System Code Instructions Start Date End Date Status Dosage alprazolam [facility] [address]6878 0.25 mg orally 2 May 22, 2014 1 tab(s) times a day as needed for anxiety Results No Known Results Summary Purpose [employer] Submission
--- OUTSIDE RECORDS SUMMARY | 2017-02-22 11:09 | External Medical Summary | Continuity of Care Document ---
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 [address] [employer] [place], , third 7 Medical [address] [email or web address] weeks Center 1522, gestation of [place], 120, [place], [place], [id number], [place], [place] [id number] tel: , [place]. tel: [phone] Lowell Mishra Encounter for Sep-2 Rahul In Wom[facility] suprvsn of normal 2-201 [place]. [address] [employer] [place], , third 7 Medical PO Box [email or web address] weeks Center 1522, gestation of [place], 120, [place], [place], [id number], [place], [place] [id number] tel: , [place]. tel: [phone] Lowell Mishra Encounter for Sep-1 Rahul In Wom[facility] suprvsn of normal 9-201 [place]. [address] [employer] [place], , third 7 Medical PO Box [email or web address] weeks Center 1522, gestation of [place], 120, [place], [place], [id number], [place], [place] [id number] tel: , [place]. tel: [phone] Lowell Mishra Sep-1 Rahul In Womens 4-201 [place]. 700 [facility] [place], 7 Medical PO Box Center 1522, [place], 120, [place], [place], [id number], [place], [place] [id number] tel: , [place]. tel: [phone] [facility] Abnormal Pap, Sep-0 Rahul In Womens LSILAbnormal Pap, 6-201 [place]. 700 [facility] [place], LSILEncounter for 7 Medical PO Box suprvsn of normal Center 1522, , third [place], trimesterEncounter 120, [place], for suprvsn of Tad, , normal , [place], [place] third [email or web address] tel:+ weeks gestation of , [place]. weeks tel: gestation of [phone] [facility] Endo, nutritional Aug-2 Rahul In Wom[facility] and metab diseases 3-201 [place]. [facility] [place], comp preg, third 7 Medical PO Box [id number] weeks Center 1522, gestation of [place], pregnancyEncounter 120, [place], for suprvsn of T[place], [id number], normal , [place], [place] third trimester [id number] tel: , . tel: [phone] Lowell Mishra Encounter for George-2 Rahul In Womens suprvsn of normal 6-201 [place]. 700 [facility] [place], , second 7 Medical PO Box weeks Center 1522, gestation of [place], 120, [place], [place], [id number], [place], [place] [id number] tel: , . tel: [phone] Lowell Mishra Encounter for George-2 Rahul In Womens suprvsn of normal 0-201 [place]. 700 [facility] [place], , second 7 Medical PO Box [email or web address] weeks Center 1522, gestation of [place], 120, [place], [place], [id number], [place] [id number] tel: , [place]. tel: [phone] Lowell Mishra 22 weeks gestation George-1 Rahul In Womens of 2-201 [place]. 700 [facility] [place], pregnancyEncounter 7 Medical PO Box for suprvsn of Center 1522, normal , [place], second trimester 120, [place], [place], [id number], [place] [id number] tel:+ , [place]. tel:[phone] [facility] 20 weeks gestation Juancarlos-2 Rahul In Womens of 8-201 [place]. 700 [facility] [place], pregnancyEncounter 7 Medical PO Box for suprvsn of Center 1522, normal , [place], second trimester 120, [place], [place]ishra, [id number], [place], [place] [id number] tel:+ , [place]. tel:[phone] [facility] Encounter for Juancarlos-2 [facility]ul In [facility] Ultrasound screening 8 [place]. 700 [facility] [place], of [email or web address] weeks 7 Medical PO Box gestation of [place] 1522, [place], 120, [place], [place], , [place] [id number] tel:+ , [place]. tel: [phone] [facility] Encounter for Juancarlos-0 Rahul In Womens suprvsn of normal 1-201 [place]. 700 [facility] [place], , second 7 Medical PO Box [email or web address] weeks Center 1522, gestation of [place], 120, [place], [place], [id number], [place], [place] [id number] tel:+ , [place]. tel:[phone] Lowell Mishra Encounter for May-1 Rahul In Womens suprvsn of normal 1-201 [place]. 700 [facility] [place], , first 7 Medical PO Box [email or web address] weeks Center 1522, gestation of [place], 120, [place], [place], [id number], [place], [place] [id number] tel:+ , [place]. tel:[phone] [facility] Endo, nutritional May-1 Rahul In W[facility] Ultrasound and metab diseases 1-201 [place]. 700 [facility] [place], comp preg, first 7 Medical PO Box triEncounter for Center 1522, suprvsn of normal [place], , first 120, [place], weeks Mishra, , gestation of [place], [place] [id number] tel: , [place]. tel: [phone] [facility] Encounter for May-0 Rahul In Womens suprvsn of normal 9-201 [place]. 700 [facility] [place], , first 7 Medical PO Box [email or web address] weeks Center 1522, gestation of [place], 120, [place], [place], [id number], [place], [place] tel:+ , [place]. tel: [phone] [facility] Contact w and Apr-2 Rahul In Wom[facility] exposure to infect 0-201 [place]. 700 [facility] [place], w a sexl mode of 7 Medical PO Box [email or web address] weeks Center 1522, gestation of [place], [facility] 120, [place], for suprvsn of Mishra, , normal , [place], [place] first trimester tel:+ , [place]. tel: [phone] [facility] 9 weeks gestation Apr-1 Rahul In Womens of 2-201 [place]. 700 [facility] [place], pregnancyEncounter 7 Medical PO Box for suprvsn of Center 1522, normal , [place], first trimester 120, [place], [place], , [place], [place] tel:+ , [place]. tel: [phone] [facility] Generalized anxiety Apr-1 Rahul In Womens disorder9 weeks 0-201 [place]. 700 [facility] [place], gestation of 7 Medical PO Box Center 1522, [place], 120, [place], [place], , [place], [place] [id number] tel:+ , [place]. tel: [phone] [facility] Less than 8 weeks Mar-3 Rahul In Womens gestation of 0-201 [place]. 700 [facility] [place], pregnancyEncounter 7 Medical PO Box for suprvsn of Center 1522, normal , [place], first trimester 120, [place], [place], , [place], [place] [id number] tel:+ , [place]. tel: [phone] Lowell Mishra state, Mar-1 Rahul In Womens incidental8 weeks 6-201 [place]. 700 [facility] [place], gestation of 7 Medical PO Box pregnancyEncounter Center 1522, for suprvsn of [place], normal , 120, [place], first trimester Mishra, [id number], [place], [place] [id number] tel: , [place]. tel: [phone] Lowell Mishra Irregular Mar-0 [place] In Womens MensesAbnormal Pap, 8-201 [place]. [facility] [place], LSILAbnormal Pap, 7 700 PO Box AGUSEncntr screen [facility] 1522, for infections w Center [facility], sexl mode of [place], transmissEncounter 120, , for test, Mishra, result [place], tel: positive [phone] state, , [place]. incidental tel: state, incidental [phone] [facility] Encntr screen for Aug-2 [place] In Womens infections w sexl 2-201 [place]. [facility] [place], mode of 6 700 PO Box transmissPap Smear [facility] 1522, Screening, [place], CervixHigh risk [place], heterosexual 120, [id number], behavior M[place], [place], tel: [phone] , [place]. tel: [phone] Lowell Mishra Abnormal Pap, Mar-1 Rahul In Womens LSILAbnormal Pap, 1-201 [place]. 700 [facility] [place], LSILEncounter for 6 Medical PO Box test, [place] 1522, result negative [place], 120, [place], Mishra, , [place], [place] [id number] tel: , [place]. 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 [facility] [place], w/o abn 6 700 PO Box findingsEncntr [facility] 1522, screen for Center [place], infections w sexl [place], mode of 120, [id number], transmissEncntr Mishra, screen for [place], tel: infections w sexl [phone] mode of , [place]. transmissPap Smear tel: Screening, Cervix [phone] [facility] Mar-0 [place] In Womens 4-200 [facility], 8 700 PO [place] [facility] 1522, [address] [place], [place], 120, [id number], [place], [place], tel: [phone] , [place]. tel: [phone] Family History Family Member Diagnosis Age At Onset Maternal uncle Diabetes mellitus Paternal Grandfather Diabetes mellitus Immunizations Vaccine Date Status Comments Unknown Payers Payer name Insurance type Covered libertarian ID Authorization(s) [facility] CI [id number] PRIM [facility] Medicaid [id number] [employer] CI [id number] Social History Type Description Quantity Date Captured Alcohol Use Details No Caffeine Use Details Unknown Tobacco Use Status Unknown Smoking Status Never smoker Vital Signs Date / Height Weight BMI Pulse Blood Temperature Respiratory Body Head BMI Time: Rate Pressure Rate Surface Circumference percentile Area 179.10 29.8 lbs 0 mm[Hg] 11:38 kg/m AM eter (2) Chief Complaint And Reason For Visit Unknown Chief Complaint And Reason For Visit Reason For Referral Reason For Referral Unknown Plan Of Care Date Type Action Status Appointment Kristal Dupree BOOKED Appointment Kristal Dupree BOOKED Future Order: Radiology Order Ultrasound < 14 wks ([id number]) Ordered Future Order: Lab Order Pap Smear With HPV Reflex If ASCUS Ordered ([id number]) Future Order: Lab Order Pap Smear With HPV Reflex If ASCUS Ordered ([id number]) Future Order: Radiology Order Complete OB Ultrasound > 14 Ordered Weeks ([id number]) Date Type Problem Goal Intervention Status Start [...]
[2017-02-22 11:29] VITALS: BMI 29.7
[2017-02-22] MEDS: LR 1,000 ML IV SCH ×2 (11:49→12:51)
--- NOTE | 2017-02-22 11:53 | Anesthesia Preoperative Report ---
Anesthesia Epidural/Spinal Rec - Date and Time Date: 02/22/17 Preoperative Diagnosis: Term Procedure: Plan: Spinal - Vital Signs /Para: P:1 - Medictaions & Allergies Inpatient Medications: Current Medications Lactated Ringer's (Lactated Ringers) 1,000 mls @ 999 mls/hr IV .Q1H1M VIGNESH Last Admin: 02/22/17 11:49 Dose: 999 mls/hr Allergies/Adverse Reactions: Allergies Allergy/AdvReac Type Severity Reaction Status Date / Time No Known Drug Allergies Allergy Severe Verified 01/12/16 11:26 - Home Medications Home Medications: Home Medications Medication Instructions Recorded Confirmed Type Levothyroxine Tab 1 tab PO DAILY 02/03/17 02/19/17 History Vitamins 1 tab PO DAILY 02/03/17 02/19/17 History Proair Hfa 1 puff INH PRN PRN 02/03/17 02/19/17 History Valacyclovir [Valtrex] 1 tab PO PRN PRN 02/03/17 02/19/17 History - Medical History Respiratory: DENIES: Asthma, Bronchitis, Chronic Obstructive Pulmonary Disease (COPD), Dyspnea, Orthopnea, Pulmonary Embolism, Pneumonia, Upper Respiratory Infection, Pulmonary Edema, Sleep Apnea, Tuberculosis, Other Cardiovascular: DENIES: Abnormal EKG, Angina, Arrhythmia, Congestive Heart Failure, Coronary Artery Disease, Heart Murmur, Hypertension, Hypotension, High Cholesterol, Myocardial Infarction, Rheumatic Fever, Valvular Heart Disease, Other Gastrointestional: Reports: Gastroesophageal Reflux Disease (with ) Neuro/Musculoskeletal: Denies: HX.MS.OSAR, Back Problems, Cerebrovascular Accident, Depression, Headaches, Loss of Consciousness, Muscle Weakness, Neuromuscular Disorder, Paralysis, Paresthesia, Syncope, Seizures, Other Renal/Endocrine: Reports: Thyroid Disease (hypo) Other History: Reports: Now, Other (has never had GA) - Surgical History Anesthesia Reactions: None (Has never had GA) Hx Family Anesthesia Reaction: No History of Motion Sickness: No - Social History Substance Use Type: does not use - Pertinent Findings Lab Data: CBC and BMP 02/22/17 11:20 EKG Rhythm: Normal Sinus Rhythm - Physical Exam Respiratory Exam: lungs clear, bilateral breath sounds equal Cardiovascular Exam: regular rate and rhythm, no murmur - Airway Assessment Mallampati Score: II TMD: 3 Fingerbreadths Neck Extension: good Overall Assessment: may be difficult intubation - ASA ASA Score: 2 - Discussion Discussion: Discussed risks/options/alternatives of anesthesia and questions answered. Patient consents. Nursing pain assessment noted. Anesthesia Discussion: family member Attestation Statement: Prior to the delivery of any anesthetic medication, I examined the patient, developed the plan, obtained the patient's consent and discussed the risk and benefits of the procedure with the patient/guardian.
[2017-02-22] MEDS ORDERED: FentaNYL 100 MCG/2 ML INJECTION ONE (11:58)
[2017-02-22] MEDS ORDERED: ONDANSETRON 4 MG/2 ML INJECTION ONE (11:58)
[2017-02-22] MEDS ORDERED: SALINE FLUSH 10ml SYRINGE ONE (12:13)
[2017-02-22] MEDS ORDERED: EPHEDRINE 50mg/ml INJECTION ONE (12:59)
[2017-02-22] MEDS ORDERED: OXYTOCIN BOLUS BAG 30 UNIT/500 ML ML IV SCH (13:00)
[2017-02-22] MEDS ORDERED: HYDROMORPHONE PCA 30mg/30ml VIAL IV PRN (14:01)
[2017-02-22] MEDS ORDERED: SALINE FLUSH 10ml SYRINGE IV PRN (14:01)
[2017-02-22] MEDS ORDERED: OXYTOCIN DRIP 30 UNIT/500 ML ML IV SCH (14:01)
[2017-02-22] MEDS ORDERED: D5LR 1,000 ML IV SCH (14:01)
[2017-02-22] MEDS ORDERED: METOCLOPRAMIDE 10mg/2ml INJECTION IVP PRN (14:01)
[2017-02-22] MEDS ORDERED: HYDROCORTISONE 2.5% CREAM 30gm RECTALLY PRN (14:01)
[2017-02-22] MEDS ORDERED: SIMETHICONE 80 MG CHEWABLE TABLET PO PRN (14:01)
[2017-02-22] MEDS ORDERED: DiphenhydrAMINE 25 MG CAPSULE PO PRN (14:01)
[2017-02-22] MEDS ORDERED: CALCIUM CARBONATE Chewable 500mg TABLET PO PRN (14:01)
[2017-02-22] MEDS ORDERED: ACETAMINOPHEN 500 MG TABLET PO PRN (14:01)
[2017-02-22] MEDS: HYDROCODONE/APAP 5mg/325mg TABLET PO PRN ×2 (15:39→22:21)
[2017-02-22] MEDS: IBUPROFEN 800 MG TABLET PO PRN (15:39)
[2017-02-22] MEDS: SIMETHICONE 80 MG CHEWABLE TABLET PO SCH ×2 (22:21→23:13)
[2017-02-22] MEDS ORDERED: LR 1,000 ML IV SCH (23:00)
[2017-02-23] MEDS: IBUPROFEN 800 MG TABLET PO PRN ×2 (05:48→14:18)
[2017-02-23] MEDS: HYDROCODONE/APAP 5mg/325mg TABLET PO PRN ×4 (05:49→19:06)
--- NOTE | 2017-02-23 07:02 | Operative Note ---
DATE OF SURGERY: 02/22/2017 PREOPERATIVE DIAGNOSIS 1. 31-year-old white female, G2, P1 at 39.2 weeks gestational age. 2. Scheduled for HSV. 3. Hypothyroid. POSTOPERATIVE DIAGNOSIS Female infant, 8/9 Apgars, 3348 g (Derek Andrew), (7 pounds, 6.1 ounces). PROCEDURE: Primary low transverse section. EBL 750 ml SURGEON: Adrian Kay MD TRAVEL CONSULTANT: Bryan Moore, Rigging Supervisor COMPLICATIONS: None. This is a patient of mine who requested for h/o herpes. She reports regular outbreaks ands is on suppression although I don't think there is one currently going on, but she is a poor hstorian. She declines vaginal delivery for fear of implications in case there was herpes lesion. She wanted a tubal and then late last week she changed her mind, so no tube was done today. DESCRIPTION OF PROCEDURE After adequate spinal anesthesia, the patient was prepped and draped in the left lateral decubitus position. A Pfannenstiel skin incision was made with a sharp knife and carried down the fascia, which was incised transversely with the Noel scissors. The rectus fascia was bluntly and sharply dissected off the rectus muscle. The rectus muscle was divided, and the peritoneum was isolated, elevated, entered with the Metzenbaum scissors and extended cephalad and caudad. The bladder blade was then inserted. Then using a sharp knife, a transverse incision was made in the lower uterine segment above the bladder. This was extended with my fingers. A female was delivered from the vertex position without difficulty. Infant was bulb suctioned after delivery of the head and then again after delivery of the body. Cord was doubly clamped and cut and the infant was received by Dr. Ayden Feliciano of pediatrics. The placenta was expressed manually and was intact. The uterus was then allowed to fall upon the external abdominal wall. The endometrial cavity was cleansed using moist lap sponges. The uterus was closed using 0-Monocryl in a running locking fashion. Hemostasis was confirmed. The posterior cul-de-sac was cleansed of old blood clots and the tubes and ovaries were examined and found to be normal in size, shape and appearance. After hemostasis was again confirmed, the uterus was then carefully returned to the abdominal cavity. The abdomen was then closed in layers. The peritoneum was closed using 2-0 Vicryl in running nonlocking fashion. The fascia was closed using 0-Vicryl in a running nonlocking fashion bilaterally from the lateral aspects medially. Hemostasis was achieved with the subcutaneous tissue and then the skin was closed using wide rebecca in a serial fashion. Three horizontal mattress sutures were also placed. The patient tolerated the procedure well and went to the recovery room in stable condition. Pad, sponge and needle counts were correct and urine postop was clear and free flowing. MTDD
[2017-02-23] MEDS: LEVOTHYROXINE 50 MCG TABLET PO SCH (07:19)
--- NOTE | 2017-02-23 08:21 | Progress Note ---
OB PP Progress Note Free Text - Date Date: 02/23/17 - Progress Note Progress Note: vss af pain controlled increase activity q&a-krb
[2017-02-23] MEDS: DOCUSATE CALCIUM 240 MG CAPSULE PO SCH (08:30)
[2017-02-23] MEDS: SIMETHICONE 80 MG CHEWABLE TABLET PO SCH ×3 (08:30→19:06)
--- NOTE | 2017-02-23 11:07 | Anesthesia Postoperative Note ---
- Date and Time Date: 02/23/17 Time: 11:06 - Status Patient Participated in Evaluation: Patient Participated in Person Vital Signs: Temperature 97.8 F 02/23/17 09:32 Pulse Rate 75 02/23/17 09:32 Respiratory Rate 16 02/23/17 09:32 Blood Pressure 115/69 02/23/17 09:32 Pulse Oximetry 98 02/23/17 09:32 Respiratory Function: Airway Patent Cardiovascular Function: Regular Pulse Mental Status: Alert and Oriented Pain Intensity: 2 Hydration: Taking PO Fluids Complications During Recover: None Apparent Post Anesthesia Care Notes: full motor and sensation has returned - Follow-Up Instructions Instructions: Per Surgeon
--- NOTE | 2017-02-23 17:45 | Progress Note ---
OB PP Progress Note Free Text - Date Date: 02/23/17 - Progress Note Progress Note: doing well sitting up on couch q&a w/ pt and mother. krb
[2017-02-24] MEDS: HYDROCODONE/APAP 5mg/325mg TABLET PO PRN ×5 (00:23→20:53)
[2017-02-24] MEDS: SIMETHICONE 80 MG CHEWABLE TABLET PO SCH ×5 (00:23→20:53)
[2017-02-24] MEDS: IBUPROFEN 800 MG TABLET PO PRN ×3 (00:27→17:15)
[2017-02-24] MEDS: LEVOTHYROXINE 50 MCG TABLET PO SCH (07:38)
[2017-02-24] MEDS: DOCUSATE CALCIUM 240 MG CAPSULE PO SCH (08:54)
--- NOTE | 2017-02-24 11:22 | Progress Note ---
OB PP Progress Note Free Text - Date Date: 02/24/17 - Progress Note Progress Note: vss af incision c/d/i MoM for constipation feelings having PP Blues in evenings and request meds q&a
[2017-02-24] MEDS: SERTRALINE 50 MG TABLET PO SCH (14:00)
[2017-02-24 23:14] VITALS: RESP 16
[2017-02-25] MEDS: IBUPROFEN 800 MG TABLET PO PRN (06:03)
[2017-02-25] MEDS: HYDROCODONE/APAP 5mg/325mg TABLET PO PRN (06:03)
[2017-02-25] MEDS: LEVOTHYROXINE 50 MCG TABLET PO SCH (07:19)
[2017-02-25] MEDS: SERTRALINE 50 MG TABLET PO SCH (09:13)
[2017-02-25] MEDS: SIMETHICONE 80 MG CHEWABLE TABLET PO SCH (09:13)
[2017-02-25] MEDS: DOCUSATE CALCIUM 240 MG CAPSULE PO SCH (09:13)
--- NOTE | 2017-02-25 09:34 | Progress Note ---
OB PP Progress Note Free Text - Date Date: 02/25/17 - Progress Note Progress Note: vss af doing well plan dc today. fu Wednesday for staple removal q&a-krb
[2017-02-25 11:34] VITALS: BP 119/69; PULSE 66; TEMP 97.9; O2SAT 97
== END 2017-02-25 11:40 | disposition home or self-care (01) | DRG 766 ==
LOC: MC 10:36
PROVIDERS: ADMIT Obstetrics & Gynecology; ATTEND Obstetrics & Gynecology